=== PATIENT | male | born 1940 | race Two or more races ===

== ENCOUNTER → 2016-07-20 | Day surgery (SDC) | payer MEDICARE, OTHER ==
[2016-07-18 16:01] VITALS: BMI 31.1
[~2016-07-20] MED LIST: LACTATED RINGERS 1,000 ML IV SCH; LIDOCAINE 1% 20 ML VIAL (10MG/ML) FOR IV START INTRADERMA PRN; PROPOFOL 10 MG/ML 20 ML VIAL IV ONE
[2016-07-20 09:24] VITALS: RESP 18; TEMP 97.8
[2016-07-20 10:58] VITALS: BP 127/80; PULSE 65
--- NOTE | 2016-07-20 11:12 | P.PCN ---
Date of Procedure: 07/20/16 Procedure(s) Performed: BRIEF HISTORY: Patient is a 75-year-old pleasant white male, scheduled for an elective colonoscopy as a part of surveillance of prior history of colon polyps. His last coloscopy was 3 years ago and was noted to have multiple colon polyps most of which were tubular adenoma. He is hence scheduled for repeat surveillance colonoscopy today. PROCEDURE PERFORMED: Colonoscopy with snare polypectomy. PREOPERATIVE DIAGNOSIS: History of colon polyps. IV sedation per Anesthesia. PROCEDURE: After informed consent was obtained, the patient, was brought into the endoscopy unit. IV sedation was administered by Anesthesia under continuous monitoring. Digital rectal examination was normal. Initially the Olympus CF- 160 flexible video colonoscope was then inserted in the rectum, gradually advanced into the cecum without any difficulty. Careful examination was performed as the scope was gradually being withdrawn. Ileocecal valve and the appendiceal orifice were visualized and appeared normal. Prep was excellent. In the base of the cecum there was a centimeter broad-based polyp that was removed by snare polypectomy. In the ascending colon there was a 5 mm polyp removed by snare polypectomy. In the hepatic flexure there was a 2-3 cm polyp removed by snare polypectomy. In the transverse colon there was a 1 cm polyp removed by snare polypectomy. In the descending colon there was a 1 cm and 2 cm polyps removed by snare polypectomy. There are scattered sigmoid diverticulosis seen. Mucosa of the descending colon, sigmoid colon, and rectum appeared normal. At the sigmoid diverticula seen. Retroflexion was performed in the rectum and internal hemorrhoids were seen. The patient tolerated the procedure well. IMPRESSION: 2 cm broad-based cecal polyp status post snare polypectomy. 2-3 cm hepatic flexure polyp status post polypectomy 5 mm ascending colon polyp status post polypectomy 1 cm transverse colon polyp serous posterior polypectomy 1 cm and 2 cm descending colon polyp status post polypectomy RECOMMENDATIONS: Findings of this examination were discussed with the patient as well as his family. He was advised to follow with the biopsy results. If the biopsy shows a tubular adenoma he can have a repeat colonoscopy in one to 2 years. He was advised to resume Coumadin in 2 days..
== END | disposition home or self-care (01) ==
LOC: ORWHC2ENDO 08:51
PROVIDERS: ATTEND Internal Medicine Gastroenterology
DX: Z12.11 Encounter for screening for malignant neoplasm of colon (principal); D12.0 Benign neoplasm of cecum; D12.3 Benign neoplasm of transverse colon; D12.4 Benign neoplasm of descending colon; D12.5 Benign neoplasm of sigmoid colon; K57.30 Diverticulosis of large intestine without perforation or abscess without bleeding; Z86.010 Personal history of colon polyps; Z87.891 Personal history of nicotine dependence; I49.9 Cardiac arrhythmia, unspecified; I10 Essential (primary) hypertension; I97.89 Other postprocedural complications and disorders of the circulatory system, not elsewhere classified; I87.2 Venous insufficiency (chronic) (peripheral); Z79.01 Long term (current) use of anticoagulants; Z79.899 Other long term (current) drug therapy; Z87.19 Personal history of other diseases of the digestive system; Z88.2 Allergy status to sulfonamides
CPT/HCPCS: 45385; J2704; 88305

== ENCOUNTER → 2016-11-15 | Outpatient (CLI) | payer MEDICARE, OTHER ==
[2016-11-15 11:33] LABS: ALT 32 U/L (21-72); AST 29 U/L (17-59); Alkaline Phosphatase 96 U/L (38-126); Anion Gap 9 mmol/L; Blood Urea Nitrogen 20 mg/dL (9-20); Calcium 8.7 mg/dL (8.4-10.2); Carbon Dioxide 28 mmol/L (22-30); Chloride 105 mmol/L (98-107); Glucose 89 mg/dL (74-99); Non-African American GFR(MDRD) >60 (>60 ml/min/1.73 sqM); Potassium 4.6 mmol/L (3.5-5.1); Sodium 142 mmol/L (137-145); Total Bilirubin 1.1 mg/dL (0.2-1.3); Total Protein 6.9 g/dL (6.3-8.2)
[2016-11-15 11:36] LABS: Anisocytosis Slight; CH 25.9; HCT 39.7 % (39.0-53.0); HDW 2.66; HGB 12.1 gm/dL (13.0-17.5); Hypochromasia Slight; MCH 25.6 pg (25.0-35.0); MCHC 30.5 g/dL (31.0-37.0); MCV 84.2 fL (80.0-100.0); Mean Platelet Volume 9.3; RBC 4.72 m/uL (4.30-5.90); RDW 17.9 % (11.5-15.5); WBC 5.1 k/uL (3.8-10.6)
== END | disposition home or self-care (01) ==
LOC: LABPAT 10:47
PROVIDERS: ATTEND Anesthesiology
DX: Z01.812 Encounter for preprocedural laboratory examination (principal)
CPT/HCPCS: 80053; 85027

== ENCOUNTER → 2016-11-30 | Outpatient (CLI) | payer MEDICARE, OTHER | END | disposition home or self-care (01) | LOC: LABWHC1 11:35 | PROVIDERS: ATTEND Surgery | DX: Z01.812 Encounter for preprocedural laboratory examination (principal) | CPT/HCPCS: 86850; 86900; 86901 ==

== ENCOUNTER 2016-12-06 05:47 | Day surgery (SDC) | payer MEDICARE, OTHER ==
[2016-11-14 11:07] VITALS: BMI 31.1
[~2016-12-06 05:47] MED LIST changes: +HEPARIN SODIUM,PORCINE 5,000 UNIT/ML 1 ML VIAL SQ ONE; -LACTATED RINGERS 1,000 ML IV SCH; -LIDOCAINE 1% 20 ML VIAL (10MG/ML) FOR IV START INTRADERMA PRN; -PROPOFOL 10 MG/ML 20 ML VIAL IV ONE; +ceFAZolin 2 GM in SODIUM CHLORIDE 0.9% 100 ML IVPB ONE
[2016-12-06] MEDS ORDERED: HYDROmorphone 1 MG/ML 1 ML SYRINGE IVP PRN (06:07)
[2016-12-06] MEDS ORDERED: DEXAMETHASONE SOD PHOSPHATE 10 MG/ML 1 ML VIAL IV ONE (06:07)
[2016-12-06] MEDS ORDERED: LACTATED RINGERS 1,000 ML IV SCH (06:07)
[2016-12-06] MEDS ORDERED: LIDOCAINE 1% 20 ML VIAL (10MG/ML) FOR IV START INTRADERMA PRN (06:07)
[2016-12-06] MEDS ORDERED: ONDANSETRON 4 MG/2 ML VIAL IVP ONE ×2 (06:07→14:06)
[2016-12-06 07:26] LABS: INR 1.3 (<1.2); Prothrombin Time 12.4 sec (9.0-12.0)
[2016-12-06] MEDS ORDERED: fentaNYL (PF) 50 MCG/ML 2 ML AMP ONE (07:35)
[2016-12-06] MEDS ORDERED: LIDOCAINE 1% INJ 10MG/ML (20 ML MDV) ONE (07:35)
[2016-12-06] MEDS ORDERED: ROCURONIUM BROMIDE 10 MG/ML 10 ML VIAL IV ONE (07:35)
[2016-12-06] MEDS ORDERED: MIDAZOLAM 2 MG/2 ML VIAL ONE (07:35)
[2016-12-06] MEDS ORDERED: PROPOFOL 10 MG/ML 20 ML VIAL IV ONE (07:35)
[2016-12-06] MEDS ORDERED: SUCCINYLCHOLINE CHLORIDE 100 MG/5 ML SYR IV ONE (07:35)
[2016-12-06] MEDS ORDERED: GLYCOPYRROLATE 0.2 MG/ML 2 ML VIAL ONE (07:35)
[2016-12-06] MEDS ORDERED: ePHEDrine SULFATE/0.9% NACL/PF 50 MG/5 ML SYRINGE IV ONE (07:35)
[2016-12-06] MEDS ORDERED: NEOSTIGMINE 1 MG/ML 10 ML VIAL ONE (07:35)
[2016-12-06] MEDS ORDERED: LIDOCAINE 2%-EPI 1:100,000 20 ML VIAL SQ ONE (07:57)
[2016-12-06] MEDS ORDERED: LACTATED RINGERS 1,000 ML IV ONE ×2 (08:40→08:57)
[2016-12-06 10:34] VITALS: TEMP 97.6
--- NOTE | 2016-12-06 10:39 | P.OP ---
Date of Procedure: 12/06/16 Preoperative Diagnosis: Epigastric incisional hernia Postoperative Diagnosis: EPigastric incisional hernia Right lower quadrant adhesion Procedure(s) Performed: Transabdominal preperitoneal repair of epigastric incisional hernia with 10 x 15 Bard Pro nurse manager mesh Lysis of adhesion Anesthesia: MARYANN Surgeon: Beverly Moss Estimated Blood Loss (ml): 50 Pathology: none sent Condition: stable Disposition: PACU Operative Findings: 3 fascial defects in the epigastrium measuring between 0.4 and 1.5 cm. All of them were in the epigastrium at the site of the previous surgery Single omental band adhesion to the right-sided abdominal wall Description of Procedure: Obtaining informed consent patient was taken to the operating room placed in supine position given general anesthesia with endotracheal intubation. Sauceda catheter was placed as the patient has not urinated prior to the surgery. After appropriate timeout out the patient was prepped and draped in the usual sterile surgical fashion. Left upper quadrant was identified and incision made at the prominence point after local anesthesia. I abdomen was entered with the help of a Veress needle with out to and it was insufflated to 15 mmHg. Once the needle was removed Optiview technique was used to enter the abdominal cavity and place a 5 mm port. On entry was noted that the patient had a single band adhesion extending from the omentum to the right lower quadrant. The patient's epigastric hernia was above the L4 ligament. The robotic ports were placed under direct vision with the 8 mm port in the left lower quadrant with a 12 mm port in the appropriate separation in the left lower quadrant and then the 8 early Misbah port in the left upper quadrant. The patient was turned with the left arm up reverse Trendelenburg position. Robot was docked. Incision was made in the peritoneum appropriate distance from the hernia itself. And a preperitoneal plane was created and running towards the Flat position. The falciform ligament had to be transected and 1.8 to make a good flap once the flap had been made the hernia contents were removed revealing at least 3 consecutive fascial defects. These defects were then closed with 0V LOC. Retrimmed 10 x 15 Pro nurse manager mesh was then taken unrolled and put in appropriate position. It was tacked into position onto the anterior abdominal wall with loose air stitches using 2-0 Vicryl. The flap was then closed with 20V lock and all holes closed with Vicryl. Attention was then turned towards the adhesion which was taken down with the help of electrocautery. Bleeding a small abdominal wall attachment was closed shut with 2-0 Vicryl and bleeding controlled with the help of electrocautery. At the end all sponge needles and instruments were removed abdomen was thoroughly sucked dry there was no active bleeding at the completion of the procedure. The robot was then undocked and the 12 mm port site was closed with the help of a Audie Ford under direct vision using 0 Vicryl suture. At this time the gas was shut off and abdomen was thoroughly desufflated. All incisions were closed with 4-0 Maxon. Patient' s Sauceda was removed using extubated and taken to recovery room in stable condition. Patient's family was also informed about that finding of the adhesion with a possible hernia associated with it that may require surgery at a later date. Plan - Discharge Summary New Discharge Prescriptions: New HYDROcodone/APAP 5-325MG [Chester 5-325] 1 tab PO Q6HR PRN #25 tab PRN Reason: Pain No Action Nitroglycerin Sl Tabs [Nitrostat] 0.4 mg SUBLINGUAL DIRECTED PRN PRN Reason: Chest Pain amLODIPine [Norvasc] 5 mg PO QAM Warfarin [Coumadin] 5 mg PO MOTUTHSA PARoxetine [Paxil] 20 mg PO QAM Atenolol [Tenormin] 25 mg PO QAM Warfarin [Coumadin] 2.5 mg PO SUWEFR Isosorbide Mononitrate ER [Imdur] 30 mg PO QAM Furosemide [Lasix] 20 mg PO QAM Multivitamins, Thera [Multivitamin (formulary)] 1 tab PO DAILY Calcium Carbonate [Calcium] 600 mg PO DAILY Discharge Medication List Atenolol [Tenormin] 25 mg PO QAM 11/26/13 [History] Nitroglycerin Sl Tabs [Nitrostat] 0.4 mg SUBLINGUAL DIRECTED PRN 11/26/13 [ History] PARoxetine [Paxil] 20 mg PO QAM 11/26/13 [History] Warfarin [Coumadin] 5 mg PO MOTUTHSA 11/26/13 [History] amLODIPine [Norvasc] 5 mg PO QAM 11/26/13 [History] Isosorbide Mononitrate ER [Imdur] 30 mg PO QAM 07/14/14 [History] Warfarin [Coumadin] 2.5 mg PO SUWEFR 07/14/14 [History] Calcium Carbonate [Calcium] 600 mg PO DAILY 11/14/16 [History] Furosemide [Lasix] 20 mg PO QAM 11/14/16 [History] Multivitamins, Thera [Multivitamin (formulary)] 1 tab PO DAILY 11/14/16 [History ] HYDROcodone/APAP 5-325MG [Chester 5-325] 1 tab PO Q6HR PRN #25 tab 12/06/16 [Rx] Follow up Appointment(s)/Referral(s): Beverly Moss MD [STAFF PHYSICIAN] - 1 Week Activity/Diet/Wound Care/Special Instructions: Regular diet Ambulate as tolerated Use incentive spirometer as directed No driving on pain medications or when having pain May shower in 24 hours No heavy lifting more than 20 lbs for 6 weeks Discharge Disposition: HOME SELF-CARE
[2016-12-06 11:11] VITALS: RESP 18
[2016-12-06] MEDS ORDERED: HYDROcodone/APAP 5-325MG 1 EACH TAB PO ONE ×2 (11:59→13:21)
[2016-12-06] MEDS ORDERED: TAMSULOSIN 0.4 MG CAP.ER.24H PO ONE (12:00)
[2016-12-06 12:36] VITALS: PULSE 83
[2016-12-06 14:58] VITALS: BP 152/95
[2016-12-07] MEDS ORDERED: TAMSULOSIN 0.4 MG CAP.ER.24H PO SCH (08:30)
== END 2016-12-06 15:42 | disposition home or self-care (01) ==
LOC: OR 05:47 → EDSTATUS 07:30 → OR 15:42
PROVIDERS: ATTEND Surgery
DX: K43.2 Incisional hernia without obstruction or gangrene (principal); K66.0 Peritoneal adhesions (postprocedural) (postinfection); I48.91 Unspecified atrial fibrillation; Z79.01 Long term (current) use of anticoagulants; E66.9 Obesity, unspecified; Z68.39 Body mass index [BMI] 39.0-39.9, adult; Z87.891 Personal history of nicotine dependence; I25.10 Atherosclerotic heart disease of native coronary artery without angina pectoris; I10 Essential (primary) hypertension; Z79.899 Other long term (current) drug therapy; Z88.1 Allergy status to other antibiotic agents
CPT/HCPCS: 49654; 86900; 86901; 85610; 86850; C1781; J2250; J1644; J1100; J2710; J0690; J2405; J2001; J3010; J0330; J2704

== ENCOUNTER → 2017-08-05 | Outpatient (CLI) | payer MEDICARE, OTHER ==
--- NOTE | 2017-08-05 15:28 | CT ---
EXAMINATION TYPE: CT abdomen w con DATE OF EXAM: 08/05/2017 COMPARISON: Complete abdominal ultrasound November 10, 2013 HISTORY: renal cyst CT DLP: 1205 mGycm, Automated Exposure Control for Dose Reduction was Utilized. CONTRAST: CT scan of the abdomen is performed with oral and with IV Contrast, patient injected with 100 mL of I sovue 300. FINDINGS: LUNG BASES: There is cardiomegaly with moderate to severe biatrial dilatation. There is moderate to s evere right ventricular dilatation. RV/LV ratio is greater than 1. There is reflux of contrast into I VC and hepatic veins with IVC dilatation There is partial visualization of small to moderate-sized ri ght pleural effusion or fluid collection. There is patchy bibasilar linear scarring and/or atelectasi s. Sternal wires are partially imaged. LIVER/GB: Liver is slightly small in size with tiny amount of perihepatic ascites anteriorly and supe riorly. There is patent main portal vein not enlarged at 16 mm image 30 series 7. Liver is overall lo w density. PANCREAS: No significant abnormality is seen. SPLEEN: There is trace perisplenic ascites along posterior lateral margin axial image 15 ADRENALS: No significant abnormality is seen. KIDNEYS: In the right kidney there is partially exophytic 1.8 x 1.1 cm hypodense lesion, Hounsfield u nits average 24 favoring proteinaceous cyst axial series 3 image 33. In the left kidney there is small simple appearing parapelvic cyst axial image 35 series 7 measuring 1.5 cm. From upper pole level there is large exophytic thin-walled cyst with local mass effect measur ing 11 x 10 by almost 11 mm axial image 26 and coronal image 75. From lower pole level laterally ther e is 2.0 x 1.5 cm exophytic slightly low dense lesion with Hounsfield units averaging between 40 and 50 noted. BOWEL: The oral contrast does not reach colonic level. There is no suspicious small or large bowel di latation. LYMPH NODES: No greater than 1cm abdominal lymph nodes are appreciated. There are slightly prominent but subcentimeter lymph nodes throughout the retroperitoneum. OSSEOUS STRUCTURES: There is mild multilevel spurring in the spine. OTHER: No significant additional abnormality is seen. IMPRESSION: 1. Large exophytic 11 cm simple appearing cyst upper pole level left kidney with local mass effect, f elt increased in size from October 2013 ultrasound. Nonspecific hypodense lesions in both kidneys like ly reflect proteinaceous cysts as were seen on prior ultrasound. Cannot exclude solid lesion on the l eft side without noncontrast imaging correlation. 2. There is CT evidence consistent with right heart failure as there is cardiomegaly with right ventr icular dilatation, there is reflux of contrast into IVC with dilatation. There is at least small righ t pleural effusion and trace upper abdominal ascites noted.
== END | disposition home or self-care (01) ==
LOC: RADCTMAIN 13:54
PROVIDERS: ATTEND Family Medicine
DX: N28.1 Cyst of kidney, acquired (principal); N28.89 Other specified disorders of kidney and ureter
CPT/HCPCS: 82565; 84520; 74160; 36415; Q9967

== ENCOUNTER → 2017-08-16 | Outpatient (CLI) | payer MEDICARE, OTHER ==
[2017-08-16 11:13] LABS: Calcium 9.4 mg/dL (8.4-10.2); Potassium 4.6 mmol/L (3.5-5.1)
== END | disposition home or self-care (01) ==
LOC: LABWHC1 10:26
PROVIDERS: ATTEND Internal Medicine Cardiovascular Disease
DX: I50.9 Heart failure, unspecified (principal)
CPT/HCPCS: 36415; 80048

== ENCOUNTER → 2017-10-11 | Outpatient (CLI) | payer MEDICARE, OTHER ==
--- NOTE | 2017-10-11 14:54 | US ---
EXAMINATION TYPE: US kidneys/renal and bladder DATE OF EXAM: 10/11/2017 COMPARISON: CT abdomen August 05, 2017 CLINICAL HISTORY: N28.1 Left renal cyst; bilateral renal cysts EXAM MEASUREMENTS: Right Kidney: 11.1 x 5.4 x 4.7 cm Left Kidney: 11.5 x 5.6 x 5.2 cm Post Void Residual Volume: patient was unable to void Right Kidney: mid lateral cortical cyst noted = 2.2 x 2.1 x 2.0cm; inferior cortical cyst is present = 0.7 x 0.8 x 0.7cm Left Kidney: large simple cyst superior pole = 11.8 x 10.8 x 10.4cm; lower pole cortical cyst = 1.5 x 1.5 x 1.4cm Bladder: not fully distended Bilateral Jets seen: no, only right ureteral jet was seen after 3 minute observation IMPRESSION: There is redemonstration of large otherwise simple appearing cyst measuring almost 12 cm long axis ex ophytically from upper pole level left kidney. Smaller appearing cysts are noted bilaterally. No worr isome solid or cystic renal mass is present on images saved.
== END | disposition home or self-care (01) ==
LOC: RADUSWWP 13:58
PROVIDERS: ATTEND Urology
DX: N28.1 Cyst of kidney, acquired (principal)
CPT/HCPCS: 76770

== ENCOUNTER 2018-10-12 09:48 | Emergency (ER) | payer MEDICARE, OTHER ==
[2018-10-12] MEDS ORDERED: ONDANSETRON 4 MG/2 ML VIAL IVP STA (10:38)
[2018-10-12 11:07] LABS: Basophils % (A) 0 %; Eosinophils # (A) 0.1 k/uL (0-0.7); Eosinophils % (A) 1 %; HCT 45.6 % (39.0-53.0); HGB 14.8 gm/dL (13.0-17.5); Lymphocytes # (A) 0.6 k/uL (1.0-4.8); Lymphocytes % (A) 11 %; MCHC 32.4 g/dL (31.0-37.0); MCV 86.6 fL (80.0-100.0); Mean Platelet Volume 8.9; Monocytes # (A) 0.4 k/uL (0-1.0); Monocytes % (A) 6 %; Neutrophils # (A) 4.4 k/uL (1.3-7.7); Neutrophils % (A) 79 %; Platelet Count 137 k/uL (150-450); RBC 5.27 m/uL (4.30-5.90); RDW 15.5 % (11.5-15.5); WBC 5.6 k/uL (3.8-10.6)
[2018-10-12 11:11] LABS: Albumin 4.4 g/dL (3.5-5.0); Calcium 9.2 mg/dL (8.4-10.2); Potassium 4.7 mmol/L (3.5-5.1); Total Bilirubin 1.9 mg/dL (0.2-1.3); Total Protein 7.4 g/dL (6.3-8.2)
[2018-10-12 11:29] LABS: Appearance,Urine Clear (Clear); Bilirubin,Urine Negative (Negative); Blood,Urine Trace (Negative); Color,Urine Yellow; Glucose,Urine (UA) Negative (Negative); Ketones,Urine Negative (Negative); Leukocyte Esterase,Urine Negative (Negative); Mucus,Urine Rare /hpf; Nitrite,Urine Negative (Negative); PH, Urine 5.5 (5.0-8.0); Protein,Urine Negative (Negative); RBC,Urine 2 /hpf (0-5); Specific Gravity,Urine 1.015 (1.001-1.035); Squamous Epithelial Cell,Urine <1 /hpf (0-4); Urobilinogen,Urine <2.0 mg/dL (<2.0)
--- NOTE | 2018-10-12 11:43 | ED ---
Abdominal Pain HPI - General Chief Complaint: Abdominal Pain Stated Complaint: Abd Pain Time Seen by Provider: 10/12/18 10:16 Source: patient Mode of arrival: ambulatory Limitations: no limitations - History of Present Illness Initial Comments: Patient is a 78-year-old male presenting to the emergency Department with complaints of abdominal pain since this morning. Patient states he has a history of multiple umbilical hernia repairs with the most recent being 2 years ago. Patient states he started noticing pain early this morning and the pain has progressed. Patient states when he lays down he sees a bulge in his stomach. Patient also admits to having nausea and and mild vomiting. Patient states his pain is right above his bellybutton, and at rest it is tolerable at 2 /10 pain. Patient is denying fever, chills, chest pain, cough, urinary complaints. Patient admits to having a bowel movement yesterday morning which was normal. Patient denies any other complaints at this time. Patient's son is here with him right now. Upon arrival, vital signs are stable patient is resting comfortably on the bed. - Related Data Home Medications Medication Instructions Recorded Confirmed Nitroglycerin Sl Tabs [Nitrostat] 0.4 mg SUBLINGUAL Q5M PRN 11/26/13 10/12/18 PARoxetine [Paxil] 20 mg PO QAM 11/26/13 10/12/18 Warfarin [Coumadin] 5 mg PO TUTHSA 11/26/13 10/12/18 Isosorbide Mononitrate ER [Imdur] 30 mg PO QAM 07/14/14 10/12/18 Metoprolol Succinate (ER) [Toprol 25 mg PO DAILY 10/12/18 10/12/18 Xl] Spironolactone [Aldactone] 25 mg PO DAILY 10/12/18 10/12/18 Warfarin [Coumadin] 2.5 mg PO SUMOWEFR 10/12/18 10/12/18 amLODIPine [Norvasc] 5 mg PO DAILY 10/12/18 10/12/18 Previous Rx's Medication Instructions Recorded Ondansetron Odt [Zofran Odt] 4 mg PO Q8HR PRN #10 tab 10/12/18 Allergies Allergy/AdvReac Type Severity Reaction Status Date / Time clindamycin Allergy Rash/Hives/ Verified 10/12/18 10:33 ITCHING MED USED FOR CHEMICAL STRESS Allergy Rash/Hives/ Uncoded 10/12/18 10:04 TEST ITCHING Review of Systems ROS Statement: Those systems with pertinent positive or pertinent negative responses have been documented in the HPI. ROS Other: All systems not noted in ROS Statement are negative. Past Medical History Past Medical History: Atrial Fibrillation, Chest Pain / Angina, Hypertension, Osteoarthritis (OA), Vascular Disorder Additional Past Medical History / Comment(s): VENTRAL HERNIA, HX OF COLON POLYPS, VENOUS INSUFFICIENCY-KATHY. 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, History of Any Multi-Drug Resistant Organisms: None Reported Past Surgical History: Cholecystectomy, Heart Catheterization Additional Past Surgical History / Comment(s): HEMORRHOIDECTOMY, HOLE IN HEART REPAIRED 1987(ATRIAL SEPTO DEFECT CLOSURE), "FLUID DRAINED OFF LEFT LUNG IN PAS T" Past Anesthesia/Blood Transfusion Reactions: No Reported Reaction Past Psychological History: Anxiety Smoking Status: Former smoker Past Alcohol Use History: None Reported Past Drug Use History: None Reported - Past Family History Father Family Medical History: Cancer Additional Family Medical History / Comment(s): LUNG CA Sister(s) Family Medical History: Cancer Additional Family Medical History / Comment(s): SKIN CA General Exam - General Exam Comments Initial Comments: GENERAL: Well-appearing, well-nourished and in no acute distress. HEAD: Atraumatic, normocephalic. EYES: Pupils equal round and reactive to light, extraocular movements intact, sclera anicteric, conjunctiva are normal. ENT: TMs normal, nares patent, oropharynx clear without exudates. Moist mucous membranes. NECK: Normal range of motion, supple without lymphadenopathy or JVD. LUNGS: Breath sounds clear to auscultation bilaterally and equal. No wheezes rales or rhonchi. HEART: Regular rate and rhythm without murmurs, rubs or gallops. ABDOMEN: Tender to palpation above the umbilicus. Small bulge noted superior to the umbilicus with abdominal contraction. Soft, hypoactive bowel sounds. No guarding, no rebound. No CVA tenderness. : Deferred EXTREMITIES: Normal range of motion, no pitting or edema. No clubbing or cyanosis. NEUROLOGICAL: Cranial nerves II through XII grossly intact. Normal speech, normal gait. PSYCH: Normal mood, normal affect. SKIN: Warm, Dry, normal turgor, no rashes or lesions noted. Limitations: no limitations Course Vital Signs 10/12/18 10/12/18 10:01 13:51 Temperature 97.6 F 98.2 F Pulse Rate 69 67 Respiratory 16 18 Rate Blood Pressure 136/84 136/95 O2 Sat by Pulse 96 97 Oximetry Medical Decision Making - Medical Decision Making Patient is a 78-year-old male presenting with abdominal pain since this morning. Patient admits to associated nausea and mild vomiting as well. Patient states he has a history of multiple umbilical hernias, last one repaired 2 years ago. Patient denies fever, chills. On exam patient has tenderness in the umbilical region, slight bulge with abdominal contraction. CBC shows no acute infection process. CMP shows bilirubin 1.9, AST 133, lipase 552. Everything else is within normal limits. UA is within normal limits. CT of the abdomen shows a cyst on the left kidney that has enlarged slightly since last exam. No other acute findings. Findings were discussed with the patient, discussed that abdominal pain is likely viral in nature versus dehydration. Patient has been pain-free since arrival. Patient states the Zofran did help with the nausea. Case was discussed with Dr. Villalobos is agrees patient is stable for discharge. Return parameters were discussed with the patient he verbalized understanding. Was recommended to the patient to follow up with his PCP next week to have his labs redrawn. Pt agreed. - Lab Data Result diagrams: 10/12/18 10:50 10/12/18 10:50 Lab Results 10/12/18 10/12/18 10/12/18 Range/Units 10:50 10:50 11:17 WBC 5.6 (3.8-10.6) k/uL RBC 5.27 (4.30-5.90) m/uL Hgb 14.8 (13.0-17.5) gm/dL Hct 45.6 (39.0-53.0) % MCV 86.6 (80.0-100.0) fL MCH 28.0 (25.0-35.0) pg MCHC 32.4 (31.0-37.0) g/dL RDW 15.5 (11.5-15.5) % Plt Count 137 L (150-450) k/uL Neutrophils % 79 % Lymphocytes % 11 % Monocytes % 6 % Eosinophils % 1 % Basophils % 0 % Neutrophils # 4.4 (1.3-7.7) k/uL Lymphocytes # 0.6 L (1.0-4.8) k/uL Monocytes # 0.4 (0-1.0) k/uL Eosinophils # 0.1 (0-0.7) k/uL Basophils # 0.0 (0-0.2) k/uL Sodium 140 (137-145) mmol/L Potassium 4.7 (3.5-5.1) mmol/L Chloride 104 (98-107) mmol/L Carbon Dioxide 27 (22-30) mmol/L Anion Gap 9 mmol/L BUN 23 H (9-20) mg/dL Creatinine 1.21 (0.66-1.25) mg/dL Est GFR (CKD-EPI)AfAm 65 (>60 ml/min/1.73 sqM) Est GFR (CKD-EPI)NonAf 56 (>60 ml/min/1.73 sqM) Glucose 105 H (74-99) mg/dL Calcium 9.2 (8.4-10.2) mg/dL Total Bilirubin 1.9 H (0.2-1.3) mg/dL AST 133 H (17-59) U/L ALT 59 (21-72) U/L Alkaline Phosphatase 95 (38-126) U/L Total Protein 7.4 (6.3-8.2) g/dL Albumin 4.4 (3.5-5.0) g/dL Lipase 552 H (23-300) U/L Urine Color Yellow Urine Appearance Clear (Clear) Urine pH 5.5 (5.0-8.0) Ur Specific [place] 1.015 (1.001-1.035) Urine Protein Negative (Negative) Urine Glucose (UA) Negative (Negative) Urine Ketones Negative (Negative) Urine Blood Trace H (Negative) Urine Nitrite Negative (Negative) Urine Bilirubin Negative (Negative) Urine Urobilinogen <2.0 (<2.0) mg/dL Ur Leukocyte Esterase Negative (Negative) Urine RBC 2 (0-5) /hpf Urine WBC 1 (0-5) /hpf Ur Squamous Epith Cells <1 (0-4) /hpf Urine Mucus Rare H (None) /hpf Disposition Clinical Impression: Abdominal pain Disposition: HOME SELF-CARE Condition: Stable Instructions (If sedation given, give patient instructions): Abdominal Pain (ED) Additional Instructions: Please return to the Emergency Department if symptoms worsen or any other concerns. Follow-up with PCP next week to have lab work rechecked. Prescriptions: Ondansetron Odt [Zofran Odt] 4 mg PO Q8HR PRN #10 tab PRN Reason: Nausea Is patient prescribed a controlled substance at d/c from ED?: No Referrals: Darian Jefferson DO [Primary Care Provider] - 1-2 days
--- NOTE | 2018-10-12 12:42 | CT ---
EXAMINATION TYPE: CT abdomen pelvis w con DATE OF EXAM: 10/12/2018 REFERENCE: NONE HISTORY: Pain HISTORY: Abdominal pain REFERENCE: Previous CT scan of the abdomen dated 08/05/2017. CT DLP: 1338.9 mGy Automated exposure control for dose reduction was used. TECHNIQUE: Helical acquisition through the abdomen and pelvis was obtained following the oral ingesti on of without Oral Contrast and following intravenous administration of 100 ml mL of Isovue 300. The data was reformatted in axial, coronal and sagittal projections. FINDINGS: The patient's right pleural effusion has resolved. There is some dependent atelectasis at the lung bases. There is atelectasis or early infiltrate within the left lingula. The heart is enlarg ed. There is no pericardial fluid. Within the abdomen, the gallbladder is been removed. The liver and spleen are normal. Both adrenal glands are normal. There is an enlarging, simple appearing cyst involving the upper pole of the left kidney. Previously this measured 1.1 x 1 x 1.1 cm. Today this measures 1.2 x 1.1 x 1.3 cm. There is a smaller, 2.[address] arising from the mid polar region of the left kidney. Additional cystic lesions are noted in the i nferior pole of the left kidney and also elsewhere in the right kidney. These appear unchanged. The pancreas is unremarkable. There is no significant retroperitoneal, iliac or inguinal adenopathy. The bladder is unremarkable. The rectum is full of feces. There is no significant diverticular change and there is no radiographic evidence of diverticulitis. The appendix is not visualized with certainty. Small bowel loops are of normal caliber. No free fluid and no free air is identified. There is degenerative change in the hips and spine. No bony destructive lesion is seen. IMPRESSION: 1. ENLARGING EXOPHYTIC LEFT UPPER POLE RENAL CYST. 2. CARDIOMEGALY. 3. DEGENERATIVE CHANGES IN THE HIPS AND SPINE.
[2018-10-12 13:53] VITALS: BP 136/95; PULSE 67; RESP 18; TEMP 98.2
== END 2018-10-12 13:55 | disposition home or self-care (01) ==
LOC: EC 09:48
DX: R10.9 Unspecified abdominal pain (principal); N28.1 Cyst of kidney, acquired; R19.05 Periumbilic swelling, mass or lump; R11.2 Nausea with vomiting, unspecified; I48.91 Unspecified atrial fibrillation; I10 Essential (primary) hypertension; F41.9 Anxiety disorder, unspecified; Z87.891 Personal history of nicotine dependence; Z88.1 Allergy status to other antibiotic agents; Z88.8 Allergy status to other drugs, medicaments and biological substances; Z79.01 Long term (current) use of anticoagulants; Z79.899 Other long term (current) drug therapy; Z86.010 Personal history of colon polyps; Z87.19 Personal history of other diseases of the digestive system; Z90.49 Acquired absence of other specified parts of digestive tract; Z98.890 Other specified postprocedural states
CPT/HCPCS: 36415; 80053; 83690; 85025; 81001; 74177; 99284; 96374; J2405; Q9967

== ENCOUNTER 2020-01-07 12:02 | Observation (INO) | payer MEDICARE, OTHER ==
[2020-01-07] MEDS ORDERED: PANTOPRAZOLE 40 MG/10 ML VIAL IVP STA (12:34)
[2020-01-07] MEDS ORDERED: MAG HYDROX/AL HYDROX/SIMETH 30 ML, HYOSCYAMINE ELIXIR 10 ML, LIDOCAINE VISCOUS 2% 10 ML PO STA ×3 (12:35)
--- NOTE | 2020-01-07 12:42 | ED ---
General Adult HPI - General Chief complaint: Recheck/Abnormal Lab/Rx Stated complaint: Abnormal EKG, sent by dr Time Seen by Provider: 01/07/20 12:26 Source: patient, RN notes reviewed, old records reviewed Mode of arrival: wheelchair - History of Present Illness Initial comments: 79-year-old male presenting with 4 days of lower chest and upper abdominal pain. Patient was seen in urgent care, noted to be in atrial fibrillation which the patient does have history of and was sent to the emergency department for evaluation. He reports a squeezing sensation that begins in his upper chest and travels into his abdomen. This is accompanied by increased saliva and nausea. He has no known history of coronary artery disease, no history of gastric reflux. He is on Coumadin with a history of atrial fibrillation. Denies melena. Denies bright red rectal bleeding. He had one episode of diarrhea. No fever. No shortness of breath. - Related Data Home Medications Medication Instructions Recorded Confirmed Nitroglycerin Sl Tabs [Nitrostat] 0.4 mg SUBLINGUAL Q5M PRN 11/26/13 01/07/20 PARoxetine [Paxil] 20 mg PO QAM 11/26/13 01/07/20 Metoprolol Succinate (ER) [Toprol 12.5 mg PO DAILY@1300 10/12/18 01/07/20 Xl] Furosemide [Lasix] 20 mg PO DAILY 01/07/20 01/07/20 Warfarin Sodium [Jantoven] 2.5 mg PO SUMOTUTHFR 01/07/20 01/07/20 Warfarin Sodium [Jantoven] 5 mg PO WESA 01/07/20 01/07/20 Allergies Allergy/AdvReac Type Severity Reaction Status Date / Time clindamycin Allergy Rash/Hives/ Verified 01/07/20 13:12 ITCHING MED USED FOR CHEMICAL STRESS Allergy Rash/Hives/ Uncoded 01/07/20 12:15 TEST ITCHING Review of Systems ROS Statement: Those systems with pertinent positive or pertinent negative responses have been documented in the HPI. ROS Other: All systems not noted in ROS Statement are negative. Past Medical History Past Medical History: Atrial Fibrillation, Chest Pain / Angina, Hypertension, Osteoarthritis (OA), Vascular Disorder Additional Past Medical History / Comment(s): VENTRAL HERNIA, HX OF COLON POLYPS, VENOUS INSUFFICIENCY-KATHY. 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, History of Any Multi-Drug Resistant Organisms: None Reported Past Surgical History: Cholecystectomy, Heart Catheterization Additional Past Surgical History / Comment(s): HEMORRHOIDECTOMY, HOLE IN HEART REPAIRED 1987(ATRIAL SEPTO DEFECT CLOSURE), "FLUID DRAINED OFF LEFT LUNG IN PAST", left eye cataract removed and implant Past Anesthesia/Blood Transfusion Reactions: No Reported Reaction Past Psychological History: Anxiety Smoking Status: Never smoker Past Alcohol Use History: None Reported Past Drug Use History: None Reported - Past Family History Father Family Medical History: Cancer Additional Family Medical History / Comment(s): LUNG CA Sister(s) Family Medical History: Cancer Additional Family Medical History / Comment(s): SKIN CA General Exam General appearance: alert, in no apparent distress Head exam: Present: atraumatic, normocephalic Eye exam: Present: normal appearance, PERRL ENT exam: Present: normal exam Neck exam: Present: normal inspection. Absent: tenderness, meningismus Respiratory exam: Present: normal lung sounds bilaterally. Absent: respiratory distress, wheezes Cardiovascular Exam: Present: regular rate, irregular rhythm, systolic murmur GI/Abdominal exam: Present: soft. Absent: distended, tenderness, guarding Extremities exam: Present: normal inspection, normal capillary refill. Absent: pedal edema, calf tenderness Neurological exam: Present: alert, oriented X3, CN II-XII intact. Absent: motor sensory deficit Psychiatric exam: Present: normal affect, normal mood Skin exam: Present: warm, dry, intact. Absent: cyanosis, diaphoretic Course Vital Signs 01/07/20 01/07/20 12:11 13:17 Temperature 98.0 F Pulse Rate 76 71 Respiratory 18 18 Rate Blood Pressure 156/103 152/104 O2 Sat by Pulse 98 96 Oximetry EKG Findings - EKG Comments: EKG Findings:: EKG: Atrial fibrillation with PVC, left axis, right bundle-branch block, rate of 71, QRS duration 138, QTC 475, no ST segment elevation Medical Decision Making - Medical Decision Making 79-year-old male history of atrial fibrillation presenting for evaluation of chest discomfort. EKG is atrial fibrillation without ST segment elevation. Chest x-ray showing cardiomegaly without acute process. Patient has normal CBC, CMP show normal white lites, normal kidney function, initial troponin is negative. BNP is elevated, no clinical signs of acute heart failure. Patient will be kept in observation for serial cardiac enzymes, telemetry, cardiology consultation. - Lab Data Result diagrams: 01/07/20 12:40 01/07/20 12:40 Lab Results 01/07/20 01/07/20 01/07/20 Range/Units 12:40 12:40 12:40 WBC 6.7 (3.8-10.6) k/uL RBC 5.44 (4.30-5.90) m/uL Hgb 14.8 (13.0-17.5) gm/dL Hct 48.5 (39.0-53.0) % MCV 89.2 (80.0-100.0) fL MCH 27.1 (25.0-35.0) pg MCHC 30.4 L (31.0-37.0) g/dL RDW 15.4 (11.5-15.5) % Plt Count 135 L (150-450) k/uL Neutrophils % 83 % Lymphocytes % 9 % Monocytes % 6 % Eosinophils % 1 % Basophils % 0 % Neutrophils # 5.6 (1.3-7.7) k/uL Lymphocytes # 0.6 L (1.0-4.8) k/uL Monocytes # 0.4 (0-1.0) k/uL Eosinophils # 0.1 (0-0.7) k/uL Basophils # 0.0 (0-0.2) k/uL Hypochromasia Slight PT 15.8 H (9.0-12.0) sec INR 1.6 H (<1.2) APTT 29.6 (22.0-30.0) sec Sodium 139 (137-145) mmol/L Potassium 4.4 (3.5-5.1) mmol/L Chloride 106 (98-107) mmol/L Carbon Dioxide 26 (22-30) mmol/L Anion Gap 7 mmol/L BUN 18 (9-20) mg/dL Creatinine 1.01 (0.66-1.25) mg/dL Est GFR (CKD-EPI)AfAm 80 (>60 ml/min/1.73 sqM) Est GFR (CKD-EPI)NonAf 70 (>60 ml/min/1.73 sqM) Glucose 100 H (74-99) mg/dL Calcium 8.9 (8.4-10.2) mg/dL Magnesium 2.1 (1.6-2.3) mg/dL Total Bilirubin 2.6 H (0.2-1.3) mg/dL AST 40 (17-59) U/L ALT 23 (4-49) U/L Alkaline Phosphatase 97 (38-126) U/L Troponin I (0.000-0.034) ng/mL NT-Pro-B Natriuret Pep pg/mL Total Protein 7.5 (6.3-8.2) g/dL Albumin 4.4 (3.5-5.0) g/dL Lipase 166 (23-300) U/L 01/07/20 01/07/20 Range/Units 12:40 12:40 WBC (3.8-10.6) k/uL RBC (4.30-5.90) m/uL Hgb (13.0-17.5) gm/dL Hct (39.0-53.0) % MCV (80.0-100.0) fL MCH (25.0-35.0) pg MCHC (31.0-37.0) g/dL RDW (11.5-15.5) % Plt Count (150-450) k/uL Neutrophils % % Lymphocytes % % Monocytes % % Eosinophils % % Basophils % % Neutrophils # (1.3-7.7) k/uL Lymphocytes # (1.0-4.8) k/uL Monocytes # (0-1.0) k/uL Eosinophils # (0-0.7) k/uL Basophils # (0-0.2) k/uL Hypochromasia PT (9.0-12.0) sec INR (<1.2) APTT (22.0-30.0) sec Sodium (137-145) mmol/L Potassium (3.5-5.1) mmol/L Chloride (98-107) mmol/L Carbon Dioxide (22-30) mmol/L Anion Gap mmol/L BUN (9-20) mg/dL Creatinine (0.66-1.25) mg/dL Est GFR (CKD-EPI)AfAm (>60 ml/min/1.73 sqM) Est GFR (CKD-EPI)NonAf (>60 ml/min/1.73 sqM) Glucose (74-99) mg/dL Calcium (8.4-10.2) mg/dL Magnesium (1.6-2.3) mg/dL Total Bilirubin (0.2-1.3) mg/dL AST (17-59) U/L ALT (4-49) U/L Alkaline Phosphatase (38-126) U/L Troponin I <0.012 (0.000-0.034) ng/mL NT-Pro-B Natriuret Pep 3930 pg/mL Total Protein (6.3-8.2) g/dL Albumin (3.5-5.0) g/dL Lipase (23-300) U/L Disposition Clinical Impression: Chest pain Disposition: ADMITTED IP TO THIS [facility] Condition: Stable Is patient prescribed a controlled substance at d/c from ED?: No Referrals: Darian Jefferson DO [Primary Care Provider] - 1-2 days Decision to Admit Reason: Admit from EC Decision Date: 01/07/20 Decision Time: 13:49
--- NOTE | 2020-01-07 12:56 | XR ---
EXAMINATION TYPE: XR chest 2V DATE OF EXAM: 01/07/2020 COMPARISON: 12/01/2013 INDICATION: Chest pain TECHNIQUE: Frontal and lateral views of the chest are obtained. FINDINGS: The heart size is moderately prominent. The pulmonary vasculature is normal. The lungs are clear. IMPRESSION: 1. No acute pulmonary process. 2. Moderate cardiomegaly
[2020-01-07 13:02] LABS: Basophils % (A) 0 %; Eosinophils # (A) 0.1 k/uL (0-0.7); Eosinophils % (A) 1 %; HCT 48.5 % (39.0-53.0); HGB 14.8 gm/dL (13.0-17.5); Hypochromasia Slight; Lymphocytes # (A) 0.6 k/uL (1.0-4.8); Lymphocytes % (A) 9 %; MCH 27.1 pg (25.0-35.0); MCHC 30.4 g/dL (31.0-37.0); MCV 89.2 fL (80.0-100.0); Mean Platelet Volume 9.6; Monocytes # (A) 0.4 k/uL (0-1.0); Monocytes % (A) 6 %; Neutrophils # (A) 5.6 k/uL (1.3-7.7); Neutrophils % (A) 83 %; Platelet Count 135 k/uL (150-450); RBC 5.44 m/uL (4.30-5.90); RDW 15.4 % (11.5-15.5); WBC 6.7 k/uL (3.8-10.6)
[2020-01-07 13:05] LABS: INR 1.6 (<1.2); Partial Thromboplastin Time 29.6 sec (22.0-30.0); Prothrombin Time 15.8 sec (9.0-12.0)
[2020-01-07 13:08] LABS: Albumin 4.4 g/dL (3.5-5.0); Calcium 8.9 mg/dL (8.4-10.2); Magnesium 2.1 mg/dL (1.6-2.3); Potassium 4.4 mmol/L (3.5-5.1); Total Bilirubin 2.6 mg/dL (0.2-1.3); Total Protein 7.5 g/dL (6.3-8.2)
[2020-01-07] MEDS ORDERED: METOPROLOL SUCCINATE (ER) 25 MG TAB.ER.24H PO STA (13:21)
[2020-01-07] MEDS ORDERED: ASPIRIN 325 MG TAB PO STA (13:45)
[2020-01-07] MEDS ORDERED: NALOXONE 0.4 MG/ML 1 ML VIAL IV PRN (13:47)
[2020-01-07] MEDS ORDERED: ACETAMINOPHEN TAB 325 MG TAB PO PRN (13:47)
--- NOTE | 2020-01-07 16:50 | P.HPIM ---
History of Present Illness H&P Date: 01/07/20 Chief Complaint: Gripping sensation in the chest History of presenting complaint: This is a very pleasant 79-year-old patient of Dr. Jefferson. Chronic stable medical conditions include atrial fibrillation, hypertension, osteoarthritis, venous insufficiency, OCD. For 3-4 days patient said been noting a sensation of cramping sensation in the mid to lower chest central going to the abdomen. And sometimes a whole bunch of saliva coming out. Symptoms have been progressive. Not related to eating. Heart with activity. He had noticed it is worse if he is lying down. To the point he had to sit up and sleep yesterday. No fever no chills. No cough. Symptoms are not worse with activity. Occasional heartburn. Patient does follow with Dr. Gt Pollard from cardiology. Review of systems: GEN.: None EYES: None HEENT: None NECK: None RESPIRATORY: None CARDIOVASCULAR: As above GASTROINTESTINAL: As above GENITOURINARY: None MUSCULOSKELETAL: Joint pains LYMPHATICS: None HEMATOLOGICAL: None PSYCHIATRY: None NEUROLOGICAL: None Past medical history to include: Atrial fibrillation, GI bleed, hypertension, osteoarthritis, hemorrhoids, chronic lower extremity venous insufficiency with discoloration, surgery for ASD closure ventral hernia repair with mesh OCD Social history: Lives with his son Frank. Patient smoked for 6 years stopped in 1961. Record a pack a day. Occasional pipe smoking. No alcohol. Physical examination: VITAL SIGNS: 97.7, 78, 16, 162/105, 97% room air GENERAL: BMI 31.4, sitting up, slightly anxious. EYES: Pupils equal. Conjunctiva normal. HEENT: External appearance of nose and ears normal, oral cavity grossly normal. NECK: JVD not raised; masses not palpable. HEART: Heart sounds irregular; no edema. LUNGS: Respiratory rate normal; clear to auscultation. ABDOMEN: Soft, nontender, liver spleen not palpable, no masses palpable. PSYCH: Alert and oriented x3; mood and affect normal. MUSCULAR skeletal: Evidence of OA, NEUROLOGICAL: Cranial nerves grossly intact; no facial asymmetry, power and sensation grossly intact. LYMPHATICS: No lymph nodes palpable in the axilla and neck INVESTIGATIONS, reviewed in the clinical context: White count 6.7 hemoglobin 14.8 platelets 135 INR 1.6 potassium 4.4 creatinine 1.01 Troponin I less than 0.0122 proBNP 3930 EKG tracing personally reviewed by me-atrial fibrillation with PVCs, right bundle branch block pattern Chest x-ray film personally reviewed by me-cardiomegaly Assessment: -This is a patient for 40s having symptoms of spasms in the middle and lower third of the chest going down to the upper abdomen. Followed by large amount of saliva and fluid coming out. This appears to be a esophageal spasm with waterbrash, likely underlying hiatal hernia and silent reflux. -Rule out a cardiac cause -Persistent atrial fibrillation -Essential hypertension -Primary osteoarthritis -Chronic venous insufficiency -OCD Plan: Home medications resumed. Patient started on PPI and Tums. Patient to follow- up with GI as an outpatient. May need an EGD. The meantime patient is put on telemetry to rule out a cardiac cause. 2-D echocardiogram being ordered. Care was discussed with the patient. Questions answered. Past Medical History Past Medical History: Atrial Fibrillation, Chest Pain / Angina, GI Bleed, Hypertension, Osteoarthritis (OA), Vascular Disorder Additional Past Medical History / Comment(s): Arthritis in multiple joints, chronic cervical pain, lower GI bleed, hemorrhoids, benign colon polyps, venouse insufficiency/discoloration bilateral ankles/feet, fluid around L lung after heart surgery with chest tube and now that lung has some scarring. History of Any Multi-Drug Resistant Organisms: None Reported Past Surgical History: Cholecystectomy, Heart Catheterization Additional Past Surgical History / Comment(s): 1987 ASD closure, cardiac cath x2, colonoscopies/benign polypectomies, laparotomy with ventral hernia repair/mesh, bilateral eye cataract removals/lens implants then clouded over and has had L eye lasered. Past Anesthesia/Blood Transfusion Reactions: No Reported Reaction Additional Past Anesthesia/Blood Transfusion Reaction / Comment(s): Pt states he was slow to wake after last colonoscopy. Smoking Status: Former smoker - Past Family History Father Family Medical History: Cancer Additional Family Medical History / Comment(s): LUNG CA. FATHER WAS A SMOKER. Sister(s) Family Medical History: Cancer Additional Family Medical History / Comment(s): SKIN CA Mother Family Medical History: Dementia Medications and Allergies Home Medications Medication Instructions Recorded Confirmed Type Nitroglycerin Sl Tabs [Nitrostat] 0.4 mg SUBLINGUAL Q5M PRN 11/26/13 01/07/20 History PARoxetine [Paxil] 20 mg PO QAM 11/26/13 01/07/20 History Metoprolol Succinate (ER) [Toprol 12.5 mg PO DAILY@1300 10/12/18 01/07/20 History Xl] Furosemide [Lasix] 20 mg PO DAILY 01/07/20 01/07/20 History Warfarin Sodium [Jantoven] 2.5 mg PO SUMOTUTHFR 01/07/20 01/07/20 History Warfarin Sodium [Jantoven] 5 mg PO WESA 01/07/20 01/07/20 History Allergies Allergy/AdvReac Type Severity Reaction Status Date / Time clindamycin Allergy Rash/Hives/ Verified 01/07/20 13:12 ITCHING MED USED FOR CHEMICAL STRESS Allergy Rash/Hives/ Uncoded 01/07/20 12:15 TEST ITCHING Physical Exam Vitals: Vital Signs Temp Pulse Pulse Resp BP BP Pulse Ox 01/07/20 15:00 78 16 01/07/20 14:25 97.7 F 78 16 162/105 97 01/07/20 13:52 97.7 F 71 18 137/97 95 01/07/20 13:17 71 18 152/104 96 01/07/20 12:11 98.0 F 76 18 156/103 98 Intake and Output 01/07/20 01/07/20 01/07/20 06:59 14:59 22:59 Other: Voiding Method Toilet Weight 102.058 kg 102.058 kg Results CBC & Chem 7: 01/07/20 12:40 01/07/20 12:40 Labs: Abnormal Lab Results - Last 24 Hours (Table) 01/07/20 01/07/20 01/07/20 Range/Units 12:40 12:40 12:40 MCHC 30.4 L (31.0-37.0) g/dL Plt Count 135 L (150-450) k/uL Lymphocytes # 0.6 L (1.0-4.8) k/uL PT 15.8 H (9.0-12.0) sec INR 1.6 H (<1.2) Glucose 100 H (74-99) mg/dL Total Bilirubin 2.6 H (0.2-1.3) mg/dL Thrombosis Risk Factor Assmnt - Choose All That Apply Any of the Below Risk Factors Present?: Yes Each Factor Represents 1 point: Obesity (BMI >25) Other Risk Factors: Yes Each Risk Factor Represents 3 Points: Age 75 years or older Other congenital or acquired thrombophilia - If yes, enter type in comment: No Thrombosis Risk Factor Assessment Total Risk Factor Score: 4 Thrombosis Risk Factor Assessment Level: Moderate Risk
[2020-01-07] MEDS: CALCIUM CARBONATE LIQUID 500 MG/5 ML CUP PO SCH (17:43)
[2020-01-07] MEDS: PANTOPRAZOLE 40 MG TABLET PO SCH (17:43)
[2020-01-07] MEDS ORDERED: WARFARIN 5 MG TAB PO ONE (18:00)
[2020-01-08] MEDS: PANTOPRAZOLE 40 MG TABLET PO SCH (06:43)
[2020-01-08] MEDS: CALCIUM CARBONATE LIQUID 500 MG/5 ML CUP PO SCH ×2 (06:43→13:13)
[2020-01-08 07:11] LABS: Prothrombin Time 19.7 sec (9.0-12.0)
[2020-01-08] MEDS ORDERED: PARoxetine 20 MG TAB PO SCH (09:00)
[2020-01-08] MEDS ORDERED: PANTOPRAZOLE 40 MG/10 ML VIAL IV SCH (09:00)
[2020-01-08 09:37] VITALS: BP 148/102; PULSE 66; RESP 18; TEMP 97.8
--- NOTE | 2020-01-08 09:57 | P.CRDCN ---
History of Present Illness Consult date: 01/08/20 Consult reason: chest pain Chief complaint: Chest pain, nausea History of present illness: This is a pleasant 79-year-old gentleman who used to follow with Dr. VC Miller in the office, he follows with Dr. Reyna. He has a history of persistent atrial fibrillation, prior ASD closure several years ago, hyper tension. Presents to the hospital with symptoms that he describes as a midsternal chest pressure and heaviness which at times radiates up into his neck area. At the same time he is having the symptoms he also develops nausea and an uncomfortable feeling in his upper abdominal region. He does not have any vomiting. Patient did have one loose stool but overall his bowel movements have been normal. He denies any fever or chills at home. He also states that recently his blood pressure has been running on the high side. Upon review of the office notes, it appears that the patient had a Lexiscan stress test performed in October of this year which was negative for any reversible ischemia. EKG on presentation here showed atrial fibrillation with occasional PVC, rate controlled. Temperature 97.6, blood pressure 142/70 with a heart rate in the 60s, 96% on room air. White blood cell count 6.7, hemoglobin 14.8, platelet count 135. Pro time 19.2 with an INR of 2.0. Sodium 139, potassium 4.4, BUN 18, creatinine 0.0. Magnesium 2.1 troponin 0.0123 BNP level 3930 which was similar to the patient's prior BNP. Past Medical History Past Medical History: Atrial Fibrillation, Chest Pain / Angina, GI Bleed, Hypertension, Osteoarthritis (OA), Vascular Disorder Additional Past Medical History / Comment(s): Arthritis in multiple joints, chronic cervical pain, lower GI bleed, hemorrhoids, benign colon polyps, venouse insufficiency/discoloration bilateral ankles/feet, fluid around L lung after heart surgery with chest tube and now that lung has some scarring. History of Any Multi-Drug Resistant Organisms: None Reported Past Surgical History: Cholecystectomy, Heart Catheterization Additional Past Surgical History / Comment(s): 1987 ASD closure, cardiac cath x2, colonoscopies/benign polypectomies, laparotomy with ventral hernia repair/mesh, bilateral eye cataract removals/lens implants then clouded over and has had L eye lasered. Past Anesthesia/Blood Transfusion Reactions: No Reported Reaction Additional Past Anesthesia/Blood Transfusion Reaction / Comment(s): Pt states he was slow to wake after last colonoscopy. Smoking Status: Former smoker - Past Family History Father Family Medical History: Cancer Additional Family Medical History / Comment(s): LUNG CA. FATHER WAS A SMOKER. Sister(s) Family Medical History: Cancer Additional Family Medical History / Comment(s): SKIN CA Mother Family Medical History: Dementia Medications and Allergies Home Medications Medication Instructions Recorded Confirmed Type Nitroglycerin Sl Tabs [Nitrostat] 0.4 mg SUBLINGUAL Q5M PRN 11/26/13 01/07/20 History PARoxetine [Paxil] 20 mg PO QAM 11/26/13 01/07/20 History Metoprolol Succinate (ER) [Toprol 12.5 mg PO DAILY@1300 10/12/18 01/07/20 History Xl] Furosemide [Lasix] 20 mg PO DAILY 01/07/20 01/07/20 History Warfarin Sodium [Jantoven] 2.5 mg PO SUMOTUTHFR 01/07/20 01/07/20 History Warfarin Sodium [Jantoven] 5 mg PO WESA 01/07/20 01/07/20 History Allergies Allergy/AdvReac Type Severity Reaction Status Date / Time clindamycin Allergy Rash/Hives/ Verified 01/07/20 13:12 ITCHING MED USED FOR CHEMICAL STRESS Allergy Rash/Hives/ Uncoded 01/07/20 12:15 TEST ITCHING Physical Exam Vitals: Vital Signs Temp Pulse Pulse Resp BP BP BP 01/08/20 09:00 97.8 F 66 18 148/102 151/94 01/08/20 02:05 97.6 F 65 142/75 01/07/20 19:50 98.0 F 66 133/85 01/07/20 15:00 78 16 01/07/20 14:25 97.7 F 78 16 162/105 01/07/20 13:52 97.7 F 71 18 137/97 01/07/20 13:17 71 18 152/104 01/07/20 12:11 98.0 F 76 18 156/103 Pulse Ox 01/08/20 09:00 96 01/08/20 02:05 96 01/07/20 19:50 97 01/07/20 15:00 01/07/20 14:25 97 01/07/20 13:52 95 01/07/20 13:17 96 01/07/20 12:11 98 Intake and Output 01/07/20 01/08/20 01/08/20 22:59 06:59 14:59 Intake Total 300 120 Output Total 500 Balance 300 -500 120 Intake: Oral 300 120 Output: Urine 500 Other: Voiding Method Toilet Toilet Toilet # Voids 1 Weight 102.058 kg PHYSICAL EXAMINATION: GENERAL: 79-year-old gentleman in no acute distress at the time of my examination HEENT: Head is atraumatic, normocephalic. Pupils equal, round. Sclera anicteric. Conjunctiva are clear. Mucous membranes of the mouth are moist. Neck is supple. There is no elevated jugular venous pressure. No carotid bruit is heard. HEART EXAMINATION: Heart S1 and S2 irregularly irregular a systolic murmur is heard CHEST EXAMINATION: Lungs are clear to auscultation and precussion. No chest wall tenderness is noted on palpation or with deep breathing. ABDOMEN: Soft, obese, nontender. Bowel sounds are heard. No organomegaly noted. EXTREMITIES: 2+ peripheral pulses with trace evidence of peripheral edema and no calf tenderness noted. NEUROLOGIC patient is awake, alert and oriented 3 . . Results 01/07/20 12:40 01/07/20 12:40 Cardiac Enzymes 01/07/20 01/07/20 01/07/20 Range/Units 12:40 12:40 15:26 AST 40 (17-59) U/L Troponin I <0.012 <0.012 (0.000-0.034) ng/mL 01/07/20 Range/Units 19:17 AST (17-59) U/L Troponin I <0.012 (0.000-0.034) ng/mL Coagulation 01/07/20 01/08/20 Range/Units 12:40 06:42 PT 15.8 H 19.7 H (9.0-12.0) sec APTT 29.6 (22.0-30.0) sec CBC 01/07/20 Range/Units 12:40 WBC 6.7 (3.8-10.6) k/uL RBC 5.44 (4.30-5.90) m/uL Hgb 14.8 (13.0-17.5) gm/dL Hct 48.5 (39.0-53.0) % Plt Count 135 L (150-450) k/uL Comprehensive Metabolic Panel 01/07/20 Range/Units 12:40 Sodium 139 (137-145) mmol/L Potassium 4.4 (3.5-5.1) mmol/L Chloride 106 (98-107) mmol/L Carbon Dioxide 26 (22-30) mmol/L BUN 18 (9-20) mg/dL Creatinine 1.01 (0.66-1.25) mg/dL Glucose 100 H (74-99) mg/dL Calcium 8.9 (8.4-10.2) mg/dL AST 40 (17-59) U/L ALT 23 (4-49) U/L Alkaline Phosphatase 97 (38-126) U/L Total Protein 7.5 (6.3-8.2) g/dL Albumin 4.4 (3.5-5.0) g/dL Current Medications Generic Name Dose Route Start Last Admin Trade Name Freq PRN Reason Stop Dose Admin Acetaminophen 650 mg 01/07/20 13:47 Acetaminophen Tab 325 Mg Tab PO Q6HR PRN Mild Pain or Fever > 100.5 Calcium Carbonate/Glycine 500 mg 01/07/20 17:30 01/08/20 06:43 Calcium Carbonate Liquid 500 Mg/5 Ml Cup PO 500 mg TID-W/MEALS YURIY Administration Metoprolol Succinate 12.5 mg 01/08/20 13:00 01/08/20 08:53 Metoprolol Succinate (Er) 25 Mg Tab.Er.24h PO 12.5 mg DAILY@1300 [facility] Administration Miscellaneous Information 1 each 01/07/20 16:21 Warfarin Per Pharmacy MISCELLANE DIRECTED PRN Per Protocol Protocol Naloxone HCl 0.2 mg 01/07/20 13:47 Naloxone 0.4 Mg/Ml 1 Ml Vial IV Q2M PRN Opioid Reversal Pantoprazole Sodium 40 mg 01/07/20 17:30 01/08/20 06:43 Pantoprazole 40 Mg Tablet PO 40 mg AC-BID YURIY Administration Paroxetine HCl 20 mg 01/08/20 09:00 01/08/20 08:26 Paroxetine 20 Mg Tab PO 20 mg QAM YURIY Administration Warfarin Sodium 2.5 mg 01/08/20 18:00 Warfarin 2.5 Mg Tab PO 01/08/20 18:01 ONCE ONE Intake and Output 01/07/20 01/08/20 01/08/20 22:59 06:59 14:59 Intake Total 300 120 Output Total 500 Balance 300 -500 120 Intake: Oral 300 120 Output: Urine 500 Other: Voiding Method Toilet Toilet Toilet # Voids 1 Weight 102.058 kg 01/07/20 12:40 01/07/20 12:40 EKG Interpretations (text) EKG shows atrial fibrillation with occasional PVC Assessment and Plan Plan: Assessment and plan #1 chest discomfort with associated nausea and upper abdominal discomfort. Trop onins negative 3. EKG shows atrial fibrillation with controlled ventricular response and occasional PVC. Patient had a Lexiscan stress test performed in October which was negative for any reversible ischemia. #2 persistent atrial fibrillation on Coumadin for anticoagulation, INR 2.0 #3 history of ASD closure several years ago #4 hypertension Plan We will obtain an echocardiogram with Doppler study. We will not repeat a stress test as the patient just recently had one performed in October. Pain is somewhat atypical for acute coronary syndrome. We will review the echo, patient can follow-up with Dr. Pollard in the office. DNP note has been reviewed, I agree with a documented findings and plan of care. Patient was seen and examined.
--- NOTE | 2020-01-08 11:15 | ECHOF ---
Referral Reason:chest pain MEASUREMENTS -------- HEIGHT: 162.6 cm WEIGHT: 102.1 kg BP: RVIDd: 5.1 cm (< 3.3) IVSd: 1.4 cm (0.6 - 1.1) LVIDd: 4.0 cm (3.9 - 5.3) LVPWd: 1.4 cm (0.6 - 1.1) IVSs: 1.9 cm LVIDs: 3.5 cm LVPWs: 1.8 cm LA Diam: 7.4 cm (2.7 - 3.8) LAESV Index (A-L): 128.43 ml/m Ao Diam: 3.0 cm (2.0 - 3.7) AV Cusp: 1.9 cm (1.5 - 2.6) LA Diam: 7.6 cm (2.7 - 3.8) MV EXCURSION: 23.492 mm (> 18.000) MV EF SLOPE: 156 mm/s (70 - 150) EPSS: 0.2 cm RAP: 20.00 mmHg RVSP: 40.72 mmHg TAPSE: 17.18 mm FINDINGS -------- Atrial fibrillation. This was a technically adequate study. The left ventricular size is normal. There is moderate concentric left ventricular hypertrophy. O verall left ventricular systolic function is low-normal with, an EF between 50 - 55 %. Left ventric ular fillimg pressure cannot be estimated due to Atrial fibrillation. The right ventricle is severely enlarged. LA is severely dilated >40 ml/m2 The right atrium is markedly enlarged. Pt had ASD closure possible shunt. The aortic valve is trileaflet, and appears structurally normal. No aortic stenosis or regurgitation. The mitral valve leaflets are mildly thickened. Moderate mitral regurgitation is present. Moderate tricuspid regurgitation present. There is mild pulmonary hypertension. Trace/mild (physiologic) pulmonic regurgitation. The aortic root size is normal. There is no pericardial effusion. CONCLUSIONS -------- 1. There is moderate concentric left ventricular hypertrophy. 2. Overall left ventricular systolic function is low-normal with, an EF between 50 - 55 %. 3. Left ventricular fillimg pressure cannot be estimated due to Atrial fibrillation. 4. The right ventricle is severely enlarged. 5. LA is severely dilated >40 ml/m2 6. The right atrium is markedly enlarged. 7. Pt had ASD closure possible shunt. 8. The aortic valve is trileaflet, and appears structurally normal. No aortic stenosis or regurgitati on. 9. Moderate mitral regurgitation is present. 10. Moderate tricuspid regurgitation present. 11. There is mild pulmonary hypertension. 12. Trace/mild (physiologic) pulmonic regurgitation. 13. The aortic root size is normal. 14. There is no pericardial effusion. [employer]: Carla Mack RDCS
[2020-01-08] MEDS ORDERED: METOPROLOL SUCCINATE (ER) 25 MG TAB.ER.24H PO SCH (13:00)
[2020-01-08] MEDS ORDERED: WARFARIN 2.5 MG TAB PO ONE (18:00)
--- NOTE | 2020-01-08 23:55 | P.DS ---
Providers Date of admission: 01/07/20 13:47 Expected date of discharge: 01/08/20 Attending physician: Kristian Brink Consults: 01/07/20 13:47 Consult Physician Routine Consulting Provider: Jamel Hicks Consult Reason/Comments: CP Do you want consulting provider notified?: Yes Primary care physician: Darian [facility] Course: Chief Complaint: Gripping sensation in the chest History of presenting complaint: This is a very pleasant 79-year-old patient of Dr. Jefferson. Chronic stable medical conditions include atrial fibrillation, hypertension, osteoarthritis, venous insufficiency, OCD. For 3-4 days patient said been noting a sensation of cramping sensation in the mid to lower chest central going to the abdomen. And sometimes a whole bunch of saliva coming out. Symptoms have been progressive. Not related to eating. Heart with activity. He had noticed it is worse if he is lying down. To the point he had to sit up and sleep yesterday. No fever no chills. No cough. Symptoms are not worse with activity. Occasional heartburn. Patient does follow with Dr. Gt Pollard from cardiology. Patient symptoms felt to be from severe reflux. Seen by cardiology. Patient had a negative nuclear stress test in October of this year. Patient started on PPI. Symptoms much improved. Today-sitting up and eating. Symptoms much improved. Cleared for discharge. Blood pressure medicine adjusted. Consultation: Dr. Arias from cardiology. Physical examination: VITAL SIGNS: 97.8, 1866, 18, 151/94, 96% room air GENERAL: Sitting up, comfortable EYES: Pupils equal. Conjunctiva normal. NECK: JVD not raised; masses not palpable. HEART: Heart sounds irregular; no edema. LUNGS: Respiratory rate normal; clear to auscultation. ABDOMEN: Soft, nontender, liver spleen not palpable, no masses palpable. PSYCH: Alert and oriented x3; mood and affect normal. MUSCULAR skeletal: Evidence of OA, INVESTIGATIONS, reviewed in the clinical context: INR 2 Previous testing White count 6.7 hemoglobin 14.8 platelets 135 INR 1.6 potassium 4.4 creatinine 1.01 Troponin I less than 0.0122 proBNP 3930 EKG tracing personally reviewed by me-atrial fibrillation with PVCs, right bundle branch block pattern Chest x-ray film personally reviewed by me-cardiomegaly Assessment: -Possible esophageal spasm, POA -Uncontrolled GERD, POA -Persistent atrial fibrillation -Essential hypertension -Primary osteoarthritis -Chronic venous insufficiency -OCD Disposition: Home Patient Condition at Discharge: Stable Plan - Discharge Summary Discharge Rx Participant: No New Discharge Prescriptions: New Omeprazole [PriLOSEC] 20 mg PO AC-BID #60 cap Lisinopril-Hctz 20-12.5 mg [Zestoretic 20-12.5] 1 tab PO BID #60 tab Continue Nitroglycerin Sl Tabs [Nitrostat] 0.4 mg SUBLINGUAL Q5M PRN PRN Reason: Chest Pain PARoxetine [Paxil] 20 mg PO QAM Metoprolol Succinate (ER) [Toprol XL] 12.5 mg PO DAILY@1300 Warfarin Sodium [Jantoven] 5 mg PO WESA Warfarin Sodium [Jantoven] 2.5 mg PO SUMOTUTHFR Discontinued Furosemide [Lasix] 20 mg PO DAILY Discharge Medication List Nitroglycerin Sl Tabs [Nitrostat] 0.4 mg SUBLINGUAL Q5M PRN 11/26/13 [History] PARoxetine [Paxil] 20 mg PO QAM 11/26/13 [History] Metoprolol Succinate (ER) [Toprol XL] 12.5 mg PO DAILY@1300 10/12/18 [History] Warfarin Sodium [Jantoven] 2.5 mg PO SUMOTUTHFR 01/07/20 [History] Warfarin Sodium [Jantoven] 5 mg PO WESA 01/07/20 [History] Lisinopril-Hctz 20-12.5 mg [Zestoretic 20-12.5] 1 tab PO BID #60 tab 01/08/20 [Rx] Omeprazole [PriLOSEC] 20 mg PO AC-BID #60 cap 01/08/20 [Rx] Follow up Appointment(s)/Referral(s): Gt Pollard MD [STAFF PHYSICIAN] - 01/21/20 8:45 am Darian Jefferson DO [Primary Care Provider] - 1-2 days Discharge Disposition: HOME SELF-CARE
== END 2020-01-08 15:28 | disposition home or self-care (01) ==
LOC: EC 12:02 → 3NCARDOBS 13:47
PROVIDERS: ADMIT Hospitalist; ATTEND Hospitalist
DX: K21.9 Gastro-esophageal reflux disease without esophagitis (principal); I48.19 Other persistent atrial fibrillation; I11.9 Hypertensive heart disease without heart failure; M89.49 Other hypertrophic osteoarthropathy, multiple sites; I87.2 Venous insufficiency (chronic) (peripheral); F42.9 Obsessive-compulsive disorder, unspecified; F41.9 Anxiety disorder, unspecified; I49.3 Ventricular premature depolarization; I45.10 Unspecified right bundle-branch block; G89.29 Other chronic pain; M54.2 Cervicalgia; J98.4 Other disorders of lung; E66.9 Obesity, unspecified; Z79.01 Long term (current) use of anticoagulants; Z79.899 Other long term (current) drug therapy; Z88.1 Allergy status to other antibiotic agents; Z88.8 Allergy status to other drugs, medicaments and biological substances; Z86.010 Personal history of colon polyps; Z90.49 Acquired absence of other specified parts of digestive tract; Z98.890 Other specified postprocedural states; Z87.19 Personal history of other diseases of the digestive system; Z87.74 Personal history of (corrected) congenital malformations of heart and circulatory system; Z87.09 Personal history of other diseases of the respiratory system; Z98.42 Cataract extraction status, left eye; Z96.1 Presence of intraocular lens; Z87.891 Personal history of nicotine dependence; Z98.41 Cataract extraction status, right eye; Z91.89 Other specified personal risk factors, not elsewhere classified; Z68.31 Body mass index [BMI] 31.0-31.9, adult; Z80.1 Family history of malignant neoplasm of trachea, bronchus and lung; Z80.8 Family history of malignant neoplasm of other organs or systems; Z81.2 Family history of tobacco abuse and dependence; Z81.8 Family history of other mental and behavioral disorders
CPT/HCPCS: 96374; 99285; 36415; 93005; 93306; 83880; 80053; 83690; 83735; 84484; 85025; 85610 ×2; 85730; 71046; G0378 ×2; C9113

== ENCOUNTER 2021-01-16 00:06 | Emergency (ER) | payer MEDICARE ==
[2021-01-16 00:17] VITALS: BP 150/97
--- NOTE | 2021-01-16 00:41 | ED ---
Recheck HPI - General Chief Complaint: Recheck/Abnormal Lab/Rx Stated Complaint: Uncontrolled Bleeding Time Seen by Provider: 01/16/21 00:14 Source: patient, EMS, RN notes reviewed, old records reviewed Mode of arrival: EMS Limitations: no limitations - History of Present Illness Initial Comments: This is a 80-year-old male to the emergency department today. Patient presents today for evaluation bleeding. Patient is on anticoagulation. The top aspect of his right foot. Unsure of injury. Patient's taking stockings today had significant bleeding from that area. Not feeling lightheaded dizzy or weak and otherwise has no complaints. Denies trauma MD Complaint: wound re-check, other (Patient here for recheck of bleeding from right foot) -: hour(s) Returns Today for: other (Persistent bleeding) Symptoms Since Prior Visit: no new symptoms Associated Symptoms: none Treatments Prior to Arrival: dressings (Significant pressure dressing applied by EMS) - Related Data Home Medications Medication Instructions Recorded Confirmed Nitroglycerin Sl Tabs [Nitrostat] 0.4 mg SUBLINGUAL Q5M PRN 11/26/13 01/07/20 PARoxetine [Paxil] 20 mg PO QAM 11/26/13 01/07/20 Metoprolol Succinate (ER) [Toprol 12.5 mg PO DAILY@1300 10/12/18 01/07/20 XL] Warfarin Sodium [Jantoven] 2.5 mg PO SUMOTUTHFR 01/07/20 01/07/20 Warfarin Sodium [Jantoven] 5 mg PO WESA 01/07/20 01/07/20 Previous Rx's Medication Instructions Recorded Lisinopril-Hctz 20-12.5 mg 1 tab PO BID #60 tab 01/08/20 [Zestoretic 20-12.5] Omeprazole [PriLOSEC] 20 mg PO AC-BID #60 cap 01/08/20 Allergies Allergy/AdvReac Type Severity Reaction Status Date / Time clindamycin Allergy Rash/Hives/ Verified 01/16/21 00:17 ITCHING MED USED FOR CHEMICAL STRESS Allergy Rash/Hives/ Uncoded 01/16/21 00:17 TEST ITCHING Review of Systems ROS Statement: Those systems with pertinent positive or pertinent negative responses have been documented in the HPI. ROS Other: All systems not noted in ROS Statement are negative. Past Medical History Past Medical History: Atrial Fibrillation, Chest Pain / Angina, GI Bleed, Hypertension, Osteoarthritis (OA), Vascular Disorder Additional Past Medical History / Comment(s): Arthritis in multiple joints, chronic cervical pain, lower GI bleed, hemorrhoids, benign colon polyps, venouse insufficiency/discoloration bilateral ankles/feet, fluid around L lung after heart surgery with chest tube and now that lung has some scarring. History of Any Multi-Drug Resistant Organisms: None Reported Past Surgical History: Cholecystectomy, Heart Catheterization Additional Past Surgical History / Comment(s): 1988 ASD closure, cardiac cath x2, colonoscopies/benign polypectomies, laparotomy with ventral hernia repair/mesh, bilateral eye cataract removals/lens implants then clouded over and has had L eye lasered. Past Anesthesia/Blood Transfusion Reactions: No Reported Reaction Additional Past Anesthesia/Blood Transfusion Reaction / Comment(s): Pt states he was slow to wake after last colonoscopy. Past Psychological History: Anxiety Smoking Status: Former smoker Past Alcohol Use History: None Reported Past Drug Use History: None Reported - Past Family History Father Family Medical History: Cancer Additional Family Medical History / Comment(s): LUNG CA. FATHER WAS A SMOKER. Sister(s) Family Medical History: Cancer Additional Family Medical History / Comment(s): SKIN CA Mother Family Medical History: Dementia General Exam - General Exam Comments Initial Comments: Patient does have puncture wound on top of right foot that is actively exsanguinating Limitations: no limitations General appearance: alert, in no apparent distress Head exam: Present: atraumatic, normocephalic, normal inspection Eye exam: Present: normal appearance, PERRL, EOMI. Absent: scleral icterus, conjunctival injection, periorbital swelling ENT exam: Present: normal exam, mucous membranes moist Neck exam: Present: normal inspection. Absent: tenderness, meningismus, lymphadenopathy Respiratory exam: Present: normal lung sounds bilaterally. Absent: respiratory distress, wheezes, rales, rhonchi, stridor Cardiovascular Exam: Present: regular rate, normal rhythm, normal heart sounds. Absent: systolic murmur, diastolic murmur, rubs, gallop, clicks GI/Abdominal exam: Present: soft, normal bowel sounds. Absent: distended, tenderness, guarding, rebound, rigid Extremities exam: Present: normal inspection, full ROM, normal capillary refill. Absent: tenderness, pedal edema, joint swelling, calf tenderness Back exam: Present: normal inspection Neurological exam: Present: alert, oriented X3, CN II-XII intact Psychiatric exam: Present: normal affect, normal mood Skin exam: Present: warm, dry, intact, normal color. Absent: rash Course Vital Signs 01/16/21 00:08 Temperature 98.4 F Pulse Rate 117 H Respiratory 18 Rate Blood Pressure 150/97 O2 Sat by Pulse 97 Oximetry - Reevaluation(s) Reevaluation #1: 01/16/21 01:03 Medical records reviewed Reevaluation #2: 01/16/21 01:03 Patient has continued hemostasis Procedures - Laceration Laceration #1 Consent Obtained: verbal consent Indication: laceration Site: foot Size (cm): 1 Description: linear Depth: simple, single layer Anesthetic Used: lidocaine 1%, with epi Anesthesia Technique: local infiltration Type of Sutures: nylon Size of Sutures: 4-0 Technique: other ([id number] suture) Patient Tolerated Procedure: well Medical Decision Making - Medical Decision Making 80 male presents with significant bleeding on top of foot. Patient has puncture wound to top of foot. Figure 8 suture is used to repair bleeding, bleeding is stopped. Patient can be discharged home Disposition Clinical Impression: Puncture wound of foot Disposition: HOME SELF-CARE Condition: Good Instructions (If sedation given, give patient instructions): Care For Your Stitches (ED) Is patient prescribed a controlled substance at d/c from ED?: No Referrals: Darian Jefferson DO [Primary Care Provider] - 1-2 days
[2021-01-16] MEDS ORDERED: LIDOCAINE 1% INJ 10MG/ML (20 ML MDV) SQ STA (00:47)
[2021-01-16 01:10] VITALS: PULSE 87; RESP 20; TEMP 97.8
== END 2021-01-16 01:15 | disposition home or self-care (01) ==
LOC: SUPCPDRO 00:06 → EC 00:06
DX: S91.331A Puncture wound without foreign body, right foot, initial encounter (principal); I10 Essential (primary) hypertension; I48.91 Unspecified atrial fibrillation; Z88.1 Allergy status to other antibiotic agents; Z87.891 Personal history of nicotine dependence
CPT/HCPCS: 99283; 12001; J2001

== ENCOUNTER 2021-09-26 10:17 | Emergency (ER) | payer MEDICARE, OTHER ==
[2021-09-26 10:22] VITALS: BP 110/66; PULSE 83; RESP 18; TEMP 98
--- NOTE | 2021-09-26 10:50 | ED ---
Extremity Problem HPI - General Chief complaint: Extremity Problem,Nontraumatic Stated complaint: leg swelling Time Seen by Provider: 09/26/21 10:24 Source: patient, RN notes reviewed Mode of arrival: ambulatory Limitations: no limitations - History of Present Illness Initial comments: 81-year-old male presents emergency Department chief complaint of left leg pain, swelling. Patient states his happened 9 days ago in which she slipped on his tractor causing injury to his left leg from the PTO shaft on a stretcher. Patient states that his tetanus is up-to-date. Patient states her initial bruising, swelling which she's been waxing and waning states is increasing redness denies any. Chills no difficulty and bleeding. Patient states that he is on Xarelto for atrial fibrillation. - Related Data Home Medications Medication Instructions Recorded Confirmed Nitroglycerin Sl Tabs [Nitrostat] 0.4 mg SUBLINGUAL Q5M PRN 11/26/13 01/07/20 PARoxetine [Paxil] 20 mg PO QAM 11/26/13 01/07/20 Metoprolol Succinate (ER) [Toprol 12.5 mg PO DAILY@1300 10/12/18 01/07/20 XL] Warfarin Sodium [Jantoven] 2.5 mg PO SUMOTUTHFR 01/07/20 01/07/20 Warfarin Sodium [Jantoven] 5 mg PO WESA 01/07/20 01/07/20 Previous Rx's Medication Instructions Recorded Lisinopril-Hctz 20-12.5 mg 1 tab PO BID #60 tab 01/08/20 [Zestoretic 20-12.5] Omeprazole [PriLOSEC] 20 mg PO AC-BID #60 cap 01/08/20 Cephalexin [Keflex] 500 mg PO Q6HR #40 cap 09/26/21 Sulfamethox-Tmp 800-160Mg [Bactrim 1 each PO Q12HR #20 tab 09/26/21 Ds] Allergies Allergy/AdvReac Type Severity Reaction Status Date / Time clindamycin Allergy Rash/Hives/ Verified 01/16/21 00:17 ITCHING dipyridamole Allergy Rash/Hives Verified 09/26/21 10:23 [From Persantine] MED USED FOR CHEMICAL STRESS Allergy Rash/Hives/ Uncoded 01/16/21 00:17 TEST ITCHING Review of Systems ROS Statement: Those systems with pertinent positive or pertinent negative responses have been documented in the HPI. ROS Other: All systems not noted in ROS Statement are negative. Past Medical History Past Medical History: Atrial Fibrillation, Chest Pain / Angina, GI Bleed, Hypert ension, Osteoarthritis (OA), Vascular Disorder Additional Past Medical History / Comment(s): Arthritis in multiple joints, chronic cervical pain, lower GI bleed, hemorrhoids, benign colon polyps, venouse insufficiency/discoloration bilateral ankles/feet, fluid around L lung after heart surgery with chest tube and now that lung has some scarring. History of Any Multi-Drug Resistant Organisms: None Reported Past Surgical History: Cholecystectomy, Heart Catheterization Additional Past Surgical History / Comment(s): 1987 ASD closure, cardiac cath x2, colonoscopies/benign polypectomies, laparotomy with ventral hernia repair/mesh, bilateral eye cataract removals/lens implants then clouded over and has had L eye lasered. Past Anesthesia/Blood Transfusion Reactions: No Reported Reaction Additional Past Anesthesia/Blood Transfusion Reaction / Comment(s): Pt states he was slow to wake after last colonoscopy. Past Psychological History: Anxiety Smoking Status: Former smoker Past Alcohol Use History: None Reported Past Drug Use History: None Reported - Past Family History Father Family Medical History: Cancer Additional Family Medical History / Comment(s): LUNG CA. FATHER WAS A SMOKER. Sister(s) Family Medical History: Cancer Additional Family Medical History / Comment(s): SKIN CA Mother Family Medical History: Dementia General Exam Limitations: no limitations General appearance: alert, in no apparent distress Head exam: Present: atraumatic, normocephalic, normal inspection Eye exam: Present: normal appearance, PERRL, EOMI. Absent: scleral icterus, conjunctival injection, periorbital swelling ENT exam: Present: normal exam, normal oropharynx, mucous membranes moist Neck exam: Present: normal inspection, full ROM. Absent: tenderness, meningismus, lymphadenopathy Respiratory exam: Present: normal lung sounds bilaterally. Absent: respiratory distress, wheezes, rales, rhonchi, stridor Cardiovascular Exam: Present: regular rate, normal rhythm, normal heart sounds. Absent: systolic murmur, diastolic murmur, rubs, gallop, clicks Extremities exam: Present: other (Left leg posterior calf there is small wound noted there is surrounding ecchymotic area and erythema there is increase in warmth to palpation, pulse equal bilaterally) Neurological exam: Present: alert Course Vital Signs 09/26/21 10:18 Temperature 98.0 F Pulse Rate 83 Respiratory 18 Rate Blood Pressure 110/66 O2 Sat by Pulse 99 Oximetry Medical Decision Making - Medical Decision Making X-rays negative for acute abnormality including foreign body. Patient was started on oral antibiotics for cellulitis. Patient will be started on Bactrim and Keflex given he has a clindamycin ALLERGY. Disposition Clinical Impression: Left leg cellulitis Disposition: HOME SELF-CARE Condition: Stable Instructions (If sedation given, give patient instructions): Cellulitis (ED) Additional Instructions: Please return to the Emergency Department if symptoms worsen or any other concerns. Prescriptions: Sulfamethox-Tmp 800-160Mg [Bactrim Ds] 1 each PO Q12HR #20 tab Cephalexin [Keflex] 500 mg PO Q6HR #40 cap Is patient prescribed a controlled substance at d/c from ED?: No Referrals: Darian Jefferson DO [Primary Care Provider] - 1-2 days Time of Disposition: 11:34
--- NOTE | 2021-09-26 11:29 | XR ---
EXAMINATION TYPE: XR tibia fibula 2 views LT DATE OF EXAM: 09/26/2021 Comparison: None Clinical History: 81-year-old male pain, swelling Findings: Some generalized soft tissue swelling especially distally. No acute fracture, subluxation, or disloca tion seen. Impression: Soft tissue swelling especially distally. No acute osseous abnormality is seen.
== END 2021-09-26 12:30 | disposition home or self-care (01) ==
LOC: EC 10:17
DX: L03.116 Cellulitis of left lower limb (principal); I10 Essential (primary) hypertension; Z87.891 Personal history of nicotine dependence; Z88.1 Allergy status to other antibiotic agents; Z88.8 Allergy status to other drugs, medicaments and biological substances; Z91.09 Other allergy status, other than to drugs and biological substances
CPT/HCPCS: 99283

== ENCOUNTER 2021-11-23 21:34 | Emergency (ER) | payer MEDICARE, OTHER ==
[2021-11-23 21:43] VITALS: BP 118/64; PULSE 77; RESP 15; TEMP 98.3
[2021-11-23] MEDS ORDERED: SILVER NITRATE APPLICATOR 1 EACH STICK..EA. TOPICAL STA (21:57)
[2021-11-23] MEDS ORDERED: LIDOCAINE 1%-EPI 1:100,000 20 ML VIAL SQ STA (22:00)
--- NOTE | 2021-11-23 23:23 | ED ---
Lower Extremity Injury HPI - General Chief Complaint: Extremity Injury, Lower Stated Complaint: Right extremity problem Time Seen by Provider: 11/23/21 21:47 Source: EMS Mode of arrival: EMS - History of Present Illness Initial Comments: Patient is an 81-year-old male presenting with chief complaint of bleeding varicose vein to the right lower leg. Patient initially sustained an injury a few weeks ago when he scratched his leg on his corduroy slippers. Patient was showering today when the scab to his injury came off and was bleeding profusely. Patient was brought to the ER by EMS, wound was treated with pressure dressing. Patient denies any numbness, tingling, weakness, lightheadedness, dizziness, chest pain, shortness of breath, extremity pain, redness, swelling, discharge, warmth. - Related Data Home Medications Medication Instructions Recorded Confirmed Nitroglycerin Sl Tabs [Nitrostat] 0.4 mg SUBLINGUAL Q5M PRN 11/26/13 01/07/20 PARoxetine [Paxil] 20 mg PO QAM 11/26/13 01/07/20 Metoprolol Succinate (ER) [Toprol 12.5 mg PO DAILY@1300 10/12/18 01/07/20 XL] Warfarin Sodium [Jantoven] 2.5 mg PO SUMOTUTHFR 01/07/20 01/07/20 Warfarin Sodium [Jantoven] 5 mg PO WESA 01/07/20 01/07/20 Previous Rx's Medication Instructions Recorded Lisinopril-Hctz 20-12.5 mg 1 tab PO BID #60 tab 01/08/20 [Zestoretic 20-12.5] Omeprazole [PriLOSEC] 20 mg PO AC-BID #60 cap 01/08/20 Cephalexin [Keflex] 500 mg PO Q6HR #40 cap 09/26/21 Sulfamethox-Tmp 800-160Mg [Bactrim 1 each PO Q12HR #20 tab 09/26/21 Ds] Allergies Allergy/AdvReac Type Severity Reaction Status Date / Time clindamycin Allergy Rash/Hives/ Verified 01/16/21 00:17 ITCHING dipyridamole Allergy Rash/Hives Verified 09/26/21 10:23 [From Persantine] MED USED FOR CHEMICAL STRESS Allergy Rash/Hives/ Uncoded 01/16/21 00:17 TEST ITCHING Review of Systems ROS Statement: Those systems with pertinent positive or pertinent negative responses have been documented in the HPI. ROS Other: All systems not noted in ROS Statement are negative. Past Medical History Past Medical History: Atrial Fibrillation, Chest Pain / Angina, GI Bleed, Hypertension, Osteoarthritis (OA), Vascular Disorder Additional Past Medical History / Comment(s): Arthritis in multiple joints, chronic cervical pain, lower GI bleed, hemorrhoids, benign colon polyps, venouse insufficiency/discoloration bilateral ankles/feet, fluid around L lung after heart surgery with chest tube and now that lung has some scarring. History of Any Multi-Drug Resistant Organisms: None Reported Past Surgical History: Cholecystectomy, Heart Catheterization Additional Past Surgical History / Comment(s): 1987 ASD closure, cardiac cath x2, colonoscopies/benign polypectomies, laparotomy with ventral hernia repair/mesh, bilateral eye cataract removals/lens implants then clouded over and has had L eye lasered. Past Anesthesia/Blood Transfusion Reactions: No Reported Reaction Additional Past Anesthesia/Blood Transfusion Reaction / Comment(s): Pt states he was slow to wake after last colonoscopy. Past Psychological History: Anxiety Smoking Status: Former smoker Past Alcohol Use History: None Reported Past Drug Use History: None Reported - Past Family History Father Family Medical History: Cancer Additional Family Medical History / Comment(s): LUNG CA. FATHER WAS A SMOKER. Sister(s) Family Medical History: Cancer Additional Family Medical History / Comment(s): SKIN CA Mother Family Medical History: Dementia General Exam Limitations: no limitations General appearance: alert, in no apparent distress Head exam: Present: atraumatic, normocephalic, normal inspection Eye exam: Present: normal appearance, EOMI. Absent: scleral icterus, periorbital swelling Neck exam: Present: normal inspection Right Lower Leg exam: Present: full ROM, abrasion (Abrasion over varicose vein on right lower leg, this is continuously bleeding.). Absent: tenderness Neurovascular tendon exam: Absent: motor deficit, sensory deficit Neurological exam: Present: alert, oriented X3, CN II-XII intact Psychiatric exam: Present: normal affect, normal mood Skin exam: Present: warm, dry, normal color, abrasion (Right lower leg over varicose vein, this is continuously bleeding). Absent: rash Course Vital Signs 11/23/21 21:39 Temperature 98.3 F Pulse Rate 77 Respiratory 15 Rate Blood Pressure 118/64 O2 Sat by Pulse 99 Oximetry Medical Decision Making - Medical Decision Making Patient is an 81-year-old male presenting with chief complaint of bleeding varicose vein to the right lower leg. Patient had a scab over this area which fell off in the shower today. Patient called EMS and pressure dressing was applied to the wound. On examination there is a small wound over varicose vein on the right lower leg, this is continuing to bleed even after pressure dressing was applied.. Was injected with lidocaine 2% with epi and cauterized using silver nitrate sticks. Patient was observed and ambulated to ensure the wound was properly treated. Bleeding did not resume here in the ER. Follow-up with PCP. Report back to ER with any new or worsening symptoms. Discussed return parameters and answered all questions. Patient conveyed verbal understanding and agreed to the plan. I discussed this case with my attending Dr. Beltran. Disposition Clinical Impression: Bleeding from varicose vein Disposition: HOME SELF-CARE Condition: Good Instructions (If sedation given, give patient instructions): Venous Insufficiency (DC) Additional Instructions: Follow-up with PCP. Report back to ER with any new or worsening symptoms. Is patient prescribed a controlled substance at d/c from ED?: No Referrals: Darian Jefferson DO [Primary Care Provider] - 1-2 days Time of Disposition: 23:22
== END 2021-11-23 23:38 | disposition home or self-care (01) ==
LOC: EC 21:34
DX: I83.891 Varicose veins of right lower extremity with other complications (principal); I48.91 Unspecified atrial fibrillation; I10 Essential (primary) hypertension; Z87.891 Personal history of nicotine dependence; Z79.01 Long term (current) use of anticoagulants; Z79.899 Other long term (current) drug therapy; Z88.1 Allergy status to other antibiotic agents; Z88.5 Allergy status to narcotic agent
CPT/HCPCS: 99283; 99284

== ENCOUNTER 2022-01-01 15:16 | Inpatient (IN) | payer MEDICARE, OTHER ==
[2022-01-01] MEDS ORDERED: FUROSEMIDE 10 MG/ML 4 ML VIAL IV STA (15:41)
--- NOTE | 2022-01-01 15:51 | ED ---
General Adult HPI - General Chief complaint: Shortness of Breath Stated complaint: JASON Time Seen by Provider: 01/01/22 15:30 Source: patient, RN notes reviewed, old records reviewed Mode of arrival: EMS Limitations: no limitations - History of Present Illness Initial comments: This is an 81-year-old male who presents emergency Department complaining of difficulty breathing over the last 3 days. Patient states it seems to be getting worse slowly. Patient states she's also noticing more edema in the legs a little bit of fluid leaking out of the right lower leg. Patient denies any fever chills or cough. Patient denies any chest pain or palpitations. Patient denies lightheadedness or dizziness. Patient states he has had no abdominal pain denies nausea vomiting diarrhea. - Related Data Home Medications Medication Instructions Recorded Confirmed PARoxetine [Paxil] 20 mg PO DAILY 11/26/13 01/01/22 Furosemide [Lasix] 20 mg PO DAILY 01/01/22 01/01/22 Rivaroxaban [Xarelto] 20 mg PO DAILY@1700 01/01/22 01/01/22 Allergies Allergy/AdvReac Type Severity Reaction Status Date / Time clindamycin Allergy Rash/Hives/ Verified 01/01/22 16:33 ITCHING dipyridamole Allergy Rash/Hives Verified 01/01/22 16:33 [From Persantine] MED USED FOR CHEMICAL STRESS Allergy Rash/Hives/ Uncoded 01/01/22 16:33 TEST ITCHING Review of Systems ROS Statement: Those systems with pertinent positive or pertinent negative responses have been documented in the HPI. ROS Other: All systems not noted in ROS Statement are negative. Past Medical History Past Medical History: Atrial Fibrillation, Chest Pain / Angina, GI Bleed, Hypertension, Osteoarthritis (OA), Vascular Disorder Additional Past Medical History / Comment(s): Arthritis in multiple joints, chronic cervical pain, lower GI bleed, hemorrhoids, benign colon polyps, venouse insufficiency/discoloration bilateral ankles/feet, fluid around L lung after heart surgery with chest tube and now that lung has some scarring. History of Any Multi-Drug Resistant Organisms: None Reported Past Surgical History: Cholecystectomy, Heart Catheterization Additional Past Surgical History / Comment(s): 1987 ASD closure, cardiac cath x2, colonoscopies/benign polypectomies, laparotomy with ventral hernia repair/mesh, bilateral eye cataract removals/lens implants then clouded over and has had L eye lasered. Past Anesthesia/Blood Transfusion Reactions: No Reported Reaction Additional Past Anesthesia/Blood Transfusion Reaction / Comment(s): Pt states he was slow to wake after last colonoscopy. Past Psychological History: Anxiety Smoking Status: Former smoker Past Alcohol Use History: None Reported Past Drug Use History: None Reported - Past Family History Father Family Medical History: Cancer Additional Family Medical History / Comment(s): LUNG CA. FATHER WAS A SMOKER. Sister(s) Family Medical History: Cancer Additional Family Medical History / Comment(s): SKIN CA Mother Family Medical History: Dementia General Exam - General Exam Comments Initial Comments: GENERAL: Patient is well-developed and well-nourished. Patient is nontoxic and well- hydrated and is in mild distress. ENT: Neck is soft and supple. No significant lymphadenopathy is noted. Oropharynx is clear. Moist mucous membranes. Neck has full range of motion without eliciting any pain. EYES: The sclera were anicteric and conjunctiva were pink and moist. Extraocular movements were intact and pupils were equal round and reactive to light. Eye lids were unremarkable. PULMONARY: Unlabored respirations. Good breath sounds bilaterally. No audible rales rhonchi or wheezing was noted. CARDIOVASCULAR: There is a regular rate and rhythm without any murmurs gallops or rubs. ABDOMEN: Soft and nontender with normal bowel sounds. No palpable organomegaly was noted. There is no palpable pulsatile mass. SKIN: Skin is clear with no lesions or rashes and otherwise unremarkable. NEUROLOGIC: Patient is alert and oriented x3. Cranial nerves II through XII are grossly intact. Motor and sensory are also intact. Normal speech, volume and content. Symmetrical smile. MUSCULOSKELETAL: Normal extremities with adequate strength and full range of motion. 2+ edema bilaterally LYMPHATICS: No significant lymphadenopathy is noted PSYCHIATRIC: Normal psychiatric evaluation. Limitations: no limitations Course Vital Signs 01/01/22 15:18 Temperature 98.4 F Pulse Rate 91 Respiratory 18 Rate Blood Pressure 113/83 O2 Sat by Pulse 98 Oximetry Medical Decision Making - Medical Decision Making EKG shows atrial fibrillation at 82 bpm QRS is 131 Q-T intervals 439 QTC is 477. Patient has a right bundle branch block. V6 has quite a bit of noise in it. Chest x-ray shows pulmonary edema Patient's hemoglobin was low so I ordered a type and screen and continue doing CBCs. I spoke with [facility] they agreed to admit the patient admitted the patient - Lab Data Result diagrams: 01/01/22 16:03 01/01/22 16:03 Lab Results 01/01/22 01/01/22 01/01/22 Range/Units 16:03 16:03 16:03 WBC 4.5 (3.8-10.6) k/uL RBC 3.22 L (4.30-5.90) m/uL Hgb 7.6 L (13.0-17.5) gm/dL Hct 25.8 L (39.0-53.0) % MCV 80.2 (80.0-100.0) fL MCH 23.6 L (25.0-35.0) pg MCHC 29.4 L (31.0-37.0) g/dL RDW 15.8 H (11.5-15.5) % Plt Count 179 (150-450) k/uL MPV 10.3 Neutrophils % (Manual) 87 % Lymphocytes % (Manual) 8 % Monocytes % (Manual) 5 % Neutrophils # (Manual) 3.92 (1.3-7.7) k/uL Lymphocytes # (Manual) 0.36 L (1.0-4.8) k/uL Monocytes # (Manual) 0.23 (0-1.0) k/uL Nucleated RBCs 0 (0-0) /100 WBC Manual Slide Review Performed Hypochromasia Marked Poikilocytosis Moderate PT 14.2 H (9.0-12.0) sec INR 1.4 H (<1.2) APTT 33.2 H (22.0-30.0) sec Sodium 139 (137-145) mmol/L Potassium 4.8 (3.5-5.1) mmol/L Chloride 104 (98-107) mmol/L Carbon Dioxide 22 (22-30) mmol/L Anion Gap 13 mmol/L BUN 32 H (9-20) mg/dL Creatinine 1.32 H (0.66-1.25) mg/dL Est GFR (CKD-EPI)AfAm 58 (>60 ml/min/1.73 sqM) Est GFR (CKD-EPI)NonAf 50 (>60 ml/min/1.73 sqM) Glucose 99 (74-99) mg/dL Plasma Lactic Acid Polo (0.7-2.0) mmol/L Calcium 8.6 (8.4-10.2) mg/dL Magnesium 2.3 (1.6-2.3) mg/dL Total Bilirubin 1.2 (0.2-1.3) mg/dL AST 24 (17-59) U/L ALT 14 (4-49) U/L Alkaline Phosphatase 92 (38-126) U/L Troponin I (0.000-0.034) ng/mL NT-Pro-B Natriuret Pep pg/mL Total Protein 6.5 (6.3-8.2) g/dL Albumin 4.0 (3.5-5.0) g/dL Coronavirus (PCR) (Not Detectd) 01/01/22 01/01/22 01/01/22 Range/Units 16:03 16:03 16:03 WBC (3.8-10.6) k/uL RBC (4.30-5.90) m/uL Hgb (13.0-17.5) gm/dL Hct (39.0-53.0) % MCV (80.0-100.0) fL MCH (25.0-35.0) pg MCHC (31.0-37.0) g/dL RDW (11.5-15.5) % Plt Count (150-450) k/uL MPV Neutrophils % (Manual) % Lymphocytes % (Manual) % Monocytes % (Manual) % Neutrophils # (Manual) (1.3-7.7) k/uL Lymphocytes # (Manual) (1.0-4.8) k/uL Monocytes # (Manual) (0-1.0) k/uL Nucleated RBCs (0-0) /100 WBC Manual Slide Review Hypochromasia Poikilocytosis PT (9.0-12.0) sec INR (<1.2) APTT (22.0-30.0) sec Sodium (137-145) mmol/L Potassium (3.5-5.1) mmol/L Chloride (98-107) mmol/L Carbon Dioxide (22-30) mmol/L Anion Gap mmol/L BUN (9-20) mg/dL Creatinine (0.66-1.25) mg/dL Est GFR (CKD-EPI)AfAm (>60 ml/min/1.73 sqM) Est GFR (CKD-EPI)NonAf (>60 ml/min/1.73 sqM) Glucose (74-99) mg/dL Plasma Lactic Acid Polo 1.0 (0.7-2.0) mmol/L Calcium (8.4-10.2) mg/dL Magnesium (1.6-2.3) mg/dL Total Bilirubin (0.2-1.3) mg/dL AST (17-59) U/L ALT (4-49) U/L Alkaline Phosphatase (38-126) U/L Troponin I <0.012 (0.000-0.034) ng/mL NT-Pro-B Natriuret Pep 3140 pg/mL Total Protein (6.3-8.2) g/dL Albumin (3.5-5.0) g/dL Coronavirus (PCR) (Not Detectd) 01/01/22 Range/Units 16:03 WBC (3.8-10.6) k/uL RBC (4.30-5.90) m/uL Hgb (13.0-17.5) gm/dL Hct (39.0-53.0) % MCV (80.0-100.0) fL MCH (25.0-35.0) pg MCHC (31.0-37.0) g/dL RDW (11.5-15.5) % Plt Count (150-450) k/uL MPV Neutrophils % (Manual) % Lymphocytes % (Manual) % Monocytes % (Manual) % Neutrophils # (Manual) (1.3-7.7) k/uL Lymphocytes # (Manual) (1.0-4.8) k/uL Monocytes # (Manual) (0-1.0) k/uL Nucleated RBCs (0-0) /100 WBC Manual Slide Review Hypochromasia Poikilocytosis PT (9.0-12.0) sec INR (<1.2) APTT (22.0-30.0) sec Sodium (137-145) mmol/L Potassium (3.5-5.1) mmol/L Chloride (98-107) mmol/L Carbon Dioxide (22-30) mmol/L Anion Gap mmol/L BUN (9-20) mg/dL Creatinine (0.66-1.25) mg/dL Est GFR (CKD-EPI)AfAm (>60 ml/min/1.73 sqM) Est GFR (CKD-EPI)NonAf (>60 ml/min/1.73 sqM) Glucose (74-99) mg/dL Plasma Lactic Acid Polo (0.7-2.0) mmol/L Calcium (8.4-10.2) mg/dL Magnesium (1.6-2.3) mg/dL Total Bilirubin (0.2-1.3) mg/dL AST (17-59) U/L ALT (4-49) U/L Alkaline Phosphatase (38-126) U/L Troponin I (0.000-0.034) ng/mL NT-Pro-B Natriuret Pep pg/mL Total Protein (6.3-8.2) g/dL Albumin (3.5-5.0) g/dL Coronavirus (PCR) Not Detected (Not Detectd) Disposition Clinical Impression: Acute pulmonary edema, Anemia Disposition: ADMITTED IP TO THIS HOSP Referrals: Darian Jefferson DO [Primary Care Provider] - 1-2 days Time of Disposition: 17:23
[2022-01-01 16:18] LABS: HCT 25.8 % (39.0-53.0); HGB 7.6 gm/dL (13.0-17.5); Hypochromasia Marked; MCH 23.6 pg (25.0-35.0); MCHC 29.4 g/dL (31.0-37.0); MCV 80.2 fL (80.0-100.0); Mean Platelet Volume 10.3; Platelet Count 179 k/uL (150-450); Poikilocytosis Moderate; RBC 3.22 m/uL (4.30-5.90); RDW 15.8 % (11.5-15.5); WBC 4.5 k/uL (3.8-10.6)
[2022-01-01 16:25] LABS: Calcium 8.6 mg/dL (8.4-10.2); Magnesium 2.3 mg/dL (1.6-2.3); Potassium 4.8 mmol/L (3.5-5.1); Total Bilirubin 1.2 mg/dL (0.2-1.3); Total Protein 6.5 g/dL (6.3-8.2)
[2022-01-01 16:30] LABS: INR 1.4 (<1.2); Partial Thromboplastin Time 33.2 sec (22.0-30.0); Prothrombin Time 14.2 sec (9.0-12.0)
[2022-01-01 16:39] LABS: Lymphocytes # (M) 0.36 k/uL (1.0-4.8); Monocytes # (M) 0.23 k/uL (0-1.0); Neutrophils # (M) 3.92 k/uL (1.3-7.7); Neutrophils % (M) 87 %; Nucleated Red Blood Cells 0 /100 WBC (0-0); Total Cells Counted 100
--- NOTE | 2022-01-01 16:39 | XR ---
EXAMINATION TYPE: XR chest 2V DATE OF EXAM: 01/01/2022 COMPARISON: 01/07/2020 INDICATION: Difficulty breathing, short of breath TECHNIQUE: Frontal and lateral views of the chest are obtained. FINDINGS: The heart size is large. The pulmonary vasculature is normal. Some mild infiltrate may be at the right base. Correlate for atelectasis. Pneumonia can be considered .. Sternotomy wires are in the midline. IMPRESSION: 1. Moderate cardiomegaly. 2. Atelectasis or pneumonia right lung base.
[2022-01-01 18:27] LABS: HCT 27.1 % (39.0-53.0); HGB 7.8 gm/dL (13.0-17.5); Hypochromasia Marked; MCH 23.7 pg (25.0-35.0); MCHC 28.9 g/dL (31.0-37.0); MCV 81.9 fL (80.0-100.0); Mean Platelet Volume 11.4; Platelet Count 201 k/uL (150-450); Poikilocytosis Moderate; RBC 3.31 m/uL (4.30-5.90); RDW 15.8 % (11.5-15.5); WBC 4.1 k/uL (3.8-10.6)
[2022-01-01] MEDS: FUROSEMIDE 10 MG/ML 2 ML VIAL IV SCH (19:01)
[2022-01-01] MEDS: NITROGLYCERIN OINT 1 INCH/GM PACKET TOPICAL SCH (19:01)
[2022-01-01 23:38] LABS: HCT 25.5 % (39.0-53.0); Hypochromasia Marked; MCHC 31.5 g/dL (31.0-37.0); MCV 82.7 fL (80.0-100.0); Mean Platelet Volume 11.7; Platelet Count 163 k/uL (150-450); Poikilocytosis Moderate; RBC 3.08 m/uL (4.30-5.90); RDW 15.7 % (11.5-15.5); WBC 4.6 k/uL (3.8-10.6)
[2022-01-02] MEDS: NITROGLYCERIN OINT 1 INCH/GM PACKET TOPICAL SCH ×2 (00:59→10:04)
[2022-01-02] MEDS: FUROSEMIDE 10 MG/ML 2 ML VIAL IV SCH ×3 (02:49→17:57)
[2022-01-02 09:18] LABS: Calcium 8.3 mg/dL (8.4-10.2); Potassium 3.8 mmol/L (3.5-5.1)
[2022-01-02] MEDS: RIVAROXABAN 20 MG TAB PO SCH (09:54)
[2022-01-02] MEDS: LOSARTAN 25 MG TAB PO SCH (09:54)
--- NOTE | 2022-01-02 11:59 | P.CRDCN ---
History of Present Illness History of present illness: HISTORY OF PRESENTING ILLNESS This is a pleasant 81-year-old male past medical history significant for atrial septal defect status post closure, congestive heart failure with preserved ejection fraction, persistent atrial fibrillation, valvular heart disease with severe mitral regurgitation, sick sinus syndrome, hypertension. He follows in the office with Dr. Pollard. We have been asked to see in consultation for congestive heart failure. Patient presents emergency department with worsening shortness of breath, right lower extremity edema, symptoms of orthopnea and PND. He states that he initially went to a walk-in clinic and was also worried about her right shoulder rash and due to his symptoms it was recommended patient presents emergency department. He was started on IV Lasix. He denies any chest pain, palpitations, lightheadedness, dizziness, syncope or near syncope. No known history of coronary artery disease, stroke, or seizure. Patient recently taken off Losartan secondary to hypotension. DIAGNOSTICS * EKG reveals atrial fibrillation, heart rate 82, right bundle-branch block * Telemetry tracings indicate atrial fibrillation with controlled ventricular rates * Chest xray moderate cardiomegaly * Laboratory reviewed, troponin negative, proBNP 3140, sodium 140, potassium 3.8, BUN 30, serum creatinine 1.3, magnesium 2.3, WBC 4.6, hemoglobin 8.0, platelets 163 * Cardiolite stress test in the office 08/2021 revealed no evidence of reversible ischemia * Echocardiogram 08/2021 revealed EF 50%, mild left ventricular hypertrophy, severe biatrial enlargement, PFO/ASD device, severe mitral regurgitation, 2 antral tricuspid regurgitation, RVSP of 51 mmHg * Current home cardiac medications include Lasix 20 mg daily, Xarelto 20 mg daily REVIEW OF SYSTEMS At the time of my exam: CONSTITUTIONAL: Denies fever or chills. CARDIOVASCULAR: Denies chest pain, +shortness of breath,+ orthopnea, +PND Denies palpitations. RESPIRATORY: Denies cough. GASTROINTESTINAL: Denies abdominal pain, diarrhea, constipation, nausea or vomiting. MUSCULOSKELETAL: Denies myalgias. NEUROLOGIC: Denies numbness, tingling, headacbe or weakness. ENDOCRINE: Denies fatigue, weight change, polydipsia or polyurina. GENITOURINARY: Denies burning, hematuria or urgency with micturation. HEMATOLOGIC: +history of anemia, denies bleeding. PHYSICAL EXAMINATION Blood pressure 101/76, heart rate 86, afebrile, saturations 98% room air CONSTITUTIONAL: No apparent distress. HEENT: Head is normocephalic. Pupils are equal, round. Sclerae anicteric. Mucous membranes of the mouth are moist. No JVD. No carotid bruit. CHEST EXAMINATION: Lungs mild crackles in the bases to auscultation. No chest wa ll tenderness is noted on palpation or with deep breathing. HEART EXAMINATION: Irregular rate and rhythm. S1, S2 heard. Systolic murmur at apex. No gallops or rub. ABDOMEN: Soft, nontender. Positive bowel sounds. EXTREMITIES: 2+ peripheral pulses, 2+ bilateral with R > L lower extremity edema and no calf tenderness. NEUROLOGIC EXAMINATION: Patient is awake, alert and oriented x3. ASSESSMENT Acute on chronic heart failure with preserved ejection fraction Severe mitral regurgitation Pulmonary hypertension History of atrial septal defect status post closure Persistent atrial fibrillation on Xarelto History of sick sinus syndrome History of hypertension PLAN No need for repeat Echo with recent outpatient in 08/2021 Continue IV Lasix Monitor I/Os daily weights, renal function an electrolytes Start low dose Losartan Continue anticoagulation with Xarelto Consider MARYANN to evaluate mitral regurgitation, inpatient vs outpatient Further recommendations based on clinical course Nurse practitioner note has been reviewed by physician. Signing provider agrees with the documented findings, assessment, and plan of care. Past Medical History Past Medical History: Atrial Fibrillation, Chest Pain / Angina, GI Bleed, Hypertension, Osteoarthritis (OA), Vascular Disorder Additional Past Medical History / Comment(s): Arthritis in multiple joints, chronic cervical pain, lower GI bleed, hemorrhoids, benign colon polyps, venouse insufficiency/discoloration bilateral ankles/feet, fluid around L lung after heart surgery with chest tube and now that lung has some scarring. History of Any Multi-Drug Resistant Organisms: None Reported Past Surgical History: Cholecystectomy, Heart Catheterization Additional Past Surgical History / Comment(s): 1988 ASD closure, cardiac cath x2, colonoscopies/benign polypectomies, laparotomy with ventral hernia repair/me sh, bilateral eye cataract removals/lens implants then clouded over and has had L eye lasered. Past Anesthesia/Blood Transfusion Reactions: No Reported Reaction Additional Past Anesthesia/Blood Transfusion Reaction / Comment(s): Pt states he was slow to wake after last colonoscopy. Past Psychological History: Anxiety Smoking Status: Former smoker Past Alcohol Use History: None Reported Past Drug Use History: None Reported - Past Family History Father Family Medical History: Cancer Additional Family Medical History / Comment(s): LUNG CA. FATHER WAS A SMOKER. Sister(s) Family Medical History: Cancer Additional Family Medical History / Comment(s): SKIN CA Mother Family Medical History: Dementia Medications and Allergies Home Medications Medication Instructions Recorded Confirmed Type PARoxetine [Paxil] 20 mg PO DAILY 11/26/13 01/01/22 History Furosemide [Lasix] 20 mg PO DAILY 01/01/22 01/01/22 History Rivaroxaban [Xarelto] 20 mg PO DAILY@1700 01/01/22 01/01/22 History Allergies Allergy/AdvReac Type Severity Reaction Status Date / Time clindamycin Allergy Rash/Hives/ Verified 01/01/22 16:33 ITCHING dipyridamole Allergy Rash/Hives Verified 01/01/22 16:33 [From Persantine] MED USED FOR CHEMICAL STRESS Allergy Rash/Hives/ Uncoded 01/01/22 16:33 TEST ITCHING Physical Exam Vitals: Vital Signs Temp Pulse Resp BP Pulse Ox 01/02/22 06:19 94/57 01/02/22 02:52 76 15 95/70 98 01/01/22 20:30 89 16 112/81 96 01/01/22 19:01 69 16 112/71 96 01/01/22 17:30 84 18 139/74 97 01/01/22 15:18 98.4 F 91 18 113/83 98 Intake and Output 01/01/22 01/02/22 01/02/22 22:59 06:59 14:59 Output Total 2400 1900 Balance -2400 -1900 Output: Urine 2400 800 Urine/Stool Mix 1100 Other: Weight 81.647 kg Results 01/01/22 23:16 01/02/22 08:38 Cardiac Enzymes 01/01/22 01/01/22 Range/Units 16:03 16:03 AST 24 (17-59) U/L Troponin I <0.012 (0.000-0.034) ng/mL Coagulation 01/01/22 Range/Units 16:03 PT 14.2 H (9.0-12.0) sec APTT 33.2 H (22.0-30.0) sec CBC 01/01/22 01/01/22 01/01/22 Range/Units 16:03 17:58 23:16 WBC 4.5 4.1 4.6 (3.8-10.6) k/uL RBC 3.22 L 3.31 L 3.08 L (4.30-5.90) m/uL Hgb 7.6 L 7.8 L 8.0 L (13.0-17.5) gm/dL Hct 25.8 L 27.1 L 25.5 L (39.0-53.0) % Plt Count 179 201 163 (150-450) k/uL Comprehensive Metabolic Panel 01/01/22 Range/Units 16:03 Sodium 139 (137-145) mmol/L Potassium 4.8 (3.5-5.1) mmol/L Chloride 104 (98-107) mmol/L Carbon Dioxide 22 (22-30) mmol/L BUN 32 H (9-20) mg/dL Creatinine 1.32 H (0.66-1.25) mg/dL Glucose 99 (74-99) mg/dL Calcium 8.6 (8.4-10.2) mg/dL AST 24 (17-59) U/L ALT 14 (4-49) U/L Alkaline Phosphatase 92 (38-126) U/L Total Protein 6.5 (6.3-8.2) g/dL Albumin 4.0 (3.5-5.0) g/dL Current Medications Generic Name Dose Route Start Last Admin Trade Name Freq PRN Reason Stop Dose Admin Furosemide 20 mg 01/01/22 18:00 01/02/22 02:49 Furosemide 10 Mg/Ml 2 Ml Vial IV 20 mg Q8H [facility] Administration Nitroglycerin 1 inch 01/01/22 18:00 01/02/22 00:59 Nitroglycerin Oint 1 Inch/Gm Packet TOPICAL 1 inch QID YURIY Administration Intake and Output 01/01/22 01/02/22 01/02/22 22:59 06:59 14:59 Output Total 2400 1900 Balance -2400 -1900 Output: Urine 2400 800 Urine/Stool Mix 1100 Other: Weight 81.647 kg 01/01/22 23:16 01/01/22 16:03
[2022-01-02 15:04] LABS: % Iron Saturation 2.81 (15.00-50.00); Iron 12 ug/dL (65-175); LDL Cholesterol,Calculated 40.8 mg/dL (0.0-131.0); Total Iron Binding Capacity 441 ug/dL (228-460); VLDL Calculation 10.94 mg/dL (5.00-40.00)
--- NOTE | 2022-01-02 22:29 | P.HPIM ---
History of Present Illness H&P Date: 01/02/22 Chief Complaint: Shortness of breath Patient is a 81-year-old male with a known history of atrial fibrillation on anticoagulation, hypertension, chronic bilateral venous insufficiency of the lower extremities, history of ASD closure in 1987 and other medical medical problems including prior history of smoking presents to ER with complaints of worsening shortness of breath for the past 3 days and also right foot weeping serous fluid. Patient otherwise denied any complaints of chest pain. No nausea vomiting or abdominal pain or diarrhea. Denied any recent illnesses. No cough or sputum production. No fever no chills. Chest x-ray showed moderate cardiomegaly. Atelectasis or pneumonia right lung base. EKG showed atrial fibrillation with heart rate 82 Laboratory data showed WBC 4.4 hemoglobin 7.6 and platelets 179 INR 1.4 Sodium 139 potassium 4.8 chloride 104 bicarb is 22 BUN 32 and creatinine 1.3 proBNP 3140 and troponin x1 negative and liver enzymes are not elevated Coronavirus PCR not detected. Review of Systems Constitutional: Patient denies any fever or chills . no Generalized weakness. Abdomen: Patient denied any nausea or vomiting or abd. pain Cardiovascular: Patient denies any chest pain patient does have shortness of breath and worsening leg swelling. No palpitations. Respiratory: patient denied any cough . no sputum production. No shortness of breath Neurologic: Patient denied any numbness or tingling headache. Musculoskeletal: Patient denies any complaints of joint swelling or deformity. Skin: Negative Psychiatric: Negative Endocrine: No heat or cold intolerance. No recent weight gain. Genitourinary: No dysuria or hematuria. All other 14 point ROS negative except the above Past Medical History Past Medical History: Atrial Fibrillation, Chest Pain / Angina, GI Bleed, Hypertension, Osteoarthritis (OA), Vascular Disorder Additional Past Medical History / Comment(s): Arthritis in multiple joints, chronic cervical pain, lower GI bleed, hemorrhoids, benign colon polyps, venouse insufficiency/discoloration bilateral ankles/feet, fluid around L lung after heart surgery with chest tube and now that lung has some scarring. History of Any Multi-Drug Resistant Organisms: None Reported Past Surgical History: Cholecystectomy, Heart Catheterization Additional Past Surgical History / Comment(s): 1988 ASD closure, cardiac cath x2, colonoscopies/benign polypectomies, laparotomy with ventral hernia repair/mesh, bilateral eye cataract removals/lens implants then clouded over and has had L eye lasered. Past Anesthesia/Blood Transfusion Reactions: No Reported Reaction Additional Past Anesthesia/Blood Transfusion Reaction / Comment(s): Pt states he was slow to wake after last colonoscopy. Past Psychological History: Anxiety Smoking Status: Former smoker Past Alcohol Use History: None Reported Past Drug Use History: None Reported - Past Family History Father Family Medical History: Cancer Additional Family Medical History / Comment(s): LUNG CA. FATHER WAS A SMOKER. Sister(s) Family Medical History: Cancer Additional Family Medical History / Comment(s): SKIN CA Mother Family Medical History: Dementia Medications and Allergies Home Medications Medication Instructions Recorded Confirmed Type PARoxetine [Paxil] 20 mg PO DAILY 11/26/13 01/01/22 History Furosemide [Lasix] 20 mg PO DAILY 01/01/22 01/01/22 History Rivaroxaban [Xarelto] 20 mg PO DAILY@1700 01/01/22 01/01/22 History Allergies Allergy/AdvReac Type Severity Reaction Status Date / Time clindamycin Allergy Rash/Hives/ Verified 01/01/22 16:33 ITCHING dipyridamole Allergy Rash/Hives Verified 01/01/22 16:33 [From Persantine] MED USED FOR CHEMICAL STRESS Allergy Rash/Hives/ Uncoded 01/01/22 16:33 TEST ITCHING Physical Exam Vitals: Vital Signs Temp Pulse Pulse Resp BP BP Pulse Ox 01/02/22 09:34 86 16 101/76 01/02/22 06:19 94/57 01/02/22 02:52 76 15 95/70 98 01/01/22 20:30 89 16 112/81 96 01/01/22 19:01 69 16 112/71 96 01/01/22 17:30 84 18 139/74 97 01/01/22 15:18 98.4 F 91 18 113/83 98 Intake and Output 01/01/22 01/02/22 01/02/22 22:59 06:59 14:59 Output Total 2400 1900 Balance -2400 -1900 Output: Urine 2400 800 Urine/Stool Mix 1100 Other: Weight 81.647 kg PHYSICAL EXAMINATION: Patient is lying in the bed comfortably, no acute distress, awake alert and oriented.. HEENT: Normocephalic. Neck is supple. Pupils reactive. Nostrils clear. Oral cavity is moist. Neck reveals no JVD, carotid bruits, or thyromegaly. CHEST EXAMINATION: Trachea is central. Symmetrical expansion. Bibasilar diminished sounds. No wheezing or rhonchi.. CARDIAC: Normal S1, S2 with no gallops. No murmurs ABDOMEN: Soft. Bowel sounds present. Nontender. No organomegaly. No abdominal bruits. Extremities: Patient does have bilateral lower extremity edema right greater than left. Weeping serous fluid noted on the right lower extremity.. No clubbing or cyanosis Neurologically awake, alert, oriented x3 with well-coordinated movements. No focal deficits noted Skin: No rash or skin lesions. Psychiatric: Coperative. Nonsuicidal, Musculoskeletal: No joint swelling or deformity. Normal range of motion. Results CBC & Chem 7: 01/01/22 23:16 01/02/22 08:38 Labs: Abnormal Lab Results - Last 24 Hours (Table) 01/01/22 01/01/22 01/01/22 Range/Units 16:03 16:03 16:03 RBC 3.22 L (4.30-5.90) m/uL Hgb 7.6 L (13.0-17.5) gm/dL Hct 25.8 L (39.0-53.0) % MCH 23.6 L (25.0-35.0) pg MCHC 29.4 L (31.0-37.0) g/dL RDW 15.8 H (11.5-15.5) % Lymphocytes # (Manual) 0.36 L (1.0-4.8) k/uL PT 14.2 H (9.0-12.0) sec INR 1.4 H (<1.2) APTT 33.2 H (22.0-30.0) sec BUN 32 H (9-20) mg/dL Creatinine 1.32 H (0.66-1.25) mg/dL Glucose (74-99) mg/dL Calcium (8.4-10.2) mg/dL 01/01/22 01/01/22 01/02/22 Range/Units 17:58 23:16 08:38 RBC 3.31 L 3.08 L (4.30-5.90) m/uL Hgb 7.8 L 8.0 L (13.0-17.5) gm/dL Hct 27.1 L 25.5 L (39.0-53.0) % MCH 23.7 L (25.0-35.0) pg MCHC 28.9 L (31.0-37.0) g/dL RDW 15.8 H 15.7 H (11.5-15.5) % Lymphocytes # (Manual) (1.0-4.8) k/uL PT (9.0-12.0) sec INR (<1.2) APTT (22.0-30.0) sec BUN 30 H (9-20) mg/dL Creatinine 1.31 H (0.66-1.25) mg/dL Glucose 102 H (74-99) mg/dL Calcium 8.3 L (8.4-10.2) mg/dL Thrombosis Risk Factor Assmnt - DVT/VTE Prophylaxis DVT/VTE Prophylaxis: Pharmacologic Prophylaxis ordered Assessment and Plan Assessment: Acute on chronic CHF with preserved ejection fraction Severe mitral regurgitation Normocytic anemia with hemoglobin 7.6. Rule out iron deficiency Chronic atrial fibrillation on anticoagulation with Xarelto History of ASD closure in 1987 History of sick sinus syndrome Hypertension Osteoarthritis Chronic venous insufficiency Anxiety Prior history of smoking DVT prophylaxis patient is already on full anticoagulation Plan: Patient will be current IV Lasix 20 mg every 8 hourly and continue monitoring. Will be started back on Xarelto and follow-up renal function. Iron profile, B12 and folate levels ordered. Cardiology consult and follow-up closely. Time with Patient: Greater than 30
[2022-01-03] MEDS: FUROSEMIDE 10 MG/ML 2 ML VIAL IV SCH ×2 (01:29→10:16)
[2022-01-03] MEDS: PANTOPRAZOLE 40 MG TABLET PO SCH (06:11)
[2022-01-03 09:45] LABS: Calcium 8.5 mg/dL (8.4-10.2); Potassium 3.8 mmol/L (3.5-5.1)
[2022-01-03] MEDS: SODIUM FERRIC GLUCONAT-SUCROSE 125 MG in SODIUM CHLORIDE 0.9% 100 ML IVPB SCH (10:15)
[2022-01-03] MEDS: PARoxetine 20 MG TAB PO SCH (10:16)
[2022-01-03] MEDS: LOSARTAN 25 MG TAB PO SCH (10:16)
[2022-01-03 10:40] VITALS: BMI 27.2
--- NOTE | 2022-01-03 11:33 | P.PN ---
Progress Note - Text Progress Note Date: 01/03/22 Hospital course: Patient is a 81-year-old male with a known history of atrial fibrillation on ant icoagulation, hypertension, chronic bilateral venous insufficiency of the lower extremities, history of ASD closure in 1987 and other medical medical problems including prior history of smoking presents to ER with complaints of worsening shortness of breath for the past 3 days and also right foot weeping serous fluid. Patient otherwise denied any complaints of chest pain. No nausea vomiting or abdominal pain or diarrhea. Denied any recent illnesses. No cough or sputum production. No fever no chills. Chest x-ray showed moderate cardiomegaly. Atelectasis or pneumonia right lung base. EKG showed atrial fibrillation with heart rate 82 Laboratory data showed WBC 4.4 hemoglobin 7.6 and platelets 179 INR 1.4 Sodium 139 potassium 4.8 chloride 104 bicarb is 22 BUN 32 and creatinine 1.3 proBNP 3140 and troponin x1 negative and liver enzymes are not elevated Coronavirus PCR not detected. Admitted with CHF exacerbation. Started on IV Lasix. January 03: I assumed the care of patient today. Breathing better. Oral intake fair. Some edema lower extremity. On IV Lasix.In negative fluid balance over thousand cc. Active Medications Furosemide (Furosemide 10 Mg/Ml 2 Ml Vial) 20 mg IV Q8H [facility] Last Admin: 01/03/22 10:16 Dose: 20 mg Ferric Sodium Gluconate 125 mg (/ Sodium Chloride) 110 mls @ 100 mls/hr IVPB DAILY [facility] Stop: 01/05/22 10:05 Last Admin: 01/03/22 10:15 Dose: 100 mls/hr Losartan Potassium (Losartan 25 Mg Tab) 12.5 mg PO DAILY [facility] Last Admin: 01/03/22 10:16 Dose: 12.5 mg Pantoprazole Sodium (Pantoprazole 40 Mg Tablet) 40 mg PO AC-BRKFST [facility] Last Admin: 01/03/22 06:11 Dose: 40 mg Paroxetine HCl (Paroxetine 20 Mg Tab) 20 mg PO DAILY [facility] Last Admin: 01/03/22 10:16 Dose: 20 mg Rivaroxaban (Rivaroxaban 20 Mg Tab) 20 mg PO DAILY@1700 YURIY; Protocol Last Admin: 01/02/22 09:54 Dose: 20 mg Past Medical History Past Medical History: Atrial Fibrillation, Chest Pain / Angina, GI Bleed, Hypertension, Osteoarthritis (OA), Vascular Disorder Additional Past Medical History / Comment(s): Arthritis in multiple joints, chronic cervical pain, lower GI bleed, hemorrhoids, benign colon polyps, venouse insufficiency/discoloration bilateral ankles/feet, fluid around L lung after heart surgery with chest tube and now that lung has some scarring. History of Any Multi-Drug Resistant Organisms: None Reported Past Surgical History: Cholecystectomy, Heart Catheterization Additional Past Surgical History / Comment(s): 1987 ASD closure, cardiac cath x2, colonoscopies/benign polypectomies, laparotomy with ventral hernia repair/mesh, bilateral eye cataract removals/lens implants then clouded over and has had L eye lasered. Past Anesthesia/Blood Transfusion Reactions: No Reported Reaction Additional Past Anesthesia/Blood Transfusion Reaction / Comment(s): Pt states he was slow to wake after last colonoscopy. Past Psychological History: Anxiety Smoking Status: Former smoker Past Alcohol Use History: None Reported Past Drug Use History: None Reported - Past Family History Father Family Medical History: Cancer Additional Family Medical History / Comment(s): LUNG CA. FATHER WAS A SMOKER. Sister(s) Family Medical History: Cancer Additional Family Medical History / Comment(s): SKIN CA Mother Family Medical History: Dementia On examination: VITAL SIGNS: [97.6, 99, 17, 96/55, 99% room air] GENERAL APPEARANCE: BMI 76.5, declining but awake not in distress HEENT: Normal external appearance of nose and ear. Oral cavity normal EYES: Pupils equal. Conjunctiva normal. NECK: JVD not raised. Mass not palpable. RESPIRATORY: Respiratory effort normal. Lungs decreased breath sounds. CARDIOVASCULAR: First and second sounds normal. Edema present. ABDOMEN: Soft. Liver and spleen not palpable. No tenderness. No mass palpable. PSYCHIATRY: Alert and oriented x3. Mood and affect normal. MUSCULAR skeletal: Evidence of OA INVESTIGATIONS, reviewed in the clinical context: Potassium 3.8 BUN 34 creatinine 1.48 white count 4.6 hemoglobin 8 platelets 163 LDL 40.8 COVID 19 not detected vitamin B12 864 Iron 12 TIBC 441% % saturation 2.81 Chest x-ray film personally reviewed by me-pulmonary edema, cardiomegaly, fluid in the fissure Previous studies: 2-D echocardiogram [August 2021] EF 50%, severe biatrial enlargement, severe mitral regurgitation, PFO/ASD device. Creatinine 1.01 on 01/07/2020 Assessment and plan: -Acute on chronic CHF with preserved ejection fraction of 50%, slow to respond IV Lasix -Severe mitral regurgitation Follow with cardiology -Normocytic anemia with hemoglobin 7.6. From iron deficiency, secondary to CK D IV Ferrlecit -Persistent atrial fibrillation on anticoagulation with Xarelto Telemetry -History of ASD closure in 1987 -History of sick sinus syndrome -Essential Hypertension Cozaar -Chronic kidney disease, stage III likely nephrosclerosis Follow renal function -Primary Osteoarthritis Tylenol as needed -Chronic lower extremity venous insufficiency Erasto wrap -Anxiety Paxil Discussed with patient. Erasto wrap. Continue IV Lasix. Follow renal function. IV Ferrlecit. Follow with cardiology
--- NOTE | 2022-01-03 12:25 | P.PN ---
Progress Note - Text Patient is resting comfortably in bed. He did walk up and down the hallway and he is felt a lot better no dizziness no undue shortness of breath No chest discomfort On examination murmur of mitral regurgitation Breath sounds are decreased bilaterally but there are no rhonchi no crackles No JVD No lower extremity edema Labs revealed mildly worsening creatinine Hemoglobin 8.0 Impression Anemia hemoglobin 8.0 which is certainly exacerbating his heart failure symptoms Mildly worsening creatinine on Lasix IV Normal troponin LDL 40 Severe mitral regurgitation History of preserved systolic function with ASD closure, open heart surgery many years back Suggest Workup and management of anemia as an exacerbating factor for his heart failure Stop IV Lasix Start by mouth Lasix starting tomorrow, 40 mg by mouth daily Follow. Creatinine and potassium Continue 12.5 mg of losartan
[2022-01-03] MEDS: RIVAROXABAN 20 MG TAB PO SCH (17:35)
[2022-01-04] MEDS: PANTOPRAZOLE 40 MG TABLET PO SCH (06:32)
[2022-01-04] MEDS ORDERED: FUROSEMIDE 40 MG TAB PO SCH (09:00)
[2022-01-04 09:16] LABS: Calcium 8.3 mg/dL (8.4-10.2); Potassium 3.7 mmol/L (3.5-5.1)
[2022-01-04] MEDS: PARoxetine 20 MG TAB PO SCH (09:26)
[2022-01-04] MEDS: SODIUM FERRIC GLUCONAT-SUCROSE 125 MG in SODIUM CHLORIDE 0.9% 100 ML IVPB SCH (09:26)
[2022-01-04] MEDS: LOSARTAN 25 MG TAB PO SCH (09:26)
[2022-01-04 10:46] VITALS: BP 119/70; PULSE 88; RESP 18; TEMP 98
--- NOTE | 2022-01-04 17:32 | P.DS ---
Providers Date of admission: 01/03/22 10:37 Expected date of discharge: 01/04/22 Attending physician: Kristian Brink Consults: 01/01/22 17:25 Consult Physician Routine Consulting Provider: [facility] Consult Reason/Comments: Acute pulmonary edema Do you want consulting provider notified?: Yes Primary care physician: [facility] Course: Hospital course: Patient is a 81-year-old male with a known history of atrial fibrillation on anticoagulation, hypertension, chronic bilateral venous insufficiency of the lower extremities, history of ASD closure in 1987 and other medical medical problems including prior history of smoking presents to ER with complaints of worsening shortness of breath for the past 3 days and also right foot weeping serous fluid. Patient otherwise denied any complaints of chest pain. No nausea vomiting or abdominal pain or diarrhea. Denied any recent illnesses. No cough or sputum production. No fever no chills. Chest x-ray showed moderate cardiomegaly. Atelectasis or pneumonia right lung base. EKG showed atrial fibrillation with heart rate 82 Laboratory data showed WBC 4.4 hemoglobin 7.6 and platelets 179 INR 1.4 Sodium 139 potassium 4.8 chloride 104 bicarb is 22 BUN 32 and creatinine 1.3 proBNP 3140 and troponin x1 negative and liver enzymes are not elevated Coronavirus PCR not detected. Admitted with CHF exacerbation. Started on IV Lasix. January 03: I assumed the care of patient today. Breathing better. Oral intake fair. Some edema lower extremity. On IV Lasix.In negative fluid balance over thousand cc. January 04: Feeling well. Breathing stable. Did walk in the hallway. Erasto wrap. Change to by mouth Lasix. Cleared by cardiology. follow with Dr. Everardo Pollard. Care discussed. Past Medical History Past Medical History: Atrial Fibrillation, Chest Pain / Angina, GI Bleed, Hypertension, Osteoarthritis (OA), Vascular Disorder Additional Past Medical History / Comment(s): Arthritis in multiple joints, chronic cervical pain, lower GI bleed, hemorrhoids, benign colon polyps, venouse insufficiency/discoloration bilateral ankles/feet, fluid around L lung after heart surgery with chest tube and now that lung has some scarring. History of Any Multi-Drug Resistant Organisms: None Reported Past Surgical History: Cholecystectomy, Heart Catheterization Additional Past Surgical History / Comment(s): 1987 ASD closure, cardiac cath x2, colonoscopies/benign polypectomies, laparotomy with ventral hernia repair/mesh, bilateral eye cataract removals/lens implants then clouded over and has had L eye lasered. Past Anesthesia/Blood Transfusion Reactions: No Reported Reaction Additional Past Anesthesia/Blood Transfusion Reaction / Comment(s): Pt states he was slow to wake after last colonoscopy. Past Psychological History: Anxiety Smoking Status: Former smoker Past Alcohol Use History: None Reported Past Drug Use History: None Reported - Past Family History Father Family Medical History: Cancer Additional Family Medical History / Comment(s): LUNG CA. FATHER WAS A SMOKER. Sister(s) Family Medical History: Cancer Additional Family Medical History / Comment(s): SKIN CA Mother Family Medical History: Dementia On examination: VITAL SIGNS: 98, 88, 18, 119/70, 93% room air GENERAL APPEARANCE: Sitting up in bed, comfortable HEENT: Normal external appearance of nose and ear. Oral cavity normal EYES: Pupils equal. Conjunctiva normal. NECK: JVD not raised. Mass not palpable. RESPIRATORY: Respiratory effort normal. Lungs decreased breath sounds. CARDIOVASCULAR: First and second sounds normal. Edema present. ABDOMEN: Soft. Liver and spleen not palpable. No tenderness. No mass palpable. PSYCHIATRY: Alert and oriented x3. Mood and affect normal. MUSCULAR skeletal: Evidence of OA INVESTIGATIONS, reviewed in the clinical context: January 04: Potassium 3.7 BUN 29 creatinine 1.3 to Potassium 3.8 BUN 34 creatinine 1.48 white count 4.6 hemoglobin 8 platelets 163 LDL 40.8 COVID 19 not detected vitamin B12 864 Iron 12 TIBC 441% % saturation 2.81 Chest x-ray film personally reviewed by me-pulmonary edema, cardiomegaly, fluid in the fissure Previous studies: 2-D echocardiogram [August 2021] EF 50%, severe biatrial enlargement, severe mitral regurgitation, PFO/ASD device. Creatinine 1.01 on 01/07/2020 Assessment and plan: -Acute on chronic CHF with preserved ejection fraction of 50%, better Lasix 40 mg daily -Severe mitral regurgitation Follow with cardiology -Normocytic anemia with hemoglobin 7.6. From iron deficiency, secondary to CK D IV Ferrlecit -Persistent atrial fibrillation on anticoagulation with Xarelto Telemetry -History of ASD closure in 1987 -History of sick sinus syndrome -Essential Hypertension Cozaar -Chronic kidney disease, stage III likely nephrosclerosis Follow renal function -Primary Osteoarthritis Tylenol as needed -Chronic lower extremity venous insufficiency Erasto wrap -Anxiety Paxil Disposition: Home Plan - Discharge Summary Discharge Rx Participant: No New Discharge Prescriptions: New Losartan [Cozaar] 12.5 mg PO DAILY #30 tab Furosemide [Lasix] 40 mg PO DAILY #30 tab Continue PARoxetine [Paxil] 20 mg PO DAILY Rivaroxaban [Xarelto] 20 mg PO DAILY@1700 Discontinued Furosemide [Lasix] 20 mg PO DAILY Discharge Medication List PARoxetine [Paxil] 20 mg PO DAILY 11/26/13 [History] Rivaroxaban [Xarelto] 20 mg PO DAILY@1700 01/01/22 [History] Furosemide [Lasix] 40 mg PO DAILY #30 tab 01/04/22 [Rx] Losartan [Cozaar] 12.5 mg PO DAILY #30 tab 01/04/22 [Rx] Follow up Appointment(s)/Referral(s): Gt Pollard MD [STAFF PHYSICIAN] - 01/22/22 9:00 am Darian Jefferson DO [Primary Care Provider] - 01/10/22 10:00 am Patient Instructions/Handouts: Pulmonary Edema (DC) Discharge Disposition: HOME SELF-CARE
== END 2022-01-04 14:54 | disposition home or self-care (01) | DRG 291 ==
LOC: EC 15:16 → 3SCARD 17:25 → OBSVTOIN 01-03 10:37
PROVIDERS: ADMIT Hospitalist; ATTEND Hospitalist
DX: I13.0 Hypertensive heart and chronic kidney disease with heart failure and stage 1 through stage 4 chronic kidney disease, or unspecified chronic kidney disease (principal); I50.33 Acute on chronic diastolic (congestive) heart failure; I48.19 Other persistent atrial fibrillation; J98.11 Atelectasis; Z20.822 Contact with and (suspected) exposure to COVID-19; D50.9 Iron deficiency anemia, unspecified; I08.1 Rheumatic disorders of both mitral and tricuspid valves; I27.20 Pulmonary hypertension, unspecified; I45.10 Unspecified right bundle-branch block; I87.2 Venous insufficiency (chronic) (peripheral); M19.90 Unspecified osteoarthritis, unspecified site; F41.9 Anxiety disorder, unspecified; I49.5 Sick sinus syndrome; N18.30 Chronic kidney disease, stage 3 unspecified; Z87.891 Personal history of nicotine dependence; Z79.01 Long term (current) use of anticoagulants; Z79.899 Other long term (current) drug therapy; Z87.19 Personal history of other diseases of the digestive system; Z96.1 Presence of intraocular lens; Z98.42 Cataract extraction status, left eye; Z88.1 Allergy status to other antibiotic agents; Z88.8 Allergy status to other drugs, medicaments and biological substances; Z87.74 Personal history of (corrected) congenital malformations of heart and circulatory system; Z90.49 Acquired absence of other specified parts of digestive tract
CPT/HCPCS: 36415; 71046; 80048; 80053; 80061; 82607; 82747; 83540; 83550; 83605; 83735; 83880; 84484; 85025; 85027; 85610; 85730; 86850; 86900; 86901; 87635; 93005; 96374; 96375; 96376; 99285

== ENCOUNTER 2022-01-25 17:07 | Emergency (ER) | payer MEDICARE, OTHER ==
[2022-01-25 17:13] VITALS: RESP 18
[2022-01-25] MEDS ORDERED: TOPICAL SKIN ADHESIVE 1 EACH AMP TOPICAL ONE (17:24)
--- NOTE | 2022-01-25 17:53 | ED ---
Lower Extremity Injury HPI - General Chief Complaint: Extremity Injury, Lower Stated Complaint: rt foot hemorrhage Time Seen by Provider: 01/25/22 17:33 Source: patient, EMS, RN notes reviewed Mode of arrival: EMS Limitations: physical limitation - History of Present Illness Initial Comments: Patient is an 81-year-old male presenting to the emergency room via EMS with complaints of profusely bleeding varicose veins to his right foot. He reports that he has been battling difficulties with varicose veins and was attempting to change Band-Aids to bilateral sides of his right foot when that the varicose veins began bleeding. He states that he applied pressure and a observant pads to help stop the bleeding but the bleeding continued to persist. EMS continued to slightly wrap the area with a towel and copious amounts of blood were noted on the additional dressing along with a fully saturated original dressing. He states that he was referred to vascular previously and has an appointment with them next week for further evaluation and treatment. 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 He is currently on Xarelto with a recent dose decrease from 20 to 15 mg for atrial fibrillation. He denies any other complaints besides the bleeding including any chest pain, short ness of breath, abdominal pain, nausea, vomiting, headache, dizziness, fevers or chills. In addition to his varicose veins and atrial fibrillation history he has a past medical history significant for CAD, hypertension, GI bleed, osteoarthritis and chronic neck pain. - Related Data Home Medications Medication Instructions Recorded Confirmed PARoxetine [Paxil] 20 mg PO DAILY 11/26/13 01/01/22 Rivaroxaban [Xarelto] 20 mg PO DAILY@1700 01/01/22 01/01/22 Previous Rx's Medication Instructions Recorded Furosemide [Lasix] 40 mg PO DAILY #30 tab 01/04/22 Losartan [Cozaar] 12.5 mg PO DAILY #30 tab 01/04/22 Allergies Allergy/AdvReac Type Severity Reaction Status Date / Time clindamycin Allergy Rash/Hives/ Verified 01/25/22 17:13 ITCHING dipyridamole Allergy Rash/Hives Verified 01/25/22 17:13 [From Persantine] MED USED FOR CHEMICAL STRESS Allergy Rash/Hives/ Uncoded 01/25/22 17:13 TEST ITCHING Review of Systems ROS Statement: Those systems with pertinent positive or pertinent negative responses have been documented in the HPI. ROS Other: All systems not noted in ROS Statement are negative. Past Medical History Past Medical History: Atrial Fibrillation, Coronary Artery Disease (CAD), Chest Pain / Angina, GI Bleed, Hypertension, Osteoarthritis (OA), Vascular Disorder Additional Past Medical History / Comment(s): Arthritis in multiple joints, chronic cervical pain, lower GI bleed, hemorrhoids, benign colon polyps, venouse insufficiency/discoloration bilateral ankles/feet, fluid around L lung after heart surgery with chest tube and now that lung has some scarring. History of Any Multi-Drug Resistant Organisms: None Reported Past Surgical History: Cholecystectomy, Heart Catheterization Additional Past Surgical History / Comment(s): 1987 ASD closure, cardiac cath x2, colonoscopies/benign polypectomies, laparotomy with ventral hernia repair/m esh, bilateral eye cataract removals/lens implants then clouded over and has had L eye lasered. Past Anesthesia/Blood Transfusion Reactions: No Reported Reaction Additional Past Anesthesia/Blood Transfusion Reaction / Comment(s): Pt states he was slow to wake after last colonoscopy. Past Psychological History: Anxiety Smoking Status: Former smoker Past Alcohol Use History: None Reported Past Drug Use History: None Reported - Past Family History Father Family Medical History: Cancer Additional Family Medical History / Comment(s): LUNG CA. FATHER WAS A SMOKER. Sister(s) Family Medical History: Cancer Additional Family Medical History / Comment(s): SKIN CA Mother Family Medical History: Dementia General Exam General appearance: alert, in no apparent distress Head exam: Present: atraumatic, normocephalic, normal inspection Eye exam: Present: normal appearance, PERRL, EOMI. Absent: scleral icterus, conjunctival injection, periorbital swelling ENT exam: Present: normal exam, mucous membranes moist Neck exam: Present: normal inspection, full ROM Respiratory exam: Absent: respiratory distress, accessory muscle use Cardiovascular Exam: Present: regular rate GI/Abdominal exam: Absent: distended Right Lower Leg exam: Present: full ROM, swelling. Absent: tenderness Ankle exam: Present: full ROM, swelling Foot/Toe exam: Present: full ROM, swelling. Absent: tenderness Back exam: Present: normal inspection Neurological exam: Present: alert, oriented X3, CN II-XII intact Psychiatric exam: Present: normal affect, normal mood Skin exam: Present: other (3 puncture like wound to foot 2 on the lateral aspect and one on the medial aspect secondary to bleeding varicose veins. Upon dressing removal one varicosity puncture wound to the lateral aspect of the right foot still bleeding bleeding stopped with manual pressure and excellent been applied) Course Vital Signs 01/25/22 01/25/22 01/25/22 17:08 18:35 19:25 Temperature 97.9 F 97.6 F Pulse Rate 89 74 98 Respiratory 18 18 18 Rate Blood Pressure 117/99 121/66 118/80 O2 Sat by Pulse 99 98 99 Oximetry Medical Decision Making - Medical Decision Making 81-year-old male presents to the emergency room with bleeding varicose vein to the right foot with known varicose veins and established appointment with vascular next week. No indication for diagnostic imaging. Will obtain CBC given significant bleeding from multiple varicosities prior to arrival to the emergency room. With the assistance of Dr. Santoyo direct pressure held at an angle and Exofen applied to lateral puncture like wound to control bleeding. Patient tolerated procedure well. Initial CBC revealed hemoglobin of 6. 6 repeat hemoglobin more stable at 7.1 findings reviewed with patient and family at bedside. Patient is asymptomatic of low hemoglobin and would like to be discharged home with follow-up with his primary care provider. Will discharge patient home in stable condition with strict return parameters regarding bleeding and symptomatic anemia. Advised to follow-up with primary care provider and vascular physician whom he has already established with for an appointment next week. Dressing applied to right foot with continued hemostasis and no further episodes of bleeding. Case discussed with Dr. Santoyo. - Lab Data Result diagrams: 01/25/22 18:42 01/25/22 18:42 Lab Results 01/25/22 01/25/22 01/25/22 Range/Units 17:32 18:42 18:42 WBC 4.6 5.1 (3.8-10.6) k/uL RBC 2.87 L 3.10 L (4.30-5.90) m/uL Hgb 6.6 L* 7.1 L (13.0-17.5) gm/dL Hct 22.5 L 24.1 L (39.0-53.0) % MCV 78.3 L 77.6 L (80.0-100.0) fL MCH 22.9 L 22.9 L (25.0-35.0) pg MCHC 29.3 L 29.5 L (31.0-37.0) g/dL RDW 17.8 H 17.8 H (11.5-15.5) % Plt Count 188 169 (150-450) k/uL MPV 8.7 10.0 Neutrophils % CHEMIST ENZYMES 75 Neutrophils % (Manual) 77 % Lymphocytes % CHEMIST ENZYMES 12 Lymphocytes % (Manual) 16 % Monocytes % CHEMIST ENZYMES 8 Monocytes % (Manual) 7 % Eosinophils % CHEMIST ENZYMES 2 Basophils % CHEMIST ENZYMES 1 Neutrophils # CHEMIST ENZYMES 3.8 Neutrophils # (Manual) 3.54 (1.3-7.7) k/uL Lymphocytes # CHEMIST ENZYMES 0.6 L Lymphocytes # (Manual) 0.74 L (1.0-4.8) k/uL Monocytes # CHEMIST ENZYMES 0.4 Monocytes # (Manual) 0.32 (0-1.0) k/uL Eosinophils # CHEMIST ENZYMES 0.1 Basophils # CHEMIST ENZYMES 0.0 Nucleated RBCs 0 (0-0) /100 WBC Manual Slide Review Performed Hypochromasia Marked Marked Poikilocytosis Moderate Moderate Anisocytosis Slight Slight Microcytosis Slight Slight Sodium 139 (137-145) mmol/L Potassium 5.2 H (3.5-5.1) mmol/L Chloride 106 (98-107) mmol/L Carbon Dioxide 25 (22-30) mmol/L Anion Gap 8 mmol/L BUN 35 H (9-20) mg/dL Creatinine 1.43 H (0.66-1.25) mg/dL Est GFR (CKD-EPI)AfAm 52 (>60 ml/min/1.73 sqM) Est GFR (CKD-EPI)NonAf 45 (>60 ml/min/1.73 sqM) Glucose 115 H (74-99) mg/dL Calcium 8.1 L (8.4-10.2) mg/dL Total Bilirubin 1.0 (0.2-1.3) mg/dL AST 18 (17-59) U/L ALT 12 (4-49) U/L Alkaline Phosphatase 88 (38-126) U/L Total Protein 5.7 L (6.3-8.2) g/dL Albumin 3.3 L (3.5-5.0) g/dL Disposition Clinical Impression: Anemia, Bleeding from varicose veins of right lower extremity Disposition: HOME SELF-CARE Condition: Stable Instructions (If sedation given, give patient instructions): Anemia (ED) Additional Instructions: Please continue to keep varicose vein areas covered to prevent excoriation and bumping causing bleeding. Avoid scrubbing areas with skin glue applied. Recommend follow-up CBC with your primary care provider or vascular specialist next week. Please follow-up with your primary care provider along with vascular provider already scheduled with. Please return to the Emergency Department if symptoms worsen or any other concerns. Is patient prescribed a controlled substance at d/c from ED?: No Referrals: Darian Jefferson DO [Primary Care Provider] - 1-2 days Time of Disposition: 19:00
[2022-01-25 18:13] LABS: Anisocytosis Slight; HCT 22.5 % (39.0-53.0); Hypochromasia Marked; MCH 22.9 pg (25.0-35.0); MCHC 29.3 g/dL (31.0-37.0); MCV 78.3 fL (80.0-100.0); Mean Platelet Volume 8.7; Microcytosis Slight; Platelet Count 188 k/uL (150-450); Poikilocytosis Moderate; RBC 2.87 m/uL (4.30-5.90); RDW 17.8 % (11.5-15.5); WBC 4.6 k/uL (3.8-10.6)
[2022-01-25 18:20] LABS: HGB 6.6 gm/dL (13.0-17.5)
[2022-01-25 18:28] LABS: Lymphocytes # (M) 0.74 k/uL (1.0-4.8); Monocytes # (M) 0.32 k/uL (0-1.0); Neutrophils # (M) 3.54 k/uL (1.3-7.7); Neutrophils % (M) 77 %; Nucleated Red Blood Cells 0 /100 WBC (0-0); Total Cells Counted 100
[2022-01-25 18:48] LABS: Anisocytosis Slight; Basophils % (A) 1 %; Eosinophils # (A) 0.1 k/uL (0-0.7); Eosinophils % (A) 2 %; HCT 24.1 % (39.0-53.0); HGB 7.1 gm/dL (13.0-17.5); Hypochromasia Marked; Lymphocytes # (A) 0.6 k/uL (1.0-4.8); Lymphocytes % (A) 12 %; MCH 22.9 pg (25.0-35.0); MCHC 29.5 g/dL (31.0-37.0); MCV 77.6 fL (80.0-100.0); Microcytosis Slight; Monocytes # (A) 0.4 k/uL (0-1.0); Monocytes % (A) 8 %; Neutrophils # (A) 3.8 k/uL (1.3-7.7); Neutrophils % (A) 75 %; Platelet Count 169 k/uL (150-450); Poikilocytosis Moderate; RDW 17.8 % (11.5-15.5); WBC 5.1 k/uL (3.8-10.6)
[2022-01-25 19:03] LABS: Albumin 3.3 g/dL (3.5-5.0); Calcium 8.1 mg/dL (8.4-10.2); Potassium 5.2 mmol/L (3.5-5.1); Total Protein 5.7 g/dL (6.3-8.2)
[2022-01-25 19:27] VITALS: BP 118/80; PULSE 98; TEMP 97.6
== END 2022-01-25 19:25 | disposition home or self-care (01) ==
LOC: EC 17:07
DX: D64.9 Anemia, unspecified (principal); I83.018 Varicose veins of right lower extremity with ulcer other part of lower leg; I10 Essential (primary) hypertension; I48.91 Unspecified atrial fibrillation; I25.10 Atherosclerotic heart disease of native coronary artery without angina pectoris; M19.90 Unspecified osteoarthritis, unspecified site; F41.9 Anxiety disorder, unspecified; Z87.891 Personal history of nicotine dependence; Z79.899 Other long term (current) drug therapy; Z88.1 Allergy status to other antibiotic agents; Z88.5 Allergy status to narcotic agent; Z88.8 Allergy status to other drugs, medicaments and biological substances
CPT/HCPCS: 36415; 80053; 85025

== ENCOUNTER 2022-02-07 21:18 | Inpatient (IN) | payer MEDICARE, OTHER ==
--- NOTE | 2022-02-07 21:29 | ED ---
Weakness HPI - General Stated complaint: marcos ABERNATHY Time Seen by Provider: 02/07/22 21:28 Source: RN notes reviewed, old records reviewed Mode of arrival: EMS Limitations: no limitations - History of Present Illness Initial comments: This is an 81-year-old male DF for severe weakness. Patient states he short of breath unable to do activities of daily living significant swelling of his hands arms legs and feet. Patient also states he has significant swelling of his scrotum as well. No pain just edema with persistent weakness and shortness of breath MD Complaint: generalized weakness -: days(s) Location: generalized Severity: moderate Severity scale (1-10): 5 Consistency: constant Improves with: none Worsens with: none Context: history of similar Associated Symptoms: confusion, shortness of breath - Related Data Home Medications Medication Instructions Recorded Confirmed PARoxetine [Paxil] 20 mg PO DAILY 11/26/13 01/01/22 Rivaroxaban [Xarelto] 20 mg PO DAILY@1700 01/01/22 01/01/22 Previous Rx's Medication Instructions Recorded Furosemide [Lasix] 40 mg PO DAILY #30 tab 01/04/22 Losartan [Cozaar] 12.5 mg PO DAILY #30 tab 01/04/22 Allergies Allergy/AdvReac Type Severity Reaction Status Date / Time clindamycin Allergy Rash/Hives/ Verified 02/07/22 21:30 ITCHING dipyridamole Allergy Rash/Hives Verified 02/07/22 21:30 [From Persantine] MED USED FOR CHEMICAL STRESS Allergy Rash/Hives/ Uncoded 02/07/22 21:30 TEST ITCHING Review of Systems ROS Statement: Those systems with pertinent positive or pertinent negative responses have been documented in the HPI. ROS Other: All systems not noted in ROS Statement are negative. Past Medical History Past Medical History: Atrial Fibrillation, Coronary Artery Disease (CAD), Chest Pain / Angina, GI Bleed, Hypertension, Osteoarthritis (OA), Vascular Disorder Additional Past Medical History / Comment(s): Arthritis in multiple joints, chronic cervical pain, lower GI bleed, hemorrhoids, benign colon polyps, venouse insufficiency/discoloration bilateral ankles/feet, fluid around L lung after heart surgery with chest tube and now that lung has some scarring. History of Any Multi-Drug Resistant Organisms: None Reported Past Surgical History: Cholecystectomy, Heart Catheterization Additional Past Surgical History / Comment(s): 1987 ASD closure, cardiac cath x2, colonoscopies/benign polypectomies, laparotomy with ventral hernia repair/mesh, bilateral eye cataract removals/lens implants then clouded over and has had L eye lasered. Past Anesthesia/Blood Transfusion Reactions: No Reported Reaction Additional Past Anesthesia/Blood Transfusion Reaction / Comment(s): Pt states he was slow to wake after last colonoscopy. Past Psychological History: Anxiety Smoking Status: Former smoker Past Alcohol Use History: None Reported Past Drug Use History: None Reported - Past Family History Father Family Medical History: Cancer Additional Family Medical History / Comment(s): LUNG CA. FATHER WAS A SMOKER. Sister(s) Family Medical History: Cancer Additional Family Medical History / Comment(s): SKIN CA Mother Family Medical History: Dementia General Exam - General Exam Comments Initial Comments: Generalized edema hands feet legs General appearance: alert, lethargic Head exam: Present: atraumatic, normocephalic, normal inspection Eye exam: Present: normal appearance, PERRL, EOMI. Absent: scleral icterus, conjunctival injection, periorbital swelling ENT exam: Present: normal exam, mucous membranes moist Neck exam: Present: normal inspection. Absent: tenderness, meningismus, lymphadenopathy Respiratory exam: Present: normal lung sounds bilaterally. Absent: respiratory distress, wheezes, rales, rhonchi, stridor Cardiovascular Exam: Present: regular rate, normal rhythm, normal heart sounds. Absent: systolic murmur, diastolic murmur, rubs, gallop, clicks GI/Abdominal exam: Present: soft, normal bowel sounds. Absent: distended, tenderness, guarding, rebound, rigid Extremities exam: Present: normal inspection, full ROM, normal capillary refill. Absent: tenderness, pedal edema, joint swelling, calf tenderness Back exam: Present: normal inspection Neurological exam: Present: alert, oriented X3, CN II-XII intact Psychiatric exam: Present: normal affect, normal mood Skin exam: Present: warm, dry, intact, normal color. Absent: rash Course Vital Signs 02/07/22 21:20 Temperature 97.0 F L Pulse Rate 82 Respiratory 20 Rate Blood Pressure 111/66 O2 Sat by Pulse 95 Oximetry - Reevaluation(s) Reevaluation #1: 02/07/22 23:33 Attic record is reviewed Reevaluation #2: 02/07/22 23:33 Patient informed results and questions answered Reevaluation #3: 02/07/22 23:33 no change in symptoms here in the ER - Consultations Consultation #1: Spoke with Dr. Brink agrees to admit this patient EKG Findings - EKG Comments: EKG Findings:: EKG is A. fib 90 11/23/1942 QRS 450 Medical Decision Making - Medical Decision Making 81 male with weakness significant anemia symptomatic anasarca CHF swollen extremities. Patient be admitted for symptomatic management replacement of anemia - Lab Data Result diagrams: 02/07/22 22:50 02/07/22 21:37 Lab Results 02/07/22 02/07/22 02/07/22 Range/Units 21:37 21:37 22:50 WBC 5.5 (3.8-10.6) k/uL RBC 3.01 L (4.30-5.90) m/uL Hgb 6.4 L* (13.0-17.5) gm/dL Hct 22.1 L (39.0-53.0) % MCV 73.5 L (80.0-100.0) fL MCH 21.4 L (25.0-35.0) pg MCHC 29.1 L (31.0-37.0) g/dL RDW 18.3 H (11.5-15.5) % Plt Count 237 (150-450) k/uL MPV 9.2 Neutrophils % 74 % Lymphocytes % 14 % Monocytes % 8 % Eosinophils % 1 % Basophils % 1 % Neutrophils # 4.1 (1.3-7.7) k/uL Lymphocytes # 0.8 L (1.0-4.8) k/uL Monocytes # 0.4 (0-1.0) k/uL Eosinophils # 0.0 (0-0.7) k/uL Basophils # 0.1 (0-0.2) k/uL Hypochromasia Marked Poikilocytosis Moderate Anisocytosis Slight Microcytosis Moderate Sodium 137 (137-145) mmol/L Potassium 4.3 (3.5-5.1) mmol/L Chloride 106 (98-107) mmol/L Carbon Dioxide 26 (22-30) mmol/L Anion Gap 5 mmol/L BUN 44 H (9-20) mg/dL Creatinine 1.59 H (0.66-1.25) mg/dL Est GFR (CKD-EPI)AfAm 46 (>60 ml/min/1.73 sqM) Est GFR (CKD-EPI)NonAf 40 (>60 ml/min/1.73 sqM) Glucose 94 (74-99) mg/dL Calcium 7.9 L (8.4-10.2) mg/dL Phosphorus 4.0 (2.5-4.5) mg/dL Magnesium 2.4 H (1.6-2.3) mg/dL Total Bilirubin 1.3 (0.2-1.3) mg/dL AST 22 (17-59) U/L ALT 14 (4-49) U/L Alkaline Phosphatase 104 (38-126) U/L Troponin I <0.012 (0.000-0.034) ng/mL Total Protein 6.3 (6.3-8.2) g/dL Albumin 3.5 (3.5-5.0) g/dL TSH 3.740 (0.465-4.680) mIU/L - EKG Data -: EKG Interpreted by Me (EKG is A. fib 99 QRS 141 QTc 450) - Radiology Data Radiology results: report reviewed (Chest x-ray is positive both or edema), image reviewed Disposition Clinical Impression: Acute pulmonary edema, Anemia, Anasarca, Weakness, CHF (congestive heart failure) Disposition: ADMITTED IP TO THIS [facility] Condition: Fair Is patient prescribed a controlled substance at d/c from ED?: No Referrals: Darian Jefferson DO [Primary Care Provider] - 1-2 days Time of Disposition: 23:35
--- NOTE | 2022-02-07 21:58 | XR ---
EXAMINATION TYPE: XR chest 1V portable DATE OF EXAM: 02/07/2022 9:54 PM COMPARISON: Chest radiographs from 01/01/2022 TECHNIQUE: XR chest 1V portable Portable AP radiograph of the chest. CLINICAL INDICATION:Male, 81 years old with history of sob; FINDINGS: Lungs/Pleura: No evidence of focal consolidation or pneumothorax. Blunting of the costophrenic angles is present. Pulmonary vascularity: Mild pulmonary vascular congestion. Heart/mediastinum: Cardiomediastinal silhouette is enlarged and stable. Musculoskeletal: No acute osseous pathology. IMPRESSION: Cardiomegaly, pulmonary vascular congestion and bilateral pleural effusions. Correlate with BNP for c ongestive heart failure.
[2022-02-07 22:02] LABS: Albumin 3.5 g/dL (3.5-5.0); Calcium 7.9 mg/dL (8.4-10.2); Magnesium 2.4 mg/dL (1.6-2.3); Potassium 4.3 mmol/L (3.5-5.1); Total Bilirubin 1.3 mg/dL (0.2-1.3); Total Protein 6.3 g/dL (6.3-8.2)
[2022-02-07 23:22] LABS: Anisocytosis Slight; Basophils # (A) 0.1 k/uL (0-0.2); Basophils % (A) 1 %; Eosinophils % (A) 1 %; HCT 22.1 % (39.0-53.0); Hypochromasia Marked; Lymphocytes # (A) 0.8 k/uL (1.0-4.8); Lymphocytes % (A) 14 %; MCH 21.4 pg (25.0-35.0); MCHC 29.1 g/dL (31.0-37.0); MCV 73.5 fL (80.0-100.0); Mean Platelet Volume 9.2; Microcytosis Moderate; Monocytes # (A) 0.4 k/uL (0-1.0); Monocytes % (A) 8 %; Neutrophils # (A) 4.1 k/uL (1.3-7.7); Neutrophils % (A) 74 %; Platelet Count 237 k/uL (150-450); Poikilocytosis Moderate; RBC 3.01 m/uL (4.30-5.90); RDW 18.3 % (11.5-15.5); WBC 5.5 k/uL (3.8-10.6)
[2022-02-07 23:26] LABS: HGB 6.4 gm/dL (13.0-17.5)
[2022-02-07] MEDS ORDERED: MORPHINE SULFATE 4 MG/ML SYRINGE IV PRN (23:30)
[2022-02-07] MEDS ORDERED: NALOXONE 0.4 MG/ML 1 ML VIAL IV PRN (23:30)
[2022-02-07] MEDS ORDERED: ONDANSETRON 4 MG/2 ML VIAL IVP PRN (23:30)
[2022-02-07] MEDS ORDERED: FUROSEMIDE 10 MG/ML 10 ML VIAL IV STA (23:30)
[2022-02-07] MEDS ORDERED: SPIRONOLACTONE-HCTZ 25-25MG 1 EACH TAB PO STA (23:30)
[2022-02-07 23:41] LABS: INR 2.1 (<1.2); Partial Thromboplastin Time 40.4 sec (22.0-30.0)
[2022-02-08] MEDS: SODIUM CHLORIDE 0.9% 1,000 ML IV SCH ×2 (01:53→02:29)
[2022-02-08 04:49] LABS: Anisocytosis Slight; HCT 24.1 % (39.0-53.0); Hypochromasia Marked; MCV 75.7 fL (80.0-100.0); Microcytosis Moderate; Platelet Count 202 k/uL (150-450); Poikilocytosis Moderate; RBC 3.19 m/uL (4.30-5.90); RDW 18.1 % (11.5-15.5); WBC 4.4 k/uL (3.8-10.6)
[2022-02-08 05:03] LABS: Albumin 3.4 g/dL (3.5-5.0); Potassium 4.3 mmol/L (3.5-5.1); Total Bilirubin 1.5 mg/dL (0.2-1.3); Total Protein 6.1 g/dL (6.3-8.2)
[2022-02-08 05:47] LABS: Eosinophils # (M) 0.09 k/uL (0-0.7); Monocytes # (M) 0.22 k/uL (0-1.0); Neutrophils # (M) 3.39 k/uL (1.3-7.7); Neutrophils % (M) 77 %; Nucleated Red Blood Cells 0 /100 WBC (0-0); Total Cells Counted 100
[2022-02-08 05:48] LABS: Poikilocytosis (M) Present; Polychromasia Present
--- NOTE | 2022-02-08 07:16 | XR ---
EXAMINATION TYPE: XR chest 1V DATE OF EXAM: 02/08/2022 COMPARISON: 02/07/2022 HISTORY: 81-year-old male CHF TECHNIQUE: Single frontal view of the chest is obtained. FINDINGS: Median sternotomy wires are present. Leftward patient rotation ultrasound normal cardiac and mediasti nal contours. Cardiac/pericardiac silhouette remains moderately enlarged. Patchy right basilar opacit y shows slight improvement. Blunted costophrenic angles suggesting trace effusions on both sides. Mil d patchy retrocardiac density is similar. IMPRESSION: 1. Similar moderate enlargement of the cardiac/pericardiac silhouette. 2. Patchy lower lung densities show slight improvement on the right. Trace pleural effusions persist.
[2022-02-08] MEDS ORDERED: MAGNESIUM SULFATE-D5W PMX 1 GM in DEXTROSE/WATER 1 100ML.BAG IVPB SCH (12:00)
--- NOTE | 2022-02-08 14:09 | P.HPIM ---
History of Present Illness Patient is a pleasant 81-year-old female came in with compensative for bilateral lower extremity swelling orthopnea paroxysmal nocturnal dyspnea and shortness of breath. Patient's symptoms has been progressively getting worse patient does have history of chronic diastolic dysfunction chronic venous insufficiency in bilateral lower extremities. Patient also has history of atrial fibrillation for which patient is on xarelto 50 mg daily which is being switched to eliquis because of poor function. She also has chronic anemia found to have hemoglobin of around 6.7 received 1 unit of PRBC transfusion previous serum iron month of December is extremely low at 12 no ferritin available at this time. Patient follows up with hematology and patient has a scheduled colonoscopy because of unexplained iron deficiency anemia. REVIEW OF SYSTEMS: CONSTITUTIONAL: No fever, no malaise, no fatigue. HEENT: No recent visual problems or hearing problems. Denied any sore throat. CARDIOVASCULAR: No chest pain,no palpitations, no syncope. PULMONARY: no hemoptysis. GASTROINTESTINAL: No diarrhea, no nausea, no vomiting, no abdominal pain. NEUROLOGICAL: No headaches, no weakness, no numbness. HEMATOLOGICAL: Denies any bleeding or petechiae. GENITOURINARY: Denies any burning micturition, frequency, or urgency. MUSCULOSKELETAL/RHEUMATOLOGICAL: Denies any joint pain, swelling, or any muscle pain. ENDOCRINE: Denies any polyuria or polydipsia. The rest of the 14-point review of systems is negative. PHYSICAL EXAMINATION: GENERAL: The patient is alert and oriented x3, not in any acute distress. Well developed, well nourished. HEENT: Pupils are round and equally reacting to light. EOMI. No scleral icterus. No conjunctival pallor. Normocephalic, atraumatic. No pharyngeal erythema. No thyromegaly. CARDIOVASCULAR: S1 and S2 present. No murmurs, rubs, or gallops. PULMONARY: Chest is clear to auscultation, no wheezing or crackles. ABDOMEN: Soft, nontender, nondistended, normoactive bowel sounds. No palpable organomegaly. MUSCULOSKELETAL: No joint swelling or deformity. EXTREMITIES: No cyanosis, clubbing, extensive bilateral lower extremity edema, chronic venous stasis some cyanosis of the right forefoot chronic venous stasis dermatosis skin breakdown is bandaged bilateral legs NEUROLOGICAL: Gross neurological examination did not reveal any focal deficits. SKIN: No rashes. Assessment and plan -Congestive heart failure chronic diastolic dysfunction with acute exacerbation patient recent echocardiogram showed EF of 55-60% patient will be started on IV Lasix. -Mild acute and failure on chronic kidney disease stage III because of acute renal failure since patient doesn't have any systolic dysfunction on hold off on lisinopril was continued on Lasix patient the is bit hypotensive as well -Chronic kidney disease stage III secondary to hypertensive nephrosclerosis baseline creatinine around 1.3 present creatinine 1.6. -Bilateral lower extremely venous stasis with skin breakdown and her dermatosis due to chronic venous stasis, wound care will be consulted -Paroxysmal atrial fibrillation patient is rate controlled continue with the anticoagulation DVT prophylaxis: Anti-coagulation as mentioned above Past Medical History Past Medical History: Atrial Fibrillation, Coronary Artery Disease (CAD), Chest Pain / Angina, GI Bleed, Hypertension, Osteoarthritis (OA), Vascular Disorder Additional Past Medical History / Comment(s): Arthritis in multiple joints, chronic cervical pain, lower GI bleed, hemorrhoids, benign colon polyps, venouse insufficiency/discoloration bilateral ankles/feet, fluid around L lung after heart surgery with chest tube and now that lung has some scarring. History of Any Multi-Drug Resistant Organisms: None Reported Past Surgical History: Cholecystectomy, Heart Catheterization Additional Past Surgical History / Comment(s): 1987 ASD closure, cardiac cath x2, colonoscopies/benign polypectomies, laparotomy with ventral hernia repair/mesh, bilateral eye cataract removals/lens implants then clouded over and has had L eye lasered. Past Anesthesia/Blood Transfusion Reactions: No Reported Reaction Additional Past Anesthesia/Blood Transfusion Reaction / Comment(s): Pt states he was slow to wake after last colonoscopy. Past Psychological History: Anxiety Additional Psychological History / Comment(s): OCD. Pt resides with his son, Farnk. Pt uses no assistive device. He drives some, son does most of the driving. Smoking Status: Never smoker Past Alcohol Use History: None Reported Additional Past Alcohol Use History / Comment(s): SMOKER AGE 15(6) quit 1961 was 1/4 ppd and occasional pipe during that time. Past Drug Use History: None Reported - Past Family History Father Family Medical History: Cancer Additional Family Medical History / Comment(s): LUNG CA. FATHER WAS A SMOKER. Sister(s) Family Medical History: Cancer Additional Family Medical History / Comment(s): SKIN CA Mother Family Medical History: Dementia Medications and Allergies Home Medications Medication Instructions Recorded Confirmed Type PARoxetine [Paxil] 20 mg PO DAILY 11/26/13 02/08/22 History Furosemide [Lasix] 40 mg PO DAILY #30 tab 01/04/22 02/08/22 Rx Rivaroxaban [Xarelto] 15 mg PO W/SUPPER 02/08/22 02/08/22 History lisinopriL 2.5 mg PO DAILY PRN 02/08/22 02/08/22 History Allergies Allergy/AdvReac Type Severity Reaction Status Date / Time clindamycin Allergy Rash/Hives/ Verified 02/08/22 09:32 ITCHING dipyridamole Allergy Rash/Hives Verified 02/08/22 09:32 [From Persantine] MED USED FOR CHEMICAL STRESS Allergy Rash/Hives/ Uncoded 02/08/22 09:32 TEST ITCHING Physical Exam Vitals: Vital Signs Temp Pulse Pulse Resp BP Pulse Ox 02/08/22 05:14 98.5 F 88 18 116/70 92 L 02/08/22 04:54 8.4 F L 80 18 116/80 93 L 02/08/22 04:45 98.4 F 84 18 114/75 94 L 02/08/22 04:03 98.0 F 78 18 116/77 93 L 02/08/22 02:45 80 18 02/08/22 02:27 98.2 F 83 18 115/71 91 L 02/08/22 01:59 98.1 F 89 18 116/73 100 02/08/22 01:39 98.2 F 89 18 118/75 96 02/08/22 01:30 98.2 F 89 16 100/70 02/08/22 00:15 88 16 109/74 97 02/08/22 00:00 77 16 100/52 94 L 02/07/22 21:20 97.0 F L 82 20 111/66 95 Intake and Output 02/07/22 02/08/22 02/08/22 22:59 06:59 14:59 Intake Total 310 428 Output Total 150 Balance 310 278 Intake: Oral 118 Blood Product 310 310 Rc As-1 Unit 0 310 [id number] Rc As-1 Unit 310 [id number] Output: Urine 150 Other: Voiding Method Urinal # Voids 2 Weight 86.183 kg 86.183 kg Results CBC & Chem 7: 02/08/22 04:30 02/08/22 04:30 Labs: Abnormal Lab Results - Last 24 Hours (Table) 02/07/22 02/07/22 02/07/22 Range/Units 21:37 22:50 22:50 RBC 3.01 L (4.30-5.90) m/uL Hgb 6.4 L* (13.0-17.5) gm/dL Hct 22.1 L (39.0-53.0) % MCV 73.5 L (80.0-100.0) fL MCH 21.4 L (25.0-35.0) pg MCHC 29.1 L (31.0-37.0) g/dL RDW 18.3 H (11.5-15.5) % Lymphocytes # 0.8 L (1.0-4.8) k/uL Lymphocytes # (Manual) (1.0-4.8) k/uL PT 21.0 H (9.0-12.0) sec INR 2.1 H (<1.2) APTT 40.4 H (22.0-30.0) sec BUN 44 H (9-20) mg/dL Creatinine 1.59 H (0.66-1.25) mg/dL Glucose (74-99) mg/dL Calcium 7.9 L (8.4-10.2) mg/dL Magnesium 2.4 H (1.6-2.3) mg/dL Total Bilirubin (0.2-1.3) mg/dL Total Protein (6.3-8.2) g/dL Albumin (3.5-5.0) g/dL Crossmatch 02/07/22 02/08/22 02/08/22 Range/Units 23:58 04:30 04:30 RBC 3.19 L (4.30-5.90) m/uL Hgb 7.0 L (13.0-17.5) gm/dL Hct 24.1 L (39.0-53.0) % MCV 75.7 L (80.0-100.0) fL MCH 22.0 L (25.0-35.0) pg MCHC 29.0 L (31.0-37.0) g/dL RDW 18.1 H (11.5-15.5) % Lymphocytes # (1.0-4.8) k/uL Lymphocytes # (Manual) 0.70 L (1.0-4.8) k/uL PT (9.0-12.0) sec INR (<1.2) APTT (22.0-30.0) sec BUN 44 H (9-20) mg/dL Creatinine 1.58 H (0.66-1.25) mg/dL Glucose 100 H (74-99) mg/dL Calcium 8.0 L (8.4-10.2) mg/dL Magnesium (1.6-2.3) mg/dL Total Bilirubin 1.5 H (0.2-1.3) mg/dL Total Protein 6.1 L (6.3-8.2) g/dL Albumin 3.4 L (3.5-5.0) g/dL Crossmatch See Detail Thrombosis Risk Factor Assmnt - Choose All That Apply Each Factor Represents 1 point: Swollen legs (current) Other Risk Factors: Yes Each Risk Factor Represents 3 Points: Age 75 years or older Other congenital or acquired thrombophilia - If yes, enter type in comment: No Thrombosis Risk Factor Assessment Total Risk Factor Score: 4 Thrombosis Risk Factor Assessment Level: Moderate Risk
[2022-02-08] MEDS: FUROSEMIDE 10 MG/ML 4 ML VIAL IV SCH ×2 (15:30→21:12)
[2022-02-08] MEDS: APIXABAN 2.5 MG TABLET PO SCH (21:12)
[2022-02-09 08:48] LABS: Anisocytosis Slight; HCT 26.4 % (39.0-53.0); HGB 7.8 gm/dL (13.0-17.5); Hypochromasia Marked; MCH 22.5 pg (25.0-35.0); MCHC 29.5 g/dL (31.0-37.0); MCV 76.4 fL (80.0-100.0); Mean Platelet Volume 11.3; Microcytosis Slight; Platelet Count 219 k/uL (150-450); Poikilocytosis Moderate; RBC 3.45 m/uL (4.30-5.90); RDW 18.4 % (11.5-15.5); WBC 5.6 k/uL (3.8-10.6)
[2022-02-09 08:54] LABS: Calcium 7.9 mg/dL (8.4-10.2); Magnesium 2.4 mg/dL (1.6-2.3); Potassium 3.7 mmol/L (3.5-5.1)
[2022-02-09] MEDS: APIXABAN 2.5 MG TABLET PO SCH ×2 (09:06→20:19)
[2022-02-09] MEDS: FUROSEMIDE 10 MG/ML 4 ML VIAL IV SCH (09:06)
[2022-02-09] MEDS: PARoxetine 20 MG TAB PO SCH (09:06)
--- NOTE | 2022-02-09 10:08 | P.CONS ---
History of Present Illness - Reason for Consult Consult date: 02/09/22 wound care - History of Present Illness This is an 81-year-old gentleman being seen on [address] for history of wounds to the right foot. Patient has no open ulcerations at this time. He does have history of venous insufficiency to bilateral lower extremities with inflammation and previous ulceration. Patient was set up to see Dr. Treviño for a venous workup however due to increased edema and drainage from his right foot the patient came to the emergency room. Patient past medical history significant for atrial fibrillation, coronary artery disease, GI bleed, hypertension, venous insufficiency. Patient denies diabetes. He is a lifelong nonsmoker. Review Of Systems: Constitutional: No fever, no chills, no night sweats. No weight change. No weakness, fatigue or lethargy. No daytime sleepiness. Integumentary:reports wounds, no lesions. No rash or pruritus. No unusual bruising. No change in hair or nails. Physical exam: General Appearance: Alert, cooperative, no distress, appears stated age. Skin: See HPI all other Skin color, texture, tugor normal, no rashes or lesions. Neurologic: Alert oriented x3 Assessment: 1. Chronic venous hypertension with inflammation previous ulceration Plan: 1. Wrap with Erasto wrap bilaterally daily. Patient should follow up with Dr. Treviño upon discharge to complete the venous workup that he previously started prior hospitalization. Thank you for the consultation any questions to contact the wound care center DNP note has been reviewed and discussed with Dr. Savage and the impression and plan of care has been directed as dictated. Past Medical History Past Medical History: Atrial Fibrillation, Coronary Artery Disease (CAD), Chest Pain / Angina, GI Bleed, Hypertension, Osteoarthritis (OA), Vascular Disorder Additional Past Medical History / Comment(s): Arthritis in multiple joints, chronic cervical pain, lower GI bleed, hemorrhoids, benign colon polyps, venouse insufficiency/discoloration bilateral ankles/feet, fluid around L lung after heart surgery with chest tube and now that lung has some scarring. History of Any Multi-Drug Resistant Organisms: None Reported Past Surgical History: Cholecystectomy, Heart Catheterization Additional Past Surgical History / Comment(s): 1988 ASD closure, cardiac cath x2, colonoscopies/benign polypectomies, laparotomy with ventral hernia repair/mesh, bilateral eye cataract removals/lens implants then clouded over and has had L eye lasered. Past Anesthesia/Blood Transfusion Reactions: No Reported Reaction Additional Past Anesthesia/Blood Transfusion Reaction / Comm: Pt states he was slow to wake after last colonoscopy. Past Psychological History: Anxiety Additional Psychological History / Comment(s): OCD. Pt resides with his son, Frank. Pt uses no assistive device. He drives some, son does most of the driving. Smoking Status: Never smoker Past Alcohol Use History: None Reported Additional Past Alcohol Use History / Comment(s): SMOKER AGE 15(1955) quit 1961 was 1/4 ppd and occasional pipe during that time. Past Drug Use History: None Reported - Past Family History Father Family Medical History: Cancer Additional Family Medical History / Comment(s): LUNG CA. FATHER WAS A SMOKER. Sister(s) Family Medical History: Cancer Additional Family Medical History / Comment(s): SKIN CA Mother Family Medical History: Dementia Medications and Allergies Home Medications Medication Instructions Recorded Confirmed Type PARoxetine [Paxil] 20 mg PO DAILY 11/26/13 02/08/22 History Furosemide [Lasix] 40 mg PO DAILY #30 tab 01/04/22 02/08/22 Rx Rivaroxaban [Xarelto] 15 mg PO W/SUPPER 02/08/22 02/08/22 History lisinopriL 2.5 mg PO DAILY PRN 02/08/22 02/08/22 History Allergies Allergy/AdvReac Type Severity Reaction Status Date / Time clindamycin Allergy Rash/Hives/ Verified 02/08/22 09:32 ITCHING dipyridamole Allergy Rash/Hives Verified 02/08/22 09:32 [From Persantine] MED USED FOR CHEMICAL STRESS Allergy Rash/Hives/ Uncoded 02/08/22 09:32 TEST ITCHING Physical Exam Vitals: Vital Signs Temp Pulse Pulse Resp BP Pulse Ox 02/09/22 03:21 98.1 F 87 19 106/63 94 L 02/08/22 23:09 97.9 F 61 16 102/62 93 L 02/08/22 19:32 97.6 F 82 17 113/73 97 02/08/22 17:00 17 02/08/22 16:05 97.5 F L 72 18 119/77 96 02/08/22 14:00 54 L 72 16 Intake and Output 02/08/22 02/09/22 02/09/22 22:59 06:59 14:59 Intake Total 180 Output Total 1489 1939 Balance -1309 Intake: Oral 180 Output: Urine 1489 1939 Other: Voiding Method Urinal Urinal # Voids 1 Weight 83 kg Results CBC & Chem 7: 02/09/22 08:26 02/09/22 08:26 Labs: Abnormal Lab Results - Last 24 Hours (Table) 02/07/22 02/08/22 02/09/22 Range/Units 23:58 04:30 08:26 RBC 3.45 L (4.30-5.90) m/uL Hgb 7.8 L (13.0-17.5) gm/dL Hct 26.4 L (39.0-53.0) % MCV 76.4 L (80.0-100.0) fL MCH 22.5 L (25.0-35.0) pg MCHC 29.5 L (31.0-37.0) g/dL RDW 18.4 H (11.5-15.5) % BUN (9-20) mg/dL Creatinine (0.66-1.25) mg/dL Glucose (74-99) mg/dL Calcium (8.4-10.2) mg/dL Magnesium (1.6-2.3) mg/dL Ferritin 20.2 L (22.0-322.0) ng/mL Crossmatch See Detail 02/09/22 Range/Units 08:26 RBC (4.30-5.90) m/uL Hgb (13.0-17.5) gm/dL Hct (39.0-53.0) % MCV (80.0-100.0) fL MCH (25.0-35.0) pg MCHC (31.0-37.0) g/dL RDW (11.5-15.5) % BUN 43 H (9-20) mg/dL Creatinine 1.78 H (0.66-1.25) mg/dL Glucose 104 H (74-99) mg/dL Calcium 7.9 L (8.4-10.2) mg/dL Magnesium 2.4 H (1.6-2.3) mg/dL Ferritin (22.0-322.0) ng/mL Crossmatch Assessment and Plan (1) Venous insufficiency Current Visit: Yes Status: Acute Code(s): I87.2 - VENOUS INSUFFICIENCY (CHRONIC) (PERIPHERAL) SNOMED Code(s): 54005988
[2022-02-10 03:31] VITALS: RESP 18
[2022-02-10] MEDS: SODIUM CHLORIDE 0.9% 1,000 ML IV SCH (03:53)
--- NOTE | 2022-02-10 05:27 | P.PN ---
Subjective Progress Note Date: 02/09/22 Patient is a pleasant 81-year-old female came in with compensative for bilateral lower extremity swelling orthopnea paroxysmal nocturnal dyspnea and shortness of breath. Patient's symptoms has been progressively getting worse patient does have history of chronic diastolic dysfunction chronic venous insufficiency in bilateral lower extremities. Patient also has history of atrial fibrillation for which patient is on xarelto 50 mg daily which is being switched to eliquis because of poor function. She also has chronic anemia found to have hemoglobin of around 6.7 received 1 unit of PRBC transfusion previous serum iron month of December is extremely low at 12 no ferritin available at this time. Patient follows up with hematology and patient has a scheduled colonoscopy because of unexplained iron deficiency anemia. 02/09/2022 Patient is seen today in follow-up continues on IV Lasix although kidney functions are worsening and will transition to oral lasix and follow up with repeat labs in the am. Swelling and shortness of breath have improved. Lower extremity swelling significantly improved. Patient had a drop in hemoglobin and received 2 units of prbc and hemoglobin is 7.6 today. No active bleeding noted. Patient reports he has recently had a varicose vein that was continuously bleeding of the right lower extremity and has had to come to the er for cautery although patient reports to striking his foot on something at home and had bleeding occur again and attempted to stop the bleeding at home. Noted the dry crusted blood underneath toes. encouraged the patient to increase activity as tolerated. Patient continues to have some swelling noted of the upper thighs that are 1-2+ pitting with some improvement. Patient denies chest pain or shortness of breath. Afebrile. No nausea or vomiting and tolerating diet. Review of systems: Constitutional: No reports of fatigue, fever, or chills Cardiovascular: No reports of chest pain or palpitations Respiratory: No reports of worsening shortness of breath GI: No reports of nausea, vomiting, or diarrhea : No reports of dysuria or retention Neurovascular: No reports of weakness or numbness All medications have been reviewed PHYSICAL EXAMINATION: GENERAL: The patient is alert and oriented x3, not in any acute distress. Well developed, well nourished. HEENT: Pupils are round and equally reacting to light. EOMI. No scleral icterus. No conjunctival pallor. Normocephalic, atraumatic. No pharyngeal erythema. No thyromegaly. CARDIOVASCULAR: S1 and S2 present. No murmurs, rubs, or gallops. PULMONARY: Chest is clear to auscultation, no wheezing or crackles. ABDOMEN: Soft, nontender, nondistended, normoactive bowel sounds. No palpable organomegaly. MUSCULOSKELETAL: No joint swelling or deformity. EXTREMITIES: No cyanosis, clubbing, extensive bilateral lower extremity edema of the upper thighs, chronic venous stasis some cyanosis of the right forefoot chronic venous stasis dermatosis skin breakdown NEUROLOGICAL: Gross neurological examination did not reveal any focal deficits. SKIN: No rashes. Assessment: -Congestive heart failure chronic diastolic dysfunction with acute exacerbation, recent echocardiogram showed EF of 55-60% -Mild acute renal failure on chronic kidney disease stage III -Chronic kidney disease stage III secondary to hypertensive nephrosclerosis baseline creatinine around 1.3 present creatinine 1.7. -Bilateral lower extremely venous stasis with skin breakdown and dermatosis due to chronic venous stasis -Paroxysmal atrial fibrillation, presently rate controlled -DVT prophylaxis: Anti-coagulation as mentioned above -Full code Plan: Recommend to transition to oral lasix due to worsening kidney functions. Follow up with am labs Encouraged increased activity as tolerated. Monitor for any bleeding and watch the hemoglobin as patient has received 2 units this admission, hgb is 7.6 today Encouraged elevating lower extremities while at rest Hold lisinopril Possible discharge in 24 hours The impression and plan of care has been dictated by Patricia Cross, Nurse Practitioner as directed. Dr. Ofelia MD I have performed a history and examination and MDM of this patient, discussed the same with the dictator, and agree with the dictator's assessment and plan as written ,documented as a scribe. Based on total visit time, I have performed more than 50% of the visit. Objective - Vital Signs Vital signs: Vital Signs Temp 98.1 F 02/09/22 03:21 Pulse 87 02/09/22 03:21 Resp 19 02/09/22 03:21 BP 106/63 02/09/22 03:21 Pulse Ox 94 L 02/09/22 03:21 FiO2 Intake & Output 02/08/22 02/09/22 02/09/22 18:59 06:59 18:59 Intake Total 726 Output Total 620 2960 Balance 106 -2960 Weight 83 kg Intake: Oral 416 Blood Product 310 Rc As-1 Unit 310 [id number] Output: Urine 620 2960 Other: Voiding Method Urinal Urinal # Voids 1 1 - Labs CBC & Chem 7: 02/09/22 08:26 02/09/22 08:26 Labs: Abnormal Lab Results - Last 24 Hours (Table) 02/07/22 02/08/22 02/09/22 Range/Units 23:58 04:30 08:26 RBC 3.45 L (4.30-5.90) m/uL Hgb 7.8 L (13.0-17.5) gm/dL Hct 26.4 L (39.0-53.0) % MCV 76.4 L (80.0-100.0) fL MCH 22.5 L (25.0-35.0) pg MCHC 29.5 L (31.0-37.0) g/dL RDW 18.4 H (11.5-15.5) % BUN (9-20) mg/dL Creatinine (0.66-1.25) mg/dL Glucose (74-99) mg/dL Calcium (8.4-10.2) mg/dL Magnesium (1.6-2.3) mg/dL Ferritin 20.2 L (22.0-322.0) ng/mL Crossmatch See Detail 02/09/22 Range/Units 08:26 RBC (4.30-5.90) m/uL Hgb (13.0-17.5) gm/dL Hct (39.0-53.0) % MCV (80.0-100.0) fL MCH (25.0-35.0) pg MCHC (31.0-37.0) g/dL RDW (11.5-15.5) % BUN 43 H (9-20) mg/dL Creatinine 1.78 H (0.66-1.25) mg/dL Glucose 104 H (74-99) mg/dL Calcium 7.9 L (8.4-10.2) mg/dL Magnesium 2.4 H (1.6-2.3) mg/dL Ferritin (22.0-322.0) ng/mL Crossmatch
[2022-02-10] MEDS ORDERED: FUROSEMIDE 40 MG TAB PO SCH (09:00)
[2022-02-10 09:01] LABS: Anisocytosis Slight; Basophils % (A) 1 %; Eosinophils # (A) 0.1 k/uL (0-0.7); Eosinophils % (A) 2 %; HCT 28.1 % (39.0-53.0); HGB 8.2 gm/dL (13.0-17.5); Hypochromasia Marked; Lymphocytes # (A) 0.9 k/uL (1.0-4.8); Lymphocytes % (A) 17 %; MCH 22.6 pg (25.0-35.0); MCHC 29.1 g/dL (31.0-37.0); MCV 77.5 fL (80.0-100.0); Mean Platelet Volume 9.2; Microcytosis Slight; Monocytes # (A) 0.3 k/uL (0-1.0); Monocytes % (A) 7 %; Neutrophils # (A) 3.6 k/uL (1.3-7.7); Neutrophils % (A) 72 %; Platelet Count 246 k/uL (150-450); Poikilocytosis Moderate; RBC 3.62 m/uL (4.30-5.90); WBC 5.1 k/uL (3.8-10.6)
[2022-02-10 09:16] LABS: Calcium 8.2 mg/dL (8.4-10.2); Potassium 4.2 mmol/L (3.5-5.1)
[2022-02-10] MEDS: PARoxetine 20 MG TAB PO SCH (09:24)
[2022-02-10] MEDS: APIXABAN 2.5 MG TABLET PO SCH (09:24)
[2022-02-10 09:27] VITALS: BP 100/61; PULSE 97; TEMP 97.4
--- NOTE | 2022-02-12 14:18 | P.DS ---
Providers Date of admission: 02/07/22 23:31 Expected date of discharge: 02/12/22 Attending physician: Kristian Brink Primary care physician: Darian Jefferson [facility] [place] Course: Final diagnosis -Congestive heart failure chronic diastolic dysfunction with acute exacerbation, recent echocardiogram showed EF of 55-60% -Mild acute renal failure on chronic kidney disease stage III -Chronic kidney disease stage III secondary to hypertensive nephrosclerosis baseline creatinine around 1.3 present creatinine 1.7. -Bilateral lower extremely venous stasis with skin breakdown and dermatosis due to chronic venous stasis -Paroxysmal atrial fibrillation, presently rate controlled -DVT prophylaxis -Full code Discharge disposition Patient is being discharged in a stable condition with guarded prognosis to home. Patient will follow-up with Dr. Jefferson in the outpatient setting upon discharge. Patient is to also follow-up with GI along with Dr. Treviño as scheduled. Patient will continue on lower dose anticoagulant and recommend close outpatient follow-up of kidney functions with repeat labs and prescriptions provided. Total time taken is greater than 35 minutes. Hospital course This is a 81year-old male who was recently admitted with a lateral lower extremity swelling along with dyspnea and worsening shortness of breath that had been ongoing over the last few days. Patient also taking Xarelto which will be switched to eliquis is kidney functions are elevated patient is requiring Lasix. Patient's hemoglobin was also low at 6.7 and received 1 unit with improvement. Patient to follow-up with GI outpatient for further testing of his anemia. Patient also follows with Dr. Treviño vascular surgery and has an upcoming appointment this week and encourage the patient to continue to follow-up with him as scheduled appointment. Encouraged elevating lower extremities while at rest and continuing on current dose of Lasix with recommended outpatient labs in the next 2-3 days and prescription was provided. Patient feeling well and denies further shortness of breath asking when he can go home. Currently no reports of chest pain, shortness of breath, or palpitations. Patient is afebrile. No reports of nausea or vomiting and patient is tolerating diet. Patient will be discharged home today. Physical exam: Gen: This is a 81-year-old male awake, alert and oriented 3, well-developed, well-nourished HEENT: Head is atraumatic, normocephalic. Pupils equal, round. Sclerae is anicteric. NECK: Supple. No JVD. No lymphadenopathy. No thyromegaly. LUNGS: Clear to auscultation. No wheezes or rhonchi. No intercostal ret ractions. HEART: Regular rate and rhythm. No murmur. ABDOMEN: Soft. Bowel sounds are present. No masses. No tenderness. EXTREMITIES: No pedal edema. No calf tenderness. NEUROLOGICAL: Patient is awake, alert and oriented x3. Cranial nerves 2 through 12 are grossly intact. Please refer to medication reconciliation sheet for a list of medications. The impression and plan of care has been dictated by Patricia Cross, Nurse Practitioner as directed. Dr. Ofelia MD I have performed a history and examination and MDM of this patient, discussed the same with the dictator, and agree with the dictator's assessment and plan as written ,documented as a scribe. Based on total visit time, I have performed more than 50% of the visit. Patient Condition at Discharge: Fair Plan - Discharge Summary Discharge Rx Participant: No New Discharge Prescriptions: New Apixaban [Eliquis] 2.5 mg PO BID 30 Days #60 tab Furosemide [Lasix] 60 mg PO BID 30 Days #120 tab Continue PARoxetine [Paxil] 20 mg PO DAILY Furosemide [Lasix] 40 mg PO DAILY #30 tab Discontinued lisinopriL 2.5 mg PO DAILY PRN PRN Reason: Blood Pressure - High Rivaroxaban [Xarelto] 15 mg PO W/SUPPER Discharge Medication List PARoxetine [Paxil] 20 mg PO DAILY 11/26/13 [History] Furosemide [Lasix] 40 mg PO DAILY #30 tab 01/04/22 [Rx] Apixaban [Eliquis] 2.5 mg PO BID 30 Days #60 tab 02/10/22 [Rx] Furosemide [Lasix] 60 mg PO BID 30 Days #120 tab 02/10/22 [Rx] Follow up Appointment(s)/Referral(s): Darian Jefferson DO [Primary Care Provider] - 1-2 days (Office is closed. Please call office Saturday for follow up appointment ) Kennedy Treviño MD [STAFF PHYSICIAN] - 1 Week (keep scheduled appt) Ambulatory/Diagnostic Orders: Complete Blood Count w/diff [LAB.AMB] Time Frame: 3 Days, Location: None Selected Patient Instructions/Handouts: Heart Failure (DC), Weakness (DC), Edema (DC) Activity/Diet/Wound Care/Special Instructions: activity limited until follow up follow up with pcp on discharge keep upcoming scheduled appt with Dr. Treviño Elevate lower extremities while at rest Repeat labs in 2-3 days Continue taking lasix 60mg in the am and 40mg in the evening Discharge Disposition: HOME SELF-CARE
== END 2022-02-10 13:27 | disposition home or self-care (01) | DRG 291 ==
LOC: EC 21:18 → 3SCARD 23:31
PROVIDERS: ADMIT Hospitalist; ATTEND Hospitalist
PROC: 30233N1 Transfusion of Nonautologous Red Blood Cells into Peripheral Vein, Percutaneous Approach (ICD-10-PCS; principal; 2022-02-08)
DX: I13.0 Hypertensive heart and chronic kidney disease with heart failure and stage 1 through stage 4 chronic kidney disease, or unspecified chronic kidney disease (principal); I50.33 Acute on chronic diastolic (congestive) heart failure; N17.9 Acute kidney failure, unspecified; D50.9 Iron deficiency anemia, unspecified; N18.30 Chronic kidney disease, stage 3 unspecified; I48.0 Paroxysmal atrial fibrillation; I95.9 Hypotension, unspecified; I25.10 Atherosclerotic heart disease of native coronary artery without angina pectoris; M19.90 Unspecified osteoarthritis, unspecified site; G89.29 Other chronic pain; M54.2 Cervicalgia; F41.9 Anxiety disorder, unspecified; I87.2 Venous insufficiency (chronic) (peripheral); I83.891 Varicose veins of right lower extremity with other complications; F42.9 Obsessive-compulsive disorder, unspecified; L98.9 Disorder of the skin and subcutaneous tissue, unspecified; K64.9 Unspecified hemorrhoids; K43.9 Ventral hernia without obstruction or gangrene; I87.8 Other specified disorders of veins; Z87.891 Personal history of nicotine dependence; Z79.01 Long term (current) use of anticoagulants; Z79.899 Other long term (current) drug therapy; Z87.19 Personal history of other diseases of the digestive system; Z86.010 Personal history of colon polyps; Z87.74 Personal history of (corrected) congenital malformations of heart and circulatory system; Z88.1 Allergy status to other antibiotic agents; Z88.8 Allergy status to other drugs, medicaments and biological substances
CPT/HCPCS: 36415; 71045; 80048; 80053; 82728; 83735; 83880; 84100; 84443; 84484; 85025; 85027; 85610; 85730; 86850; 86900; 86901; 86920; 93005; 94760; 96374; 99285

== ENCOUNTER 2022-03-14 08:05 | Day surgery (SDC) | payer MEDICARE, OTHER ==
[~2022-03-14 08:05] MED LIST changes: -HEPARIN SODIUM,PORCINE 5,000 UNIT/ML 1 ML VIAL SQ ONE; +LACTATED RINGERS 1,000 ML IV SCH; +LIDOCAINE 1% (10MG/ML) FOR IV START INTRADERMA PRN; -ceFAZolin 2 GM in SODIUM CHLORIDE 0.9% 100 ML IVPB ONE
[2022-03-14 08:28] VITALS: RESP 16; TEMP 97.6
[2022-03-14] MEDS ORDERED: LIDOCAINE 2% INJ 20 MG/ML (2 ML VIAL) ONE (09:02)
[2022-03-14] MEDS ORDERED: PROPOFOL 10 MG/ML 20 ML VIAL IV ONE (09:02)
--- NOTE | 2022-03-14 09:29 | P.PCN ---
Date of Procedure: 03/14/22 Procedure(s) Performed: Brief history: Patient is a pleasant 81-year-old white male scheduled for an elective upper endoscopy as well as colonoscopy as a part of evaluation of evaluation of Iron deficiency anemia and prior history of colon polyps. Last colonoscopy was in 2017 and was noted to have multiple colon polyps. Patient does have history of A. fib and his R and liquids which is on hold for 2 days. Procedure performed: Esophagogastroduodenoscopy with biopsy Colonoscopy with biopsy and snare polypectomy Preoperative diagnosis: Iron deficiency anemia History of multiple colon polyps Anesthesia: MAC Procedure: After informed consent was obtained from the patient was brought into the endos copy unit and IV sedation was administered by anesthesia under continuous monitoring. Initially upper endoscopy was done. The Olympus GF 160 video endoscope was inserted inserted into the mouth and esophagus intubated without any difficulty and was gradually advanced into the stomach and duodenum and carefully examined. The bulb and second part of the duodenum appeared normal. Biopsies were done from the duodenum to rule out celiac disease. The scope was then withdrawn into the stomach adequately insufflated with air and upon careful examination the antrum had patchy areas of erythema which was biopsied. Mucosa of the body, cardia and fundus appeared normal. The scope was then withdrawn into the esophagus. The GE junction was located at 40 cm to the incisors. It appeared irregular with no erythema erosions or ulcerations. Rest of the esophagus appeared normal. Patient tolerated the procedure well. At this time the patient continued to remain sedation. Initial digital rectal examination was normal. Olympus CF 160 video colonoscope was then inserted into the rectum and gradually advanced to the cecum without any difficulty. Careful examination was performed as the scope was gradually being withdrawn. The prep was excellent. The cecum, appeared normal. In the ascending colon there were 4 polyps measuring between 5 mm in size that was removed by cold biopsy. In the transverse colon there were 3 polyps measuring between 4-5 mm in size removed by snare polypectomy. Rest of the ascending colon, transverse colon, descending colon appeared normal. Scattered sigmoid diverticulosis seen. There were patchy areas of erythema noted in the sigmoid colon extending from 25-35 cm from the incisors and biopsies were done from this area. Rest of the, sigmoid colon and rectum appeared normal. Retroflexion was performed in the rectum and no lesions were noted. Patient tolerated the procedure well. Impression: 1. Upper endoscopy revealed mild antral gastritis but no evidence of esophagitis or peptic ulcer disease or angiectasia 2. Colonoscopy revealed: a) 3 mm to 5 mm 4 ascending colon polyp status post polypectomy b) 5 mm sessile transverse colon polyp status post polypectomy c) patchy areas of erythema in the sigmoid colon extending from 25-35 cm from the anal verge status post multiple biopsies d) scattered sigmoid diverticulosis Recommendations: Findings of this examination were discussed with the patient as well as his family. He was advised to follow with the biopsy results. He was advised to resume leliquis today.
[2022-03-14 09:49] VITALS: BP 111/74; PULSE 90
== END 2022-03-14 10:31 | disposition home or self-care (01) ==
LOC: ORWHC2ENDO 08:05
PROVIDERS: ATTEND Internal Medicine Gastroenterology
DX: Z12.11 Encounter for screening for malignant neoplasm of colon (principal); D12.2 Benign neoplasm of ascending colon; D12.3 Benign neoplasm of transverse colon; D50.9 Iron deficiency anemia, unspecified; K29.50 Unspecified chronic gastritis without bleeding; K57.30 Diverticulosis of large intestine without perforation or abscess without bleeding; I25.10 Atherosclerotic heart disease of native coronary artery without angina pectoris; I10 Essential (primary) hypertension; I48.91 Unspecified atrial fibrillation; F41.9 Anxiety disorder, unspecified; F32.A Depression, unspecified; Z86.010 Personal history of colon polyps; Z88.8 Allergy status to other drugs, medicaments and biological substances; Z79.899 Other long term (current) drug therapy
CPT/HCPCS: 45380; 45385; 43239; J2704; J2001; 88305

== ENCOUNTER 2022-03-23 14:09 | Inpatient (IN) | payer MEDICARE ==
--- NOTE | 2022-03-23 15:07 | ED ---
SOB HPI - General Source: patient, RN notes reviewed, old records reviewed Mode of arrival: ambulatory Limitations: no limitations - History of Present Illness MD Complaint: shortness of breath -: days(s) (1) Severity scale (1-10): 0 Known History Of: congestive heart failure Context: occurred during exertion Associated Symptoms: lower abdominal swelling, other (Swelling of the hands and feet) <Donn Owens - Last Filed: 03/23/22 16:37> <Gustavo Tim - Last Filed: 03/23/22 22:02> - General Chief Complaint: Shortness of Breath Stated Complaint: JASON, edema Time Seen by Provider: 03/23/22 14:52 - History of Present Illness Initial Comments: Patient presents with shortness of breath that started last night that is worse with exertion or lying flat. He states that he woke up with his hands and feet swollen and edematous. Also having abdominal swelling. Denies any chest pain. Does have a history of congestive heart failure. (Donn Owens) - Related Data Home Medications Medication Instructions Recorded Confirmed PARoxetine [Paxil] 20 mg PO DAILY 11/26/13 03/23/22 Furosemide [Lasix] 40 mg PO BID 03/12/22 03/23/22 Previous Rx's Medication Instructions Recorded Apixaban [Eliquis] 2.5 mg PO BID 30 Days #60 tab 02/10/22 Allergies Allergy/AdvReac Type Severity Reaction Status Date / Time clindamycin Allergy Rash/Hives/ Verified 03/23/22 17:10 ITCHING dipyridamole Allergy Rash/Hives Verified 03/23/22 17:10 [From Persantine] MED USED FOR CHEMICAL STRESS Allergy Rash/Hives/ Uncoded 03/23/22 17:10 TEST ITCHING Review of Systems ROS Other: All systems not noted in ROS Statement are negative. <Donn Owens - Last Filed: 03/23/22 16:37> ROS Other: All systems not noted in ROS Statement are negative. <Gustavo Tim - Last Filed: 03/23/22 22:02> ROS Statement: Those systems with pertinent positive or pertinent negative responses have been documented in the HPI. Past Medical History Past Medical History: Atrial Fibrillation, Coronary Artery Disease (CAD), Chest Pain / Angina, GI Bleed, Hypertension, Osteoarthritis (OA), Vascular Disorder Additional Past Medical History / Comment(s): Arthritis in multiple joints, chronic cervical pain, lower GI bleed, hemorrhoids, benign colon polyps, venouse insufficiency/discoloration bilateral ankles/feet, fluid around L lung after heart surgery with chest tube and now that lung has some scarring. History of Any Multi-Drug Resistant Organisms: None Reported Past Surgical History: Cholecystectomy, Heart Catheterization Additional Past Surgical History / Comment(s): 1988 ASD closure, cardiac cath x2, colonoscopies/benign polypectomies, laparotomy with ventral hernia repair/mesh, bilateral eye cataract removals/lens implants then clouded over and has had L eye lasered. Past Anesthesia/Blood Transfusion Reactions: No Reported Reaction Additional Past Anesthesia/Blood Transfusion Reaction / Comment(s): Pt states he was slow to wake after last colonoscopy. Past Psychological History: Anxiety Smoking Status: Never smoker Past Alcohol Use History: None Reported Past Drug Use History: None Reported - Past Family History Father Family Medical History: Cancer Additional Family Medical History / Comment(s): LUNG CA. FATHER WAS A SMOKER. Sister(s) Family Medical History: Cancer Additional Family Medical History / Comment(s): SKIN CA Mother Family Medical History: Dementia <Donn Owens - Last Filed: 03/23/22 16:37> General Exam Limitations: no limitations General appearance: alert, in no apparent distress Head exam: Present: atraumatic Eye exam: Absent: scleral icterus, conjunctival injection, periorbital swelling ENT exam: Present: mucous membranes moist Neck exam: Absent: tenderness, meningismus Respiratory exam: Present: rales (bases). Absent: respiratory distress, wheezes, rhonchi, stridor, chest wall tenderness, accessory muscle use Cardiovascular Exam: Present: regular rate, irregular rhythm GI/Abdominal exam: Present: soft, other (Edematous/anasarca) Extremities exam: Present: pedal edema, calf tenderness (Bilateral), other ( Bilateral mid forearms and hands swollen) Back exam: Absent: tenderness, CVA tenderness (R), CVA tenderness (L), paraspinal tenderness, vertebral tenderness, rash noted Neurological exam: Present: alert, oriented X3 Psychiatric exam: Present: normal affect, normal mood Skin exam: Present: warm, dry, normal color. Absent: cyanosis, diaphoretic, petechiae, pallor <Riske,Donn - Last Filed: 03/23/22 16:37> Course Vital Signs 03/23/22 03/23/22 03/23/22 14:37 16:30 19:01 Temperature 97 F L Pulse Rate 83 94 102 H Respiratory 18 18 20 Rate Blood Pressure 114/98 116/92 127/94 O2 Sat by Pulse 98 96 97 Oximetry 03/23/22 21:00 Temperature 98 F Pulse Rate 85 Respiratory 20 Rate Blood Pressure 135/68 O2 Sat by Pulse 95 Oximetry Medical Decision Making - Lab Data Result diagrams: 03/23/22 15:56 - EKG Data -: EKG Interpreted by Me (atrial fibrillation with a ventricular rate of 98, QRS 0.138, QTc 0.490) <Donn Owens - Last Filed: 03/23/22 16:37> - Lab Data Result diagrams: 03/23/22 15:56 03/23/22 15:56 - EKG Data -: EKG Interpreted by Me <Gustavo Tim - Last Filed: 03/23/22 22:02> - Medical Decision Making Case signed out to Dr. Tim pending labs, likely admission for exacerbation of congestive heart failure. (Donn Owens) Was pt. sent in by a medical professional or institution? @ -No Did you speak to anyone other than the patient for history? @ -No Did you review nursing and triage notes? @ -Yes, I agree. Were old charts reviewed? @ -Previous admissions, records. Differential Diagnosis? @ -Differential Dyspnea: Coronary syndrome, arrhythmia, tamponade, asthma, COPD, pulmonary embolism, pneu monia, pneumothorax, pulmonary effusion, anaphylaxis, diabetic ketoacidosis, flailed chest, pulmonary contusion, diaphragmatic rupture, anemia, neuromuscular, this is not meant to be an all-inclusive list. EKG interpreted by me (3pts min.)? @ -Yes. See note. X-rays interpreted by me (1pt min.)? @ -Yes. Chest x-ray shows bilateral pulmonary edema concerning for CHF. CT interpreted by me (1pt min.)? @ -none U/S interpreted by me (1pt. min.)? @ -none What testing was considered but not performed? (CT, X-rays, U/S, labs)? Why? @No. What meds were considered but not given? Why? @ -none Did you discuss the management of the patient with other professionals? @ -No. Did you reconcile home meds? @ -Yes. Was smoking cessation discussed for >3mins.? @ -none Was critical care preformed (if so, how long)? @ -none Were there social determinants of health that impacted care today? How? (Homelessness, low income, unemployed, alcoholism, drug addiction, transportation, low edu. Level, literacy, decrease access to med. care, detention, rehab)? @ -None. Was there de-escalation of care discussed even if they declined? (Discuss DNR or withdrawal of care, Hospice)? @ -None. What co-morbidities impacted this encounter? (DM, HTN, Smoking, COPD, CAD, Cancer, CVA, Hep., AIDS, mental health diagnosis, sleep apnea, morbid obesity)? @ -CHF, CAD, atrial fibrillation Was patient admitted / discharged? @ -Based on the patient's presentation and physical exam, I was concerned for CHF exacerbation. Was initially evaluated by mid-level provider Donn who started the workup. I followed up on chest x-ray, EKG, laboratory studies. Patient has orthopnea, as well as worsening bilateral lower extremity edema. He has exertional dyspnea. Not hypoxic on room air. Vital signs are within acceptable limits. EKG showed no signs of acute ischemia, chronic atrial fibrillation. Chest x-ray as interpreted by myself revealed the bilateral pulmonary edema concerning for CHF. Laboratory studies returned remarkable for a chronic microcytic anemia with a hemoglobin of 10.7 which is stable. Troponin is undetectable. BNP is elevated to 7700. I discussed the results with the patient. It appears he is having heart Exacerbation. He expressed understanding. He was started on IV Lasix. Echo was ordered, cardiology was consulted. He'll be admitted to the hospital. He was in agreement this plan. Patient is normally admitted under Dr. Brink who is being covered by [facility]. I talked with Dr. Maher who accepted the admission was in agreement with this plan. Undiagnosed new problem with uncertain prognosis? @ -no Drug Therapy requiring intensive monitoring for toxicity (Heparin, Nitro, Insulin, Cardizem)? @ -none Were any procedures done? @ -none Diagnosis/symptom? @ -Acute CHF exacerbation Acute, or Chronic, or Acute on Chronic? @ -Acute on chronic Uncomplicated (without systemic symptoms) or Complicated (systemic symptoms)? @ -Complicated Side effects of treatment? @ -none Exacerbation, Progression, or Severe Exacerbation] @ -no Poses a threat to life or bodily function? @ -no (Gustavo Tim) - Lab Data Lab Results 03/23/22 03/23/22 03/23/22 Range/Units 15:56 15:56 15:56 WBC 5.0 (3.8-10.6) k/uL RBC 4.57 (4.30-5.90) m/uL Hgb 10.7 L (13.0-17.5) gm/dL Hct 36.2 L (39.0-53.0) % MCV 79.2 L (80.0-100.0) fL MCH 23.4 L (25.0-35.0) pg MCHC 29.6 L (31.0-37.0) g/dL RDW 27.0 H (11.5-15.5) % Plt Count 197 (150-450) k/uL MPV 10.1 Neutrophils % (Manual) 82 % Lymphocytes % (Manual) 11 % Monocytes % (Manual) 5 % Eosinophils % (Manual) 2 % Neutrophils # (Manual) 4.10 (1.3-7.7) k/uL Lymphocytes # (Manual) 0.55 L (1.0-4.8) k/uL Monocytes # (Manual) 0.25 (0-1.0) k/uL Eosinophils # (Manual) 0.10 (0-0.7) k/uL Nucleated RBCs 0 (0-0) /100 WBC Manual Slide Review Performed Hypochromasia Marked Poikilocytosis (manual Present Anisocytosis Marked Microcytosis Marked Target Cells Present PT 14.3 H (9.0-12.0) sec INR 1.4 H (<1.2) APTT 29.9 (22.0-30.0) sec Sodium 137 (137-145) mmol/L Potassium 4.1 (3.5-5.1) mmol/L Chloride 102 (98-107) mmol/L Carbon Dioxide 25 (22-30) mmol/L Anion Gap 10 mmol/L BUN 52 H (9-20) mg/dL Creatinine 1.77 H (0.66-1.25) mg/dL Est GFR (CKD-EPI)AfAm 40 (>60 ml/min/1.73 sqM) Est GFR (CKD-EPI)NonAf 35 (>60 ml/min/1.73 sqM) Glucose 84 (74-99) mg/dL Calcium 8.6 (8.4-10.2) mg/dL Magnesium 2.4 H (1.6-2.3) mg/dL Total Bilirubin 2.6 H (0.2-1.3) mg/dL AST 37 (17-59) U/L ALT 17 (4-49) U/L Alkaline Phosphatase 130 H (38-126) U/L Troponin I (0.000-0.034) ng/mL NT-Pro-B Natriuret Pep pg/mL Total Protein 7.0 (6.3-8.2) g/dL Albumin 3.6 (3.5-5.0) g/dL 03/23/22 03/23/22 Range/Units 15:56 15:56 WBC (3.8-10.6) k/uL RBC (4.30-5.90) m/uL Hgb (13.0-17.5) gm/dL Hct (39.0-53.0) % MCV (80.0-100.0) fL MCH (25.0-35.0) pg MCHC (31.0-37.0) g/dL RDW (11.5-15.5) % Plt Count (150-450) k/uL MPV Neutrophils % (Manual) % Lymphocytes % (Manual) % Monocytes % (Manual) % Eosinophils % (Manual) % Neutrophils # (Manual) (1.3-7.7) k/uL Lymphocytes # (Manual) (1.0-4.8) k/uL Monocytes # (Manual) (0-1.0) k/uL Eosinophils # (Manual) (0-0.7) k/uL Nucleated RBCs (0-0) /100 WBC Manual Slide Review Hypochromasia Poikilocytosis (manual Anisocytosis Microcytosis Target Cells PT (9.0-12.0) sec INR (<1.2) APTT (22.0-30.0) sec Sodium (137-145) mmol/L Potassium (3.5-5.1) mmol/L Chloride (98-107) mmol/L Carbon Dioxide (22-30) mmol/L Anion Gap mmol/L BUN (9-20) mg/dL Creatinine (0.66-1.25) mg/dL Est GFR (CKD-EPI)AfAm (>60 ml/min/1.73 sqM) Est GFR (CKD-EPI)NonAf (>60 ml/min/1.73 sqM) Glucose (74-99) mg/dL Calcium (8.4-10.2) mg/dL Magnesium (1.6-2.3) mg/dL Total Bilirubin (0.2-1.3) mg/dL AST (17-59) U/L ALT (4-49) U/L Alkaline Phosphatase (38-126) U/L Troponin I <0.012 (0.000-0.034) ng/mL NT-Pro-B Natriuret Pep 7710 pg/mL Total Protein (6.3-8.2) g/dL Albumin (3.5-5.0) g/dL - EKG Data EKG Comments: 12-lead Electrocardiogram Interpretation Note EKG was reviewed and interpreted by myself. 12-lead ECG performed at 1430 is interpreted by me as revealing atrial fibrillation with multiple PVCs. At a rate of 98 beats per minute. [place] is normal. QRS duration is 138 ms, QTc is 490 ms.. There were no ST or T wave abnormalities to suggest myocardial ischem ia or injury. R wave progression across the precordium was satisfactory. By my interpretation this EKG is non-diagnostic for acute ischemia. When compared with EKG from January 2022, no significant change. (Gustavo Tim) Disposition <Donn Owens - Last Filed: 03/23/22 16:37> Time of Disposition: 17:50 <Gustavo Tim - Last Filed: 03/23/22 22:02> Clinical Impression: CHF exacerbation Disposition: ADMITTED IP TO THIS HOSP Condition: Stable
[2022-03-23] MEDS ORDERED: FUROSEMIDE 10 MG/ML 4 ML VIAL IV STA (15:08)
--- NOTE | 2022-03-23 16:16 | XR ---
EXAMINATION TYPE: XR chest 2V DATE OF EXAM: 03/23/2022 COMPARISON: 02/08/2022, 02/07/2022, 01/24/2022, 06/29/2021 HISTORY: Difficulty breathing TECHNIQUE: Frontal and lateral views of the chest are obtained. FINDINGS: Median sternotomy postsurgical changes. Enlarged heart with patchy perihilar and basilar o pacities, as well as pulmonary vascular congestion and bilateral pleural effusions. There are degener ative changes of the spine and a chronic midthoracic vertebral body compression fracture IMPRESSION: CHF
[2022-03-23 16:20] LABS: Albumin 3.6 g/dL (3.5-5.0); Calcium 8.6 mg/dL (8.4-10.2); Magnesium 2.4 mg/dL (1.6-2.3); Potassium 4.1 mmol/L (3.5-5.1); Total Bilirubin 2.6 mg/dL (0.2-1.3)
[2022-03-23 16:28] LABS: INR 1.4 (<1.2); Partial Thromboplastin Time 29.9 sec (22.0-30.0); Prothrombin Time 14.3 sec (9.0-12.0)
[2022-03-23 16:42] LABS: Anisocytosis Marked; HCT 36.2 % (39.0-53.0); HGB 10.7 gm/dL (13.0-17.5); Hypochromasia Marked; MCH 23.4 pg (25.0-35.0); MCHC 29.6 g/dL (31.0-37.0); MCV 79.2 fL (80.0-100.0); Mean Platelet Volume 10.1; Microcytosis Marked; Platelet Count 197 k/uL (150-450); RBC 4.57 m/uL (4.30-5.90)
[2022-03-23] MEDS ORDERED: NALOXONE 0.4 MG/ML 1 ML VIAL IV PRN (18:06)
[2022-03-23 18:54] LABS: Lymphocytes # (M) 0.55 k/uL (1.0-4.8); Monocytes # (M) 0.25 k/uL (0-1.0); Neutrophils % (M) 82 %; Nucleated Red Blood Cells 0 /100 WBC (0-0); Target Cells Present; Total Cells Counted 100
[2022-03-23 18:55] LABS: Poikilocytosis (M) Present
[2022-03-23] MEDS ORDERED: HEPARIN SODIUM,PORCINE/PF 5,000 UNIT/0.5 ML SYRINGE SQ SCH (21:00)
[2022-03-23] MEDS: APIXABAN 2.5 MG TABLET PO SCH (22:35)
[2022-03-23] MEDS: FUROSEMIDE 10 MG/ML 4 ML VIAL IV SCH (23:14)
--- NOTE | 2022-03-24 02:26 | P.HPIM ---
History of Present Illness H&P Date: 03/23/22 The patient is an 81-year-old male with a PMH of diastolic CHF, chronic kidney disease stage III, paroxysmal A. fib on Eliquis, and chronic venous stasis of bilateral lower extremities presented to the emergency room with complaints of shortness of breath and lower extremity edema. Patient reports that he woke up this morning with the above symptoms, and when his visiting home nurse came to evaluate him, she advised him to go to the emergency room. He reports compliance with his dietary fluid restriction as well as his Lasix. Reports that his symptoms are similar to his prior episodes and CHF exacerbations. Upon presentation, BP was 114/98, pulse 83, respiratory rate 18, and SpO2 98% on room air. Laboratory evaluation was remarkable for hemoglobin proBNP 7710, troponin 0 point 10.7, creatinine 1.77 up from baseline of 1.5 from last month, with total bilirubin 2.6 slightly elevated from baseline with troponin. EKG revealed A. fib with PVCs and a right bundle-branch block at 98 bpm as reviewed by me. Chest x-ray was consistent with congestive heart failure. Review of systems: Pertinent positives and negatives as discussed in HPI, a complete review of systems was performed and all other systems are negative. Physical examination: General: non toxic, no distress, appears at stated age Derm: Bilateral lower extremity venous stasis dermatitis with dressings in place and left anterior curtis abrasions noted, warm Head: atraumatic, normocephalic, symmetric Eyes: EOMI, no lid lag, anicteric sclera, pupils equal round reactive to light ENT: Nose and ears atraumatic Neck: No cervical lymphadenopathy, trachea midline, supple Mouth: no lip lesion, mucus membranes moist Cardiovascular: S1S2 reg, no murmur, positive dorsalis pedis pulse bilateral, no edema Lungs: Bibasilar rales without rhonchi or wheezing, no accessory muscle use Abdominal: soft, nontender to palpation, no guarding Ext: muscle strength 5 out of 5 in all 4 extremities grossly, no gross muscle atrophy, no contractures, Neuro: CN II-XI grossly intact, no gross focal neuro deficits Psych: Alert, oriented, appropriate affect Assessment/plan Acute diastolic CHF exacerbation -Consult cardiology -Continue with Lasix IV every 12 hourly -Echocardiogram -Monitor electrolytes -Intake and output -Daily weights DARIELA on chronic kidney disease -Monitor BMP DVT prophylaxis -Eliquis The patient is admitted with an anticipated greater than 2 midnight stay for evaluation of acute CHF exacerbation CODE STATUS: Full Code Discussed with: Patient Anticipated discharge date: 2-[address]: Home Past Medical History Past Medical History: Atrial Fibrillation, Coronary Artery Disease (CAD), Chest Pain / Angina, GI Bleed, Hypertension, Osteoarthritis (OA), Vascular Disorder Additional Past Medical History / Comment(s): Arthritis in multiple joints, chronic cervical pain, lower GI bleed, hemorrhoids, benign colon polyps, venouse insufficiency/discoloration bilateral ankles/feet, fluid around L lung after heart surgery with chest tube and now that lung has some scarring. History of Any Multi-Drug Resistant Organisms: None Reported Past Surgical History: Cholecystectomy, Heart Catheterization Additional Past Surgical History / Comment(s): 1987 ASD closure, cardiac cath x2, colonoscopies/benign polypectomies, laparotomy with ventral hernia repair/mesh, bilateral eye cataract removals/lens implants then clouded over and has had L eye lasered. Past Anesthesia/Blood Transfusion Reactions: No Reported Reaction Additional Past Anesthesia/Blood Transfusion Reaction / Comment(s): Pt states he was slow to wake after last colonoscopy. Past Psychological History: Anxiety Smoking Status: Never smoker Past Alcohol Use History: None Reported Past Drug Use History: None Reported - Past Family History Father Family Medical History: Cancer Additional Family Medical History / Comment(s): LUNG CA. FATHER WAS A SMOKER. Sister(s) Family Medical History: Cancer Additional Family Medical History / Comment(s): SKIN CA Mother Family Medical History: Dementia Medications and Allergies Home Medications Medication Instructions Recorded Confirmed Type PARoxetine [Paxil] 20 mg PO DAILY 11/26/13 03/23/22 History Apixaban [Eliquis] 2.5 mg PO BID 30 Days #60 tab 02/10/22 03/23/22 Rx Furosemide [Lasix] 40 mg PO BID 03/12/22 03/23/22 History Allergies Allergy/AdvReac Type Severity Reaction Status Date / Time clindamycin Allergy Rash/Hives/ Verified 03/23/22 17:10 ITCHING dipyridamole Allergy Rash/Hives Verified 03/23/22 17:10 [From Persantine] MED USED FOR CHEMICAL STRESS Allergy Rash/Hives/ Uncoded 03/23/22 17:10 TEST ITCHING Physical Exam Vitals: Vital Signs Temp Pulse Resp BP Pulse Ox 03/23/22 21:00 98 F 85 20 135/68 95 03/23/22 19:01 102 H 20 127/94 97 03/23/22 16:30 94 18 116/92 96 03/23/22 14:37 97 F L 83 18 114/98 98 Intake and Output 03/23/22 03/23/22 03/23/22 06:59 14:59 22:59 Other: Weight 83.915 kg Results CBC & Chem 7: 03/23/22 15:56 03/23/22 15:56 Labs: Abnormal Lab Results - Last 24 Hours (Table) 03/23/22 03/23/22 03/23/22 Range/Units 15:56 15:56 15:56 Hgb 10.7 L (13.0-17.5) gm/dL Hct 36.2 L (39.0-53.0) % MCV 79.2 L (80.0-100.0) fL MCH 23.4 L (25.0-35.0) pg MCHC 29.6 L (31.0-37.0) g/dL RDW 27.0 H (11.5-15.5) % Lymphocytes # (Manual) 0.55 L (1.0-4.8) k/uL PT 14.3 H (9.0-12.0) sec INR 1.4 H (<1.2) BUN 52 H (9-20) mg/dL Creatinine 1.77 H (0.66-1.25) mg/dL Magnesium 2.4 H (1.6-2.3) mg/dL Total Bilirubin 2.6 H (0.2-1.3) mg/dL Alkaline Phosphatase 130 H (38-126) U/L
[2022-03-24] MEDS ORDERED: FUROSEMIDE 10 MG/ML 10 ML VIAL IV STA (06:46)
[2022-03-24] MEDS ORDERED: DEXTROSE 5% IN WATER 100 ML with AMIODARONE 150 MG IV ONE (07:10)
[2022-03-24] MEDS ORDERED: AMIODARONE 360 MG in DEXTROSE 5% IN WATER 200 ML IV ONE ×2 (07:20)
[2022-03-24] MEDS ORDERED: DEXTROSE 5% IN WATER 250 ML with AMIODARONE 300 MG IV ONE (07:20)
--- NOTE | 2022-03-24 07:50 | P.CRDCN ---
History of Present Illness Consult date: 03/24/22 Chief complaint: Shortness of breath and bilateral lower extremity edema History of present illness: The patient is a pleasant 81-year-old gentleman with a past medical history significant for heart failure with preserved ejection fraction and permanent atrial fibrillation as well as hypertension and dyslipidemia and mitral regurgitation known to be severe as well as history of atrial septal repair in the past presented to the hospital complaining of increasing shortness of breath and also bilateral lower extremity edema. He stated that he has been compliant with his medications as well as compliant with his diet. He has been experienc ing progressive upper and lower extremities edema beside the shortness of breath. No symptoms of chest pain or chest discomfort and no dizziness or lightheadedness and no feeling of heart racing or fluttering or presyncope or syncope. Further investigation was performed including EKG showed atrial fibrillation with runs of nonsustained ventricular tachycardia. His electrolytes are within normal limits including the sodium and potassium. No magnesium was thrown. The chest x-ray showed evidence of pulmonary vascular congestion to the patient wasn't started on Lasix IV. No recent echocardiogram. The last echo was from 2019 revealed normal biventricular systolic function with evidence of moderate mitral regurgitation and moderate tricuspid regurgitation and moderate pulmonary hypertension. We are in process of getting an echocardiogram on him at this point. Past Medical History Past Medical History: Atrial Fibrillation, Coronary Artery Disease (CAD), Chest Pain / Angina, GI Bleed, Hypertension, Osteoarthritis (OA), Vascular Disorder Additional Past Medical History / Comment(s): Arthritis in multiple joints, nurses director jeannette cervical pain, lower GI bleed, hemorrhoids, benign colon polyps, venouse insufficiency/discoloration bilateral ankles/feet, fluid around L lung after heart surgery with chest tube and now that lung has some scarring. History of Any Multi-Drug Resistant Organisms: None Reported Past Surgical History: Cholecystectomy, Heart Catheterization Additional Past Surgical History / Comment(s): 1988 ASD closure, cardiac cath x2, colonoscopies/benign polypectomies, laparotomy with ventral hernia repair/mesh, bilateral eye cataract removals/lens implants then clouded over and has had L eye lasered. Past Anesthesia/Blood Transfusion Reactions: No Reported Reaction Additional Past Anesthesia/Blood Transfusion Reaction / Comment(s): Pt states he was slow to wake after last colonoscopy. Past Psychological History: Anxiety Smoking Status: Never smoker Past Alcohol Use History: None Reported Past Drug Use History: None Reported - Past Family History Father Family Medical History: Cancer Additional Family Medical History / Comment(s): LUNG CA. FATHER WAS A SMOKER. Sister(s) Family Medical History: Cancer Additional Family Medical History / Comment(s): SKIN CA Mother Family Medical History: Dementia Medications and Allergies Home Medications Medication Instructions Recorded Confirmed Type PARoxetine [Paxil] 20 mg PO DAILY 11/26/13 03/23/22 History Apixaban [Eliquis] 2.5 mg PO BID 30 Days #60 tab 02/10/22 03/23/22 Rx Furosemide [Lasix] 40 mg PO BID 03/12/22 03/23/22 History Allergies Allergy/AdvReac Type Severity Reaction Status Date / Time clindamycin Allergy Rash/Hives/ Verified 03/23/22 17:10 ITCHING dipyridamole Allergy Rash/Hives Verified 03/23/22 17:10 [From Persantine] MED USED FOR CHEMICAL STRESS Allergy Rash/Hives/ Uncoded 03/23/22 17:10 TEST ITCHING Physical Exam Vitals: Vital Signs Temp Pulse Resp BP Pulse Ox 03/24/22 07:00 79 22 114/77 90 L 03/24/22 06:00 93 24 101/75 80 L 03/24/22 05:00 84 20 115/84 92 L 03/24/22 04:00 103 H 18 122/50 92 L 03/24/22 03:00 97 F L 92 18 120/45 90 L 03/24/22 01:05 90 16 108/80 96 03/23/22 23:17 98.2 F 90 18 101/71 95 03/23/22 21:00 98 F 85 20 135/68 95 03/23/22 19:01 102 H 20 127/94 97 03/23/22 16:30 94 18 116/92 96 03/23/22 14:37 97 F L 83 18 114/98 98 Intake and Output 03/23/22 03/24/22 03/24/22 22:59 06:59 14:59 Output Total 300 Balance -300 Output: Urine 300 - Constitutional General appearance: no acute distress - Respiratory Respiratory: bilateral: diminished - Cardiovascular Rhythm: irregularly irregular Heart sounds: normal: S1, S2 Abnormal Heart Sounds: systolic murmur Results 03/23/22 15:56 03/23/22 15:56 Cardiac Enzymes 03/23/22 03/23/22 Range/Units 15:56 15:56 AST 37 (17-59) U/L Troponin I <0.012 (0.000-0.034) ng/mL Coagulation 03/23/22 Range/Units 15:56 PT 14.3 H (9.0-12.0) sec APTT 29.9 (22.0-30.0) sec CBC 03/23/22 Range/Units 15:56 WBC 5.0 (3.8-10.6) k/uL RBC 4.57 (4.30-5.90) m/uL Hgb 10.7 L (13.0-17.5) gm/dL Hct 36.2 L (39.0-53.0) % Plt Count 197 (150-450) k/uL Comprehensive Metabolic Panel 03/23/22 Range/Units 15:56 Sodium 137 (137-145) mmol/L Potassium 4.1 (3.5-5.1) mmol/L Chloride 102 (98-107) mmol/L Carbon Dioxide 25 (22-30) mmol/L BUN 52 H (9-20) mg/dL Creatinine 1.77 H (0.66-1.25) mg/dL Glucose 84 (74-99) mg/dL Calcium 8.6 (8.4-10.2) mg/dL AST 37 (17-59) U/L ALT 17 (4-49) U/L Alkaline Phosphatase 130 H (38-126) U/L Total Protein 7.0 (6.3-8.2) g/dL Albumin 3.6 (3.5-5.0) g/dL Current Medications Generic Name Dose Route Start Last Admin Trade Name Freq PRN Reason Stop Dose Admin Apixaban 2.5 mg 03/23/22 21:00 03/23/22 22:35 Apixaban 2.5 Mg Tablet PO 2.5 mg BID YURIY Administration Protocol Furosemide 40 mg 03/23/22 23:00 03/23/22 23:14 Furosemide 10 Mg/Ml 4 Ml Vial IV 40 mg Q12HR YURIY Administration Amiodarone HCl 360 mg/ 200 mls @ 33.333 mls/hr 03/24/22 07:20 03/24/22 07:23 Dextrose/Water IV 03/24/22 13:19 1 mg/min .Q6H ONE 33.333 mls/hr Administration Protocol 1 MG/MIN Amiodarone HCl 450 mg/ 250 mls @ 16.667 mls/hr 03/24/22 13:20 Dextrose/Water IV 03/25/22 07:19 .Q15H YURIY Protocol 0.5 MG/MIN Naloxone HCl 0.2 mg 03/23/22 18:06 Naloxone 0.4 Mg/Ml 1 Ml Vial IV Q2M PRN Opioid Reversal Paroxetine HCl 20 mg 03/24/22 09:00 Paroxetine 20 Mg Tab PO DAILY YURIY Intake and Output 03/23/22 03/24/22 03/24/22 22:59 06:59 14:59 Output Total 300 Balance -300 Output: Urine 300 03/23/22 15:56 03/23/22 15:56 Assessment and Plan Assessment: Assessment Heart failure exacerbation secondary to heart failure with preserved ejection fraction Atrial fibrillation with overall controlled heart rate Nonsustained ventricular tachycardia Valvular heart disease with severe MR History of surgical atrial septal defect repair Multiple comorbid conditions Plan Continue Lasix IV Continue monitor the kidney function and electrolytes Obtain an echocardiogram was Doppler Obtain magnesium Start the patient on Toprol-XL Follow-up with the patient
[2022-03-24 08:27] LABS: Calcium 8.4 mg/dL (8.4-10.2); Magnesium 2.4 mg/dL (1.6-2.3); Potassium 3.7 mmol/L (3.5-5.1)
[2022-03-24 08:39] LABS: Anisocytosis Marked; Basophils % (A) 1 %; Eosinophils % (A) 1 %; HCT 37.2 % (39.0-53.0); HGB 10.7 gm/dL (13.0-17.5); Hypochromasia Marked; Lymphocytes # (A) 0.6 k/uL (1.0-4.8); Lymphocytes % (A) 12 %; MCH 23.4 pg (25.0-35.0); MCHC 28.9 g/dL (31.0-37.0); Mean Platelet Volume 9.6; Microcytosis Marked; Monocytes # (A) 0.3 k/uL (0-1.0); Monocytes % (A) 6 %; Neutrophils % (A) 78 %; Platelet Count 196 k/uL (150-450); RBC 4.59 m/uL (4.30-5.90); WBC 5.1 k/uL (3.8-10.6)
[2022-03-24 08:45] LABS: RDW 27.4 % (11.5-15.5)
[2022-03-24] MEDS: PARoxetine 20 MG TAB PO SCH (08:58)
[2022-03-24] MEDS: METOPROLOL SUCCINATE (ER) 25 MG TAB.ER.24H PO SCH (08:58)
[2022-03-24] MEDS: APIXABAN 2.5 MG TABLET PO SCH ×2 (08:58→20:09)
[2022-03-24 09:27] LABS: Mixed Population RBC Present
[2022-03-24] MEDS: FUROSEMIDE 10 MG/ML 4 ML VIAL IV SCH ×3 (11:00→23:37)
[2022-03-24 11:53] VITALS: BMI 27.3
[2022-03-24] MEDS ORDERED: AMIODARONE 450 MG in DEXTROSE 5% IN WATER 250 ML IV SCH ×2 (13:20)
--- NOTE | 2022-03-24 15:26 | P.PN ---
Subjective Progress Note Date: 03/24/22 Hospital course: Patient is a very pleasant 81-year-old male with a past medical history of atrial septal defect with repair, chronic diastolic CHF, chronic kidney disease stage III, chronic persistent atrial fibrillation on anticoagulation with Eliquis, and chronic venous stasis of bilateral lower extremities. He presented to the emergency department 03/23/22 with a chief complaint of shortness of breath and lower extremity edema. Patient reported awakening with these symptoms which slowly worsened throughout the day. He reports later in the day when his home care nurse came to evaluate him, she was very concerned and advised him to go to the emergency room for evaluation. He reported compliance with his dietary fluid restriction as well as his Lasix. Patient reported that his symptoms are similar to his prior episodes of CHF exacerbations and recently underwent hospitalization from 02/07/22 through 02/12/22 for CHF exacerbation.. Patient underwent full evaluation in the emergency department. Vital signs initially stable with BP 114/98, pulse 83, respiratory rate 18, and SpO2 98% on room air. Laboratory analysis was completed and reviewed. CBC revealing microcytic microchromic anemia with hemoglobin 10.7 (improved from baseline hemoglobin of 8). BMP consistent with stage III CKD with BUN of 52, creatinine 1.77, and GFR of 35 creatinine slightly above baseline of 1.4. Liver profile revealing elevated total bili of 2.6 (which appears chronic) and slight elevation of alkaline phosphatase of 130. Troponin negative at less than 0.012 and proBNP elevated at 7710. EKG was completed revealing atrial fibrillation with a controlled ventricular rate at 98 bpm with frequent PVCs and a right bundle burt block upon personal review. Chest x-ray consistent with congestive heart failure revealing pulmonary vascular congestion and bilateral pleural effusions. Patient admitted under our services with consultation to cardiology. Physical exam: Patient was seen and fully evaluated at bedside. He is currently on 5 L O2 via nasal cannula with SpO2 of 93%. Family visiting at bedside. Patient reports persistent shortness of breath worsening with minimal exertion. Lungs bibasilar crackles. Patient with moderate edema throughout bilateral legs extending into thighs and groin. Patient denies having any headache, lightheadedness, dizziness, chest pain, or palpitations at this time. Morning labs reviewed and stable. We will continue to monitor closely and attempt to wean oxygen as patient tolerates. Patient to continue with Lasix 40 mg IVP every 12 hours with strict monitoring of output. Vital signs reviewed and stable. General: Nontoxic, no distress and appears stated age. Derm: Skin warm and dry, normal coloration for ethnicity. Head: Atraumatic, normocephalic and symmetric. Eyes: EOMs intact, no lid lag, and anicteric sclera Mouth: no lip lesions, mucus membranes moist Cardiovascular: regular rate and rhythm with normal S1S2, systolic murmur, positive posterior tibial pulses bilaterally, and cap refill < 2 seconds. Lungs: Respirations even, regular, and unlabored on room air. Lungs with bibasilar crackles, no rhonchi, no rales, no wheezing, and no accessory muscle usage. Abdominal: soft, nontender to palpation, no guarding, no appreciable organomegaly Ext: ROM intact. No gross muscle atrophy, no contractures. Patient with significant edema of bilateral lower extremities extending upwards into bilateral thighs and testicles Neuro: Speech clear, face symmetrical and CN II-XII grossly intact with no noted focal neuro deficits Psych: Alert and oriented to person, place, time, and situation. Appropriate and pleasant affect. Assessment and Plan of Care: Acute exacerbation of chronic diastolic heart failure Acute respiratory failure with hypoxia secondary to heart failure exacerbation Chronic persistent atrial fibrillation Valvular heart disease with mitral and tricuspid regurgitation Pulmonary hypertension Chronic venous stasis of bilateral lower extremities -Cardiology consulted, appreciate further recommendations -Telemetry monitoring -ProBNP 7710. -Daily weights -Close monitoring of I's and O's -Cardiac diet -Lasix -Continue Eliquis and metoprolol -Continuation of daily medications including: -Lipid profile and Hgb A1c with a.m. labs. -Continued close monitoring of electrolytes while diuresing. -Repeat echocardiogram to be completed as previous Echocardiogram last echo completed 01/08/20 showing a preserved EF of 50-55% with moderate to severe mitral and tricuspid regurgitation and moderate pulmonary hypertension CODE STATUS: Full code DVT prophylaxis: Eliquis Discussed with: Pt, pt's family members at bedside. Anticipated discharge date: likely 2-[address]: Home A total of 36 minutes was spent on the care of this complex patient more than 50% of the time was spent in counseling and care coordination. Vicente Muñoz NP rendered care for this patient independently, reviewed the findings and plan as documented in the note above. I did not physically speak with or examine the patient on this date. Objective - Vital Signs Vital signs: Vital Signs Temp 97 F L 03/24/22 03:00 Pulse 79 03/24/22 07:00 Resp 22 03/24/22 07:00 BP 114/77 03/24/22 07:00 Pulse Ox 93 L 03/24/22 08:01 FiO2 Intake & Output 03/23/22 03/24/22 03/24/22 18:59 06:59 18:59 Output Total 300 Balance -300 Weight 83.915 kg Output: Urine 300 - Labs CBC & Chem 7: 03/24/22 07:37 03/24/22 07:45 Labs: Abnormal Lab Results - Last 24 Hours (Table) 03/23/22 03/23/22 03/23/22 Range/Units 15:56 15:56 15:56 Hgb 10.7 L (13.0-17.5) gm/dL Hct 36.2 L (39.0-53.0) % MCV 79.2 L (80.0-100.0) fL MCH 23.4 L (25.0-35.0) pg MCHC 29.6 L (31.0-37.0) g/dL RDW 27.0 H (11.5-15.5) % Lymphocytes # (Manual) 0.55 L (1.0-4.8) k/uL PT 14.3 H (9.0-12.0) sec INR 1.4 H (<1.2) BUN 52 H (9-20) mg/dL Creatinine 1.77 H (0.66-1.25) mg/dL Magnesium 2.4 H (1.6-2.3) mg/dL Total Bilirubin 2.6 H (0.2-1.3) mg/dL Alkaline Phosphatase 130 H (38-126) U/L 03/24/22 03/24/22 Range/Units 07:37 07:45 Hgb 10.7 L (13.0-17.5) gm/dL Hct 37.2 L (39.0-53.0) % MCV (80.0-100.0) fL MCH 23.4 L (25.0-35.0) pg MCHC 28.9 L (31.0-37.0) g/dL RDW 27.4 H (11.5-15.5) % Lymphocytes # (Manual) (1.0-4.8) k/uL PT (9.0-12.0) sec INR (<1.2) BUN 48 H (9-20) mg/dL Creatinine 1.76 H (0.66-1.25) mg/dL Magnesium 2.4 H (1.6-2.3) mg/dL Total Bilirubin (0.2-1.3) mg/dL Alkaline Phosphatase (38-126) U/L
[2022-03-25] MEDS: APIXABAN 2.5 MG TABLET PO SCH ×2 (08:07→20:34)
[2022-03-25] MEDS: PARoxetine 20 MG TAB PO SCH (08:07)
[2022-03-25] MEDS: METOPROLOL SUCCINATE (ER) 25 MG TAB.ER.24H PO SCH (08:07)
--- NOTE | 2022-03-25 09:12 | P.PN ---
Subjective Progress Note Date: 03/25/22 Principal diagnosis: The patient is a pleasant 81-year-old gentleman with a past medical history significant for heart failure with preserved ejection fraction and permanent atrial fibrillation as well as hypertension and dyslipidemia and mitral regurgitation known to be severe as well as history of atrial septal repair in the past presented to the hospital complaining of increasing shortness of breath and also bilateral lower extremity edema. He stated that he has been compliant with his medications as well as compliant with his diet. He has been experiencing progressive upper and lower extremities edema beside the shortness of breath. No symptoms of chest pain or chest discomfort and no dizziness or lightheadedness and no feeling of heart racing or fluttering or presyncope or syncope. Further investigation was performed including EKG showed atrial fibrillation with runs of nonsustained ventricular tachycardia. His electrolytes are within normal limits including the sodium and potassium. No magnesium was thrown. The chest x-ray showed evidence of pulmonary vascular congestion to the patient wasn't started on Lasix IV. No recent echocardiogram. The last echo was from 2018 revealed normal biventricular systolic function with evidence of moderate mitral regurgitation and moderate tricuspid regurgitation and moderate pulmonary hypertension. We are in process of getting an echocardiogram on him at this point. March 252022 The patient was seen and evaluated this morning. He is overall feeling better. He still required oxygen to keep his saturation above 93 he continues to have mild bilateral lower extremity edema. He is on Lasix IV. The echo still pending. The creatinine has been stable. At this point I would advise continue the current medical regimen including the current dose of Lasix IV and continue monitor the kidney function and electrolytes and follow-up with the patient after the echo Objective - Vital Signs Vital signs: Vital Signs Temp 98.0 F 03/25/22 04:00 Pulse 80 03/25/22 07:47 Resp 22 03/25/22 07:47 BP 92/64 03/25/22 07:47 Pulse Ox 99 03/25/22 08:50 FiO2 Intake & Output 03/24/22 03/25/22 03/25/22 18:59 06:59 18:59 Intake Total 180 Output Total 200 200 100 Balance -200 -200 80 Weight 83.915 kg 66.5 kg Intake: Oral 180 Output: Urine 200 200 100 Other: Voiding Method Urinal Urinal - Constitutional General appearance: Present: no acute distress - Respiratory Respiratory: bilateral: diminished - Cardiovascular Heart sounds: normal: S1, S2 Abnormal Heart Sounds: Present: systolic murmur - Labs CBC & Chem 7: 03/24/22 07:37 03/24/22 07:45 Labs: Abnormal Lab Results - Last 24 Hours (Table) 03/24/22 Range/Units 07:37 Lymphocytes # 0.6 L (1.0-4.8) k/uL Assessment and Plan Assessment: Assessment Heart failure exacerbation secondary to heart failure with preserved ejection fraction Atrial fibrillation with overall controlled heart rate Nonsustained ventricular tachycardia Valvular heart disease with severe MR History of surgical atrial septal defect repair Multiple comorbid conditions Plan Continue Lasix IV with the current dose Continue monitor the kidney function and electrolytes Obtain an echocardiogram was Doppler Follow-up with the patient
--- NOTE | 2022-03-25 11:56 | CA ---
Transthoracic Echo Report Name: Shaheen Damico Age: 81 Gender: M : 1940 Exam Date: 03/24/2022 11:03 Exam Location: [facility] Ht (in): 69 Wt (lb): 185 Ordering Physician: Gustavo Tim MD Attending/Referring Phys: Layout Inspector Carla Mack RDCS Procedure CPT: Indications: chf Cardiac Hx: Technical Quality: Contrast 1: Total Dose (mL): Contrast 2: Total Dose (mL): MEASUREMENTS (Male / Female) Normal Values 2D ECHO LV Diastolic Diameter PLAX 4.5 cm 4.2 - 5.9 / 3.9 - 5.3 cm LV Systolic Diameter PLAX 3.9 cm IVS Diastolic Thickness 1.4 cm 0.6 - 1.0 / 0.6 - 0.9 cm LVPW Diastolic Thickness 1.3 cm 0.6 - 1.0 / 0.6 - 0.9 cm LV Relative Wall Thickness 0.6 RV Internal Dim ED PLAX 3.8 cm LA Systolic Diameter LX 8.9 cm 3.0 - 4.0 / 2.7 - 3.8 cm LA Volume 366.8 cm??? 18 - 58 / 22 - 52 cm??? DOPPLER TR Peak Velocity 182.7 cm/s TR Peak Gradient 35.0 mmHg FINDINGS Left Ventricle Mildly increased septal wall thickness. Left ventricular ejection fraction is estimated at 55 %. Right Ventricle Mild right ventricular dilatation. Right Atrium Severe right atrial dilatation. Left Atrium Severely increased left atrial diameter. Severely increased left atrial volume. Severely increased left atrial area. Mitral Valve Mitral valve thickened. Severe mitral regurgitation. Aortic Valve Trileaflet aortic valve. Aortic valve sclerosis. Tricuspid Valve Structurally normal tricuspid valve. Severe tricuspid regurgitation. Pulmonic Valve Structurally normal pulmonic valve. Mild pulmonic regurgitation. Pericardium Normal pericardium. Aorta Normal size aortic root and proximal ascending aorta. CONCLUSIONS Normal left ventricular dimension and systolic function Severe mitral regurgitation Severely dilated left atrium Severe tricuspid regurgitation Severely dilated right atrium Previewed by: Dr. Jamel Hicks MD (Electronically Signed) Final Date: 25 March 2022 11:55
[2022-03-25] MEDS: FUROSEMIDE 10 MG/ML 4 ML VIAL IV SCH ×2 (12:19→23:06)
--- NOTE | 2022-03-25 19:10 | P.PN ---
Subjective Progress Note Date: 03/25/22 Hospital course: Patient is a very pleasant 81-year-old male with a past medical history of atrial septal defect with repair, chronic diastolic CHF, chronic kidney disease stage III, chronic persistent atrial fibrillation on anticoagulation with Eliquis, and chronic venous stasis of bilateral lower extremities. He presented to the emergency department 03/23/22 with a chief complaint of shortness of breath and lower extremity edema. Patient reported awakening with these symptoms which slowly worsened throughout the day. He reports later in the day when his home care nurse came to evaluate him, she was very concerned and advised him to go to the emergency room for evaluation. He reported compliance with his dietary fluid restriction as well as his Lasix. Patient reported that his symptoms are similar to his prior episodes of CHF exacerbations and recently underwent hospitalization from 02/07/22 through 02/12/22 for CHF exacerbation.. Patient underwent full evaluation in the emergency department. Vital signs initially stable with BP 114/98, pulse 83, respiratory rate 18, and SpO2 98% on room air. Laboratory analysis was completed and reviewed. CBC revealing microcytic microchromic anemia with hemoglobin 10.7 (improved from baseline hemoglobin of 8). BMP consistent with stage III CKD with BUN of 52, creatinine 1.77, and GFR of 35 creatinine slightly above baseline of 1.4. Liver profile revealing elevated total bili of 2.6 (which appears chronic) and slight elevation of alkaline phosphatase of 130. Troponin negative at less than 0.012 and proBNP elevated at 7710. EKG was completed revealing atrial fibrillation with a controlled ventricular rate at 98 bpm with frequent PVCs and a right bundle burt block upon personal review. Chest x-ray consistent with congestive heart failure revealing pulmonary vascular congestion and bilateral pleural effusions. Patient admitted under our services with consultation to cardiology. Physical exam: Patient was seen and fully evaluated at bedside. RN reports yesterday afternoon and evening patient had difficult time with nasal cannula and was placed on nonrebreather at 15 L. Patient does not medically need to be placed on nonrebreather and was placed back on nasal cannula 5 L at this time with SpO2 97%. Patient reports mild shortness of breath but states he is okay at rest. Patient continues to have by basilar crackles at bases of bilateral lungs and diminished lung sounds. Edema improving to groin, however patient continues with bilateral lower extending into size. Patient to continue with IV Lasix 40 mg IVP every 12 hours with continued close monitoring of output. Morning labs and echocardiogram pending. Patient denies having any headache, lightheadedness, dizziness, chest pain, or palpitations at this time. family at bedside visiting this morning. Vital signs reviewed and stable. General: Nontoxic, no distress and appears stated age. Derm: Skin warm and dry, normal coloration for ethnicity. Head: Atraumatic, normocephalic and symmetric. Eyes: EOMs intact, no lid lag, and anicteric sclera Mouth: no lip lesions, mucus membranes moist Cardiovascular: regular rate and rhythm with normal S1S2, systolic murmur, positive posterior tibial pulses bilaterally, and cap refill < 2 seconds. Lungs: Respirations even, regular, and unlabored on room air. Lungs with bibasil ar crackles, no rhonchi, no rales, no wheezing, and no accessory muscle usage. Abdominal: soft, nontender to palpation, no guarding, no appreciable organomegaly Ext: ROM intact. No gross muscle atrophy, no contractures. Patient with significant edema of bilateral lower extremities extending upwards into bilateral thighs and testicles Neuro: Speech clear, face symmetrical and CN II-XII grossly intact with no noted focal neuro deficits Psych: Alert and oriented to person, place, time, and situation. Appropriate and pleasant affect. Assessment and Plan of Care: Acute exacerbation of chronic diastolic heart failure Acute respiratory failure with hypoxia secondary to heart failure exacerbation Chronic persistent atrial fibrillation Valvular heart disease with mitral and tricuspid regurgitation Pulmonary hypertension Chronic venous stasis of bilateral lower extremities -Cardiology consulted, appreciate further recommendations -Telemetry monitoring -ProBNP 7710. -Daily weights -Close monitoring of I's and O's -Cardiac diet -Lasix -Continue Eliquis and metoprolol -Continuation of daily medications including: -Lipid profile and Hgb A1c with a.m. labs. -Continued close monitoring of electrolytes while diuresing. -Repeat echocardiogram to be completed as previous Echocardiogram last echo completed 01/08/20 showing a preserved EF of 50-55% with moderate to severe mitral and tricuspid regurgitation and moderate pulmonary hypertension CODE STATUS: Full code DVT prophylaxis: Eliquis Discussed with: Pt, pt's family members at bedside and RN Anticipated discharge date: likely 2-[address]: Home A total of 35 minutes was spent on the care of this complex patient more than 50% of the time was spent in counseling and care coordination. Objective - Vital Signs Vital signs: Vital Signs Temp 98.0 F 03/25/22 04:00 Pulse 80 03/25/22 07:47 Resp 22 03/25/22 07:47 BP 92/64 03/25/22 07:47 Pulse Ox 96 03/25/22 07:47 FiO2 Intake & Output 03/24/22 03/25/22 03/25/22 18:59 06:59 18:59 Intake Total 180 Output Total 200 200 100 Balance -200 -200 80 Weight 83.915 kg 66.5 kg Intake: Oral 180 Output: Urine 200 200 100 Other: Voiding Method Urinal Urinal - Labs CBC & Chem 7: 03/24/22 07:37 03/24/22 07:45 Labs: Abnormal Lab Results - Last 24 Hours (Table) 03/24/22 Range/Units 07:37 Lymphocytes # 0.6 L (1.0-4.8) k/uL
--- NOTE | 2022-03-26 07:26 | P.PN ---
Subjective Principal diagnosis: Heart failure The patient is a pleasant 81-year-old gentleman with a past medical history significant for heart failure with preserved ejection fraction and permanent atrial fibrillation as well as hypertension and dyslipidemia and mitral regurgitation known to be severe as well as history of atrial septal repair in the past presented to the hospital complaining of increasing shortness of breath and also bilateral lower extremity edema. He stated that he has been compliant with his medications as well as compliant with his diet. He has been experiencing progressive upper and lower extremities edema beside the shortness of breath. No symptoms of chest pain or chest discomfort and no dizziness or lightheadedness and no feeling of heart racing or fluttering or presyncope or syncope. Further investigation was performed including EKG showed atrial fibrillation with runs of nonsustained ventricular tachycardia. His electrolytes are within normal limits including the sodium and potassium. No magnesium was thrown. The chest x-ray showed evidence of pulmonary vascular congestion to the patient wasn't started on Lasix IV. No recent echocardiogram. The last echo was from 2018 revealed normal biventricular systolic function with evidence of moderate mitral regurgitation and moderate tricuspid r egurgitation and moderate pulmonary hypertension. We are in process of getting an echocardiogram on him at this point. March 252022 The patient was seen and evaluated this morning. He is overall feeling better. He still required oxygen to keep his saturation above 93 he continues to have mild bilateral lower extremity edema. He is on Lasix IV. The echo still pending. The creatinine has been stable. At this point I would advise continue the current medical regimen including the current dose of Lasix IV and continue monitor the kidney function and electrolytes and follow-up with the patient after the echo March 272022 The patient was seen this morning. He remains hypoxic requiring 5 L of oxygen to maintain saturation above 90%. He remains old hypervolemic with upper ex tremities edema and bilateral rhonchi/wheezing. Currently he is not making urine on the current dose of Lasix which is 20 mg IV twice a day which I'm going to increase to 40 mg IV twice a day did pressure is soft. Continue monitor the kidney function and electrolytes. The echo revealed preserved biventricular systolic function with severe mitral regurgitation and severe tricuspid regurgitation and severe biatrial enlargement. Objective - Vital Signs Vital signs: Vital Signs Temp 97.9 F 03/26/22 04:00 Pulse 87 03/26/22 04:00 Resp 18 03/26/22 04:00 BP 95/63 03/26/22 04:00 Pulse Ox 94 L 03/26/22 04:00 FiO2 Intake & Output 03/25/22 03/26/22 03/26/22 18:59 06:59 18:59 Intake Total 360 Output Total 525 200 Balance -165 -200 Weight 64 kg Intake: Oral 360 Output: Urine 525 200 Other: Voiding Method Urinal Urinal # Voids 1 1 # Bowel Movements 1 - Constitutional General appearance: Present: no acute distress - Respiratory Respiratory: bilateral: diminished - Cardiovascular Heart sounds: normal: S1, S2 Abnormal Heart Sounds: Present: systolic murmur - Labs CBC & Chem 7: 03/24/22 07:37 03/24/22 07:45 Assessment and Plan Assessment: Assessment Heart failure exacerbation secondary to heart failure with preserved ejection fraction Atrial fibrillation with overall controlled heart rate Nonsustained ventricular tachycardia Valvular heart disease with severe MR History of surgical atrial septal defect repair Multiple comorbid conditions Plan Increase the dose of Lasix Continue monitor the kidney function and electrolytes Follow-up with the patient
[2022-03-26] MEDS ORDERED: FUROSEMIDE 10 MG/ML 2 ML VIAL IV ONE (07:27)
[2022-03-26 08:10] LABS: Anisocytosis Marked; HCT 39.8 % (39.0-53.0); HGB 11.4 gm/dL (13.0-17.5); Hypochromasia Marked; MCH 23.5 pg (25.0-35.0); MCHC 28.7 g/dL (31.0-37.0); MCV 81.9 fL (80.0-100.0); Mean Platelet Volume 8.9; Microcytosis Moderate; Platelet Count 201 k/uL (150-450); RBC 4.85 m/uL (4.30-5.90); WBC 5.4 k/uL (3.8-10.6)
[2022-03-26 08:16] LABS: RDW 26.6 % (11.5-15.5)
[2022-03-26 08:28] LABS: Albumin 3.5 g/dL (3.5-5.0); Calcium 8.6 mg/dL (8.4-10.2); Magnesium 2.6 mg/dL (1.6-2.3); Potassium 4.3 mmol/L (3.5-5.1); Total Bilirubin 3.3 mg/dL (0.2-1.3)
[2022-03-26] MEDS: APIXABAN 2.5 MG TABLET PO SCH ×2 (08:56→20:44)
[2022-03-26] MEDS: METOPROLOL SUCCINATE (ER) 25 MG TAB.ER.24H PO SCH (08:56)
[2022-03-26] MEDS: PARoxetine 20 MG TAB PO SCH (08:56)
[2022-03-26] MEDS: FUROSEMIDE 10 MG/ML 4 ML VIAL IV SCH ×2 (11:57→23:04)
--- NOTE | 2022-03-26 16:36 | P.PN ---
Progress Note - Text Progress Note Date: 03/26/22 Hospital course: Patient is a very pleasant 81-year-old male with a past medical history of atrial septal defect with repair, chronic diastolic CHF, chronic kidney disease stage III, chronic persistent atrial fibrillation on anticoagulation with Eliquis, and chronic venous stasis of bilateral lower extremities. He presented to the emergency department 03/23/22 with a chief complaint of shortness of breath and lower extremity edema. Patient reported awakening with these s ymptoms which slowly worsened throughout the day. He reports later in the day when his home care nurse came to evaluate him, she was very concerned and advised him to go to the emergency room for evaluation. He reported compliance with his dietary fluid restriction as well as his Lasix. Patient reported that his symptoms are similar to his prior episodes of CHF exacerbations and recently underwent hospitalization from 02/07/22 through 02/12/22 for CHF exacerbation.. Patient underwent full evaluation in the emergency department. Vital signs initially stable with BP 114/98, pulse 83, respiratory rate 18, and SpO2 98% on room air. Laboratory analysis was completed and reviewed. CBC revealing microcytic microchromic anemia with hemoglobin 10.7 (improved from baseline hemoglobin of 8). BMP consistent with stage III CKD with BUN of 52, creatinine 1.77, and GFR of 35 creatinine slightly above baseline of 1.4. Liver profile revealing elevated total bili of 2.6 (which appears chronic) and slight elevation of alkaline phosphatase of 130. Troponin negative at less than 0.012 and proBNP elevated at 7710. EKG was completed revealing atrial fibrillation with a controlled ventricular rate at 98 bpm with frequent PVCs and a right bundle burt block upon personal review. Chest x-ray consistent with congestive heart failure revealing pulmonary vascular congestion and bilateral pleural effusions. Patient admitted under our services with consultation to cardiology. 03/26/2022: I assumed care of the patient today. Patient remained short of breath. Some decrease in edema and arm swelling. Decreased appetite. Tired is being changed over to soft diet. Patient has chronic lower extremity dressings for fluid blisters. Tired. Remains on IV Lasix. Atrial fibrillation remains controlled. Active Medications Apixaban (Apixaban 2.5 Mg Tablet) 2.5 mg PO BID [facility]; Protocol Last Admin: 03/26/22 08:56 Dose: 2.5 mg Furosemide (Furosemide 10 Mg/Ml 4 Ml Vial) 40 mg IV Q12H [facility] Last Admin: 03/26/22 11:57 Dose: 40 mg Metoprolol Succinate (Metoprolol Succinate (Er) 25 Mg Tab.Er.24h) 25 mg PO DAILY [facility] Last Admin: 03/26/22 08:56 Dose: 25 mg Naloxone HCl (Naloxone 0.4 Mg/Ml 1 Ml Vial) 0.2 mg IV Q2M PRN PRN Reason: Opioid Reversal Paroxetine HCl (Paroxetine 20 Mg Tab) 20 mg PO DAILY [facility] Last Admin: 03/26/22 08:56 Dose: 20 mg .On examination: VITAL SIGNS: 97.4, 81, 87, 16, 92 x 62, 90% on 4.5 L GENERAL APPEARANCE: Reclining in bed, tired, HEENT: Normal external appearance of nose and ear. Oral cavity normal EYES: Pupils equal. Conjunctiva normal. NECK: JVD not raised. Mass not palpable. RESPIRATORY: Respiratory effort increased. Lungs decreased breath sounds. CARDIOVASCULAR: Irregular heart sounds. Lower extremity Erasto wrap dressing ABDOMEN: Soft. Liver and spleen not palpable. No tenderness. No mass palpable. PSYCHIATRY: Alert and oriented x3. Mood and affect normal. MUSCULAR skeletal: Evidence of OA INVESTIGATIONS, reviewed in the clinical context: White count 5.4 hemoglobin 11.4 platelets 201 potassium 4.3. 58 creatinine 2.2 2-D echocardiogram: EF 55%. Severe right atrial dilatation. Severe left atrial dilatation. Severe mitral regurgitation. Severe tricuspid regurgitation. Previous labs: Creatinine 1.46 on February 13 Assessment and plan: -Acute on chronic CHF with preserved ejection fraction of 50%, better On IV Lasix 40 every 12. -Severe mitral and tricuspid regurgitation Follow with cardiology -Normocytic anemia with hemoglobin 7.6. From iron deficiency, secondary to CKD -Acute kidney injury from cardiorenal syndrome/ATN.: Worsening Creatinine is 1 up from 1.46-2.2. -Persistent atrial fibrillation on anticoagulation : Rate controlled Eliquis. Toprol-XL -History of ASD closure in 1987 -History of sick sinus syndrome -Essential Hypertension Currently of blood pressure meds -Chronic kidney disease, stage III likely nephrosclerosis Follow renal function -Primary Osteoarthritis Tylenol as needed -Chronic lower extremity venous insufficiency Erasto wrap -Anxiety Paxil -Full code Worsening renal function. consult nephrology. Chest x-ray in the morning. Discussed the patient
--- NOTE | 2022-03-27 08:13 | XR ---
EXAMINATION TYPE: XR chest 2V DATE OF EXAM: 03/27/2022 COMPARISON: Chest x-ray March 23, 2022 HISTORY: CHF progress study. TECHNIQUE: Frontal and lateral views of the chest are obtained. FINDINGS: Persistent cardiomegaly with small bilateral pleural effusions. Persistent left greater th an right bibasilar opacities. Overlying sternal wires and mediastinal clips redemonstrated. Osseous s tructures remain demineralized with mild chronic height loss in the mid thoracic vertebra redemonstra farrukh. IMPRESSION: Findings consistent with continued CHF exacerbation remain present. Underlying acute inf iltrate left lung base not excluded. No significant change from most recent x-ray.
[2022-03-27] MEDS: METOPROLOL SUCCINATE (ER) 25 MG TAB.ER.24H PO SCH (08:18)
[2022-03-27] MEDS: APIXABAN 2.5 MG TABLET PO SCH (08:18)
[2022-03-27] MEDS: PARoxetine 20 MG TAB PO SCH (08:18)
[2022-03-27 08:19] LABS: Calcium 8.9 mg/dL (8.4-10.2); Magnesium 2.7 mg/dL (1.6-2.3); Potassium 4.8 mmol/L (3.5-5.1)
[2022-03-27] MEDS ORDERED: MIDODRINE 5 MG TAB PO SCH (08:35)
[2022-03-27 08:48] LABS: Glucose,Whole Blood 31 mg/dL (70-110)
[2022-03-27 09:07] LABS: Glucose,Whole Blood <20 mg/dL (70-110)
[2022-03-27] MEDS ORDERED: DEXTROSE 50% SYRINGE 50 ML IVP STA (09:09)
[2022-03-27 09:10] LABS: Glucose,Whole Blood <20 mg/dL (70-110)
[2022-03-27 09:23] LABS: Glucose,Whole Blood <20 mg/dL (70-110)
[2022-03-27] MEDS ORDERED: GLUCAGON 1 MG/ML VIAL IVP STA ×2 (09:23→09:29)
[2022-03-27 09:40] LABS: Glucose,Whole Blood 79 mg/dL (70-110)
[2022-03-27] MEDS: DEXTROSE 10% IN WATER 500 ML in EMPTY BAG 1 BAG IV SCH ×4 (10:03→22:00)
[2022-03-27 10:04] LABS: Glucose,Whole Blood 55 mg/dL (70-110)
--- NOTE | 2022-03-27 10:07 | P.NPCON ---
History of Present Illness - Reason for Consult acute renal failure - History of Present Illness Patient is an 81-year-old male with history of diastolic CHF, paroxysmal A. fib, chronic kidney disease with baseline creatinine about 1.2-1.3 mg/dL, NKF stage III a, admitted with complaints of shortness of breath and increased lower extremity swelling. Patient denies any history of chest pain. Patient's blood pressure has been on the lower side. He is currently maintained on IV Lasix but has not diuresed. Patient is noted to have poor urine output. Bladder scan initially showed about 500 ml but only 50 ML was obtained on straight catheterization. Echocardiogram shows ejection fraction 55% with severely dilated left atrium and right atrium. Serum creatinine was 1.7 mg/dL on admission and increased to 2.8 today. Chest x-ray continues to show pulmonary vascular congestion and small bilateral pleural effusions. Maintained on high flow oxygen with O2 sats at 92% Review of Systems As per HPI Past Medical History Past Medical History: Atrial Fibrillation, Coronary Artery Disease (CAD), Chest Pain / Angina, GI Bleed, Hypertension, Osteoarthritis (OA), Vascular Disorder Additional Past Medical History / Comment(s): Arthritis in multiple joints, chronic cervical pain, lower GI bleed, hemorrhoids, benign colon polyps, venouse insufficiency/discoloration bilateral ankles/feet, fluid around L lung after heart surgery with chest tube and now that lung has some scarring. History of Any Multi-Drug Resistant Organisms: None Reported Past Surgical History: Cholecystectomy, Heart Catheterization Additional Past Surgical History / Comment(s): 1987 ASD closure, cardiac cath x2, colonoscopies/benign polypectomies, laparotomy with ventral hernia repair/mesh, bilateral eye cataract removals/lens implants then clouded over and has had L eye lasered. Past Anesthesia/Blood Transfusion Reactions: No Reported Reaction Additional Past Anesthesia/Blood Transfusion Reaction / Comment(s): Pt states he was slow to wake after last colonoscopy. Past Psychological History: Anxiety Additional Psychological History / Comment(s): OCD. Pt resides with his son, Frank. Pt uses no assistive device. He drives some, son does most of the driving. Smoking Status: Never smoker Past Alcohol Use History: None Reported Additional Past Alcohol Use History / Comment(s): SMOKER AGE 15(1955) quit 1961 was 1/4 ppd and occasional pipe during that time. Past Drug Use History: None Reported - Past Family History Father Family Medical History: Cancer Additional Family Medical History / Comment(s): LUNG CA. FATHER WAS A SMOKER. Sister(s) Family Medical History: Cancer Additional Family Medical History / Comment(s): SKIN CA Mother Family Medical History: Dementia Medications and Allergies Home Medications Medication Instructions Recorded Confirmed Type PARoxetine [Paxil] 20 mg PO DAILY 11/26/13 03/23/22 History Apixaban [Eliquis] 2.5 mg PO BID 30 Days #60 tab 02/10/22 03/23/22 Rx Furosemide [Lasix] 40 mg PO BID 03/12/22 03/23/22 History Docusate Sodium [Dok] 100 mg PO 03/26/22 History Allergies Allergy/AdvReac Type Severity Reaction Status Date / Time clindamycin Allergy Rash/Hives/ Verified 03/23/22 17:10 ITCHING dipyridamole Allergy Rash/Hives Verified 03/23/22 17:10 [From Persantine] MED USED FOR CHEMICAL STRESS Allergy Rash/Hives/ Uncoded 03/23/22 17:10 TEST ITCHING Physical Exam Vitals: Vital Signs Temp Pulse Resp BP BP Pulse Ox 03/27/22 08:15 96.5 F L 78 20 95/58 92 L 03/27/22 04:00 96.5 F L 73 20 129/73 90 L 03/27/22 00:00 96.7 F L 71 20 117/70 90 L 03/26/22 20:00 96.1 F L 81 18 139/70 90 L 03/26/22 16:55 76 20 86/48 90 L 03/26/22 16:48 90 L 03/26/22 11:55 79 18 101/58 96 Intake and Output 03/26/22 03/27/22 03/27/22 22:59 06:59 14:59 Intake Total 240 Output Total 15 Balance 225 Intake: Oral 240 Output: Urine 15 Post Void Residual 0 Other: Voiding Method Indwelling Catheter Indwelling Catheter Weight 63 kg Patient is awake, comfortable, no acute distress Examination of the heart S1 and S2 Examination of the lungs decreased breath sounds at the bases with basilar crackles Examination of the abdomen reveals it to be soft obese nontender Examination of lower extremities shows edema 2+ bilaterally with chronic skin changes, left leg is wrapped [employer] exam grossly intact Results - Lab Results Most recent lab results Calcium 8.9 mg/dL (8.4-10.2) 03/27/22 07:07 Magnesium 2.7 mg/dL (1.6-2.3) H 03/27/22 07:07 03/26/22 07:51 03/27/22 07:07 Assessment and Plan Assessment: 1. Acute kidney injury ATN currently oliguric associated with hypotension and hypoperfusion. No evidence of urine retention. 2. Chronic kidney disease NKF stage IIIa secondary to nephrosclerosis. Previous UA in 2019 showed no evidence of proteinuria. Check ultrasound of the kidneys 3. Acute on top of chronic diastolic CHF. Ejection fraction 55% with severely dilated left atrium 4. Acute hypoxic respiratory failure secondary to CHF exacerbation maintained on high flow oxygen 5. Paroxysmal A. fib maintained on eliquis with controlled ventricular response Plan: Increase Lasix to 80 mg IV every 12 hours Add midodrine Repeat labs in a.m. Check UA Check ultrasound of the kidneys Avoid nephrotoxic agents If patient remains oliguric he will need to start renal replacement therapy. Thank you for the consultation. We will continue to follow the patient with you during his hospitalization
[2022-03-27] MEDS: FUROSEMIDE 10 MG/ML 10 ML VIAL IV SCH ×2 (10:36→20:40)
[2022-03-27 10:38] LABS: Glucose,Whole Blood 167 mg/dL (70-110)
--- NOTE | 2022-03-27 11:12 | US ---
EXAMINATION TYPE: US kidneys/renal and bladder DATE OF EXAM: 03/27/2022 COMPARISON: CT 2019 CLINICAL HISTORY: dariela. DARIELA per order. Hx renal cysts. EXAM MEASUREMENTS: Right Kidney: 10.1 x 4.4 x 4.7 cm Left Kidney: 10.3 x 4.9 x 4.2 cm Right Kidney: Anechoic area seen laterally at mid: 3.2 x 2.0 x 2.2 cm. Anechoic area seen lower: 1.4 x 1.3 x 1.4 cm. Additional smaller anechoic area seen lower pole. Left Kidney: Complex area seen lower pole: 1.5 x 1.9 x 1.9 cm. Anechoic area seen upper pole: 15.7 x 12.9 x 10.9 cm. Bladder: Not distended. Catheter is in place. Bilateral Jets seen: No Increased cortical echogenicity bilaterally with thin perez cysts are seen bilaterally. Smaller 1.9 cm exophytic thin-walled debris filled cyst corresponds to slightly more hyperdense lesion on 2019 CT . Large exophytic thin-walled cyst from the upper pole left kidney redemonstrated. Difficult to accu rately characterize due to size on ultrasound. Sauceda catheter decompresses bladder. IMPRESSION: Evidence of chronic medical renal disease redemonstrated. No hydronephrosis seen oscar lomas.
[2022-03-27 11:59] LABS: Glucose,Whole Blood 139 mg/dL (70-110)
[2022-03-27] MEDS ORDERED: DEXTROSE 4 GM CHEWABLE PO PRN (12:00)
[2022-03-27] MEDS: DEXTROSE 4 GM CHEWABLE PO SCH ×4 (13:04→22:48)
[2022-03-27 13:39] LABS: Bacteria,Urine Many /hpf; Budding Yeast,Urine Many /hpf; RBC,Urine >182 /hpf (0-5); Squamous Epithelial Cell,Urine 29 /hpf (0-4); WBC,Urine >182 /hpf (0-5)
[2022-03-27 13:43] LABS: Appearance,Urine Bloody (Clear); Color,Urine Red
--- NOTE | 2022-03-27 14:42 | P.PN ---
Subjective Progress Note Date: 03/27/22 History of present illness: The patient is a pleasant 81-year-old gentleman with a past medical history si gnificant for heart failure with preserved ejection fraction and permanent atrial fibrillation as well as hypertension and dyslipidemia and mitral regurgitation known to be severe as well as history of atrial septal repair in the past presented to the hospital complaining of increasing shortness of breath and also bilateral lower extremity edema. He stated that he has been compliant with his medications as well as compliant with his diet. He has been experiencing progressive upper and lower extremities edema beside the shortness of breath. No symptoms of chest pain or chest discomfort and no dizziness or lightheadedness and no feeling of heart racing or fluttering or presyncope or syncope. Further investigation was performed including EKG showed atrial fibrillation with runs of nonsustained ventricular tachycardia. His electrolytes are within normal limits including the sodium and potassium. No magnesium was thrown. The chest x-ray showed evidence of pulmonary vascular congestion to the patient wasn't started on Lasix IV. No recent echocardiogram. The last echo was from 2018 revealed normal biventricular systolic function with evidence of moderate mitral regurgitation and moderate tricuspid regurgitation and moderate pulmonary hypertension. We are in process of getting an echocardiogram on him at this point. March 252022 The patient was seen and evaluated this morning. He is overall feeling better. He still required oxygen to keep his saturation above 93 he continues to have mild bilateral lower extremity edema. He is on Lasix IV. The echo still pendin g. The creatinine has been stable. At this point I would advise continue the current medical regimen including the current dose of Lasix IV and continue monitor the kidney function and electrolytes and follow-up with the patient after the echo March 272022 The patient was seen this morning. He remains hypoxic requiring 5 L of oxygen to maintain saturation above 90%. He remains old hypervolemic with upper extremities edema and bilateral rhonchi/wheezing. Currently he is not making urine on the current dose of Lasix which is 20 mg IV twice a day which I'm going to increase to 40 mg IV twice a day did pressure is soft. Continue monitor the kidney function and electrolytes. The echo revealed preserved biventricular systolic function with severe mitral regurgitation and severe tricuspid regurgitation and severe biatrial enlargement. 1/3 Heart rate has been in the 70s, blood pressure 98/67 and pulse ox 97% on high flow nasal cannula at 8 L. desk monitor is atrial fibrillation with controlled rate. Patient states that he feels okay today. Breathing seems to be better. Urinalysis bloody. Patient had severe hypoglycemia 38, status post D50 and glucagon and currently on D10 IV fluids. Nephrology is following. Physical examination: Gen: This is an 81-year-old male. He is resting in bed and appears to be comfortable and in no acute distress. VS: reviewed HEENT: Head is atraumatic, normocephalic. Pupils equal, round. Sclerae is anicteric. NECK: Supple. No JVD. No lymphadenopathy. No thyromegaly. LUNGS: Diminished bilaterally. No wheezes or rhonchi. No intercostal retractions. HEART: Regular rate and rhythm. Systolic murmur. ABDOMEN: Soft. Bowel sounds are present. No masses. No tenderness. EXTREMITIES: No pedal edema. No calf tenderness. NEUROLOGICAL: Patient is awake, alert and oriented x3. Cranial nerves 2 through 12 are grossly intact. 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 Continue to monitor the kidney function and electrolytes Follow-up with the patient Nurse practitioner note has been reviewed, I agree with documented findings and plan of care. Patient was seen and examined. Objective - Vital Signs Vital signs: Vital Signs Temp 96.5 F L 03/27/22 08:15 Pulse 78 03/27/22 08:15 Resp 20 03/27/22 08:15 BP 95/58 03/27/22 08:15 Pulse Ox 92 L 03/27/22 08:15 FiO2 Intake & Output 03/26/22 03/27/22 03/27/22 18:59 06:59 18:59 Intake Total 360 240 Output Total 125 15 Balance 235 225 Weight 63 kg Intake: Oral 360 240 Output: Urine 125 15 Post Void Residual 0 Other: Voiding Method Urinal Indwelling Catheter - Labs CBC & Chem 7: 03/26/22 07:51 03/27/22 07:07 Labs: Abnormal Lab Results - Last 24 Hours (Table) 03/27/22 03/27/2223 Range/Units 07:07 08:46 09:05 Carbon Dioxide 19 L (22-30) mmol/L BUN 62 H (9-20) mg/dL Creatinine 2.88 H (0.66-1.25) mg/dL Glucose 38 L* (74-99) mg/dL POC Glucose (mg/dL) 31 L <20 L (70-110) mg/dL Magnesium 2.7 H (1.6-2.3) mg/dL 03/27/22 03/27/22 03/27/22 Range/Units 09:08 09:21 10:03 Carbon Dioxide (22-30) mmol/L BUN (9-20) mg/dL Creatinine (0.66-1.25) mg/dL Glucose (74-99) mg/dL POC Glucose (mg/dL) <20 L <20 L 55 L (70-110) mg/dL Magnesium (1.6-2.3) mg/dL
[2022-03-27 16:34] LABS: Glucose,Whole Blood 209 mg/dL (70-110)
--- NOTE | 2022-03-27 17:25 | P.PN ---
Progress Note - Text Progress Note Date: 03/27/22 Hospital course: Patient is a very pleasant 81-year-old male with a past medical history of atrial septal defect with repair, chronic diastolic CHF, chronic kidney disease stage III, chronic persistent atrial fibrillation on anticoagulation with Eliquis, and chronic venous stasis of bilateral lower extremities. He presented to the emergency department 03/23/22 with a chief complaint of shortness of breath and lower extremity edema. Patient reported awakening with these symptoms which slowly worsened throughout the day. He reports later in the day when his home care nurse came to evaluate him, she was very concerned and advised him to go to the emergency room for evaluation. He reported compliance with his dietary fluid restriction as well as his Lasix. Patient reported that his symptoms are similar to his prior episodes of CHF exacerbations and recently underwent hospitalization from 02/07/22 through 02/12/22 for CHF exacerbation.. Patient underwent full evaluation in the emergency department. Vital signs initially stable with BP 114/98, pulse 83, respiratory rate 18, and SpO2 98% on room air. Laboratory analysis was completed and reviewed. CBC revealing microcytic microchromic anemia with hemoglobin 10.7 (improved from baseline hemoglobin of 8). BMP consistent with stage III CKD with BUN of 52, creatinine 1.77, and GFR of 35 creatinine slightly above baseline of 1.4. Liver profile revealing elevated total bili of 2.6 (which appears chronic) and slight elevation of alkaline phosphatase of 130. Troponin negative at less than 0.012 and proBNP elevated at 7710. EKG was completed revealing atrial fibrillation with a controlled ventricular rate at 98 bpm with frequent PVCs and a right bundle burt block upon personal review. Chest x-ray consistent with congestive heart failure revealing pulmonary vascular congestion and bilateral pleural effusions. Patient admitted under our services with consultation to cardiology. 03/26/2022: I assumed care of the patient today. Patient remained short of breath. Some decrease in edema and arm swelling. Decreased appetite. Tired is being changed over to soft diet. Patient has chronic lower extremity dressings for fluid blisters. Tired. Remains on IV Lasix. Atrial fibrillation remains controlled. 03/27/2022: Patient has not been eating well. Became hypoglycemic. He to give IV glucagon and D10 drip. Started on IV Lasix every 12 80 mg by nephrology. Poor urine output with concentrated urine. Eliquis put on hold for possible dialysis catheter placement. Glucose tablets ordered. An orange juice. Chest x-ray shows CHF. Active Medications Apixaban (Apixaban 2.5 Mg Tablet) 2.5 mg PO BID [facility]; Protocol Last Admin: 03/27/22 08:18 Dose: 2.5 mg Furosemide (Furosemide 10 Mg/Ml 10 Ml Vial) 80 mg IV Q12H [facility] Last Admin: 03/27/22 10:36 Dose: 80 mg Glucose (Dextrose 4 Gm Chewable) 4 gm PO Q4H [facility] Last Admin: 03/27/22 17:17 Dose: 4 gm Dextrose/Water 500 ml/ IV (Solution) 500 mls @ 110 mls/hr IV .Q4H33M [facility] Last Admin: 03/27/22 10:03 Dose: 110 mls/hr Metoprolol Succinate (Metoprolol Succinate (Er) 25 Mg Tab.Er.24h) 25 mg PO DAILY [facility] Last Admin: 03/27/22 08:18 Dose: 25 mg Naloxone HCl (Naloxone 0.4 Mg/Ml 1 Ml Vial) 0.2 mg IV Q2M PRN PRN Reason: Opioid Reversal Paroxetine HCl (Paroxetine 20 Mg Tab) 20 mg PO DAILY [facility] Last Admin: 03/27/22 08:18 Dose: 20 mg .On examination: VITAL SIGNS: 97, 73, 22, 98/67, 97% on 8 L GENERAL APPEARANCE: Reclining in bed, tired, HEENT: Normal external appearance of nose and ear. Oral cavity normal EYES: Pupils equal. Conjunctiva normal. NECK: JVD raised. Mass not palpable. RESPIRATORY: Respiratory effort increased. Lungs decreased breath sounds. CARDIOVASCULAR: Irregular heart sounds. Lower extremity Erasto wrap dressing on left leg. Edema present. ABDOMEN: Soft. Liver and spleen not palpable. No tenderness. No mass palpable. PSYCHIATRY: Alert and oriented x3. Mood and affect tired MUSCULAR skeletal: Evidence of OA INVESTIGATIONS, reviewed in the clinical context: 03/27/2022: Potassium 4.8 BUN 62 creatinine 2.88 White count 5.4 hemoglobin 11.4 platelets 201 potassium 4.3. 58 creatinine 2.2 2-D echocardiogram: EF 55%. Severe right atrial dilatation. Severe left atrial dilatation. Severe mitral regurgitation. Severe tricuspid regurgitation. Previous labs: Creatinine 1.46 on February 13 Assessment and plan: -Acute on chronic CHF with preserved ejection fraction of 50%, not improving Increase IV Lasix 80 every 12. -Severe hypoglycemia from poor oral intake Glucagon 1 mg IV. D10 drip. Avery juice. -Severe mitral and tricuspid regurgitation Follow with cardiology -Normocytic anemia with hemoglobin 7.6. From iron deficiency, secondary to CKD -Acute kidney injury from cardiorenal syndrome/ATN.: Worsening Baseline creatinine 1.46.. -Persistent atrial fibrillation on anticoagulation : Rate controlled Eliquis. Toprol-XL -History of ASD closure in 1987 -History of sick sinus syndrome -Essential Hypertension Currently of blood pressure meds -Chronic kidney disease, stage III likely nephrosclerosis Follow renal function. Baseline creatinine 1.46 -Primary Osteoarthritis Tylenol as needed -Chronic lower extremity venous insufficiency Erasto wrap -Anxiety Paxil -Full code Worsening renal function. Lasix dose increased. Checks x-ray confirms pulmonary edema.. Patient probably need hemodialysis. D10 drip.
[2022-03-27] MEDS ORDERED: DEXTROSE 5%-0.45% NACL 1,000 ML IV SCH (17:30)
[2022-03-27 20:30] LABS: Glucose,Whole Blood 80 mg/dL (70-110)
[2022-03-28 02:01] LABS: Glucose,Whole Blood 66 mg/dL (70-110)
[2022-03-28 02:19] LABS: Glucose,Whole Blood 62 mg/dL (70-110)
[2022-03-28 02:39] LABS: Glucose,Whole Blood 112 mg/dL (70-110)
[2022-03-28 02:39] LABS: Glucose,Whole Blood <20 mg/dL (70-110)
[2022-03-28 02:40] LABS: Glucose,Whole Blood 77 mg/dL (70-110)
[2022-03-28] MEDS: DEXTROSE 10% IN WATER 500 ML in EMPTY BAG 1 BAG IV SCH ×2 (03:04→11:27)
[2022-03-28] MEDS: DEXTROSE 4 GM CHEWABLE PO SCH ×5 (03:17→20:32)
[2022-03-28 05:57] LABS: Glucose,Whole Blood 20 mg/dL (70-110)
[2022-03-28 05:57] LABS: Glucose,Whole Blood <20 mg/dL (70-110)
[2022-03-28 06:03] LABS: Glucose,Whole Blood 106 mg/dL (70-110)
[2022-03-28] MEDS: FUROSEMIDE 10 MG/ML 10 ML VIAL IV SCH (09:13)
[2022-03-28] MEDS: METOPROLOL SUCCINATE (ER) 25 MG TAB.ER.24H PO SCH (09:14)
[2022-03-28] MEDS: PARoxetine 20 MG TAB PO SCH (09:15)
[2022-03-28] MEDS: PSYLLIUM HUSK 100% 6 GM PACKET PO SCH (09:15)
[2022-03-28] MEDS ORDERED: DEXTROSE 10% IN WATER 500 ML IV SCH (10:15)
[2022-03-28 11:50] LABS: Glucose,Whole Blood 113 mg/dL (70-110)
[2022-03-28] MEDS: MIDODRINE 5 MG TAB PO SCH ×2 (12:04→17:50)
[2022-03-28 12:07] VITALS: BP 76/52
--- NOTE | 2022-03-28 12:22 | P.PN ---
Subjective Patient is seen for follow-up for acute kidney injury. Patient is admitted to the hospital with complaints of shortness of breath. He has evidence of volume overload. Patient is maintained on Lasix 80 mg IV every 12 hours with poor response. No evidence of retention Blood pressure has been low with systolic in the 80s to low 90s. Patient was s tarted on midodrine however blood pressure remains low. Cortisol level has been ordered No evidence of fever, white cell count not elevated, UA showed significant WBCs and RBCs If patient continues to have poor urine output he will need renal replacement therapy however given his significant hypotension he may not be a candidate for dialysis especially long-term. Objective - Vital Signs Vital signs: Vital Signs Temp 97.2 F L 03/28/22 03:40 Pulse 66 03/28/22 12:00 Resp 20 03/28/22 12:00 BP 76/52 03/28/22 12:00 Pulse Ox 94 L 03/28/22 12:00 FiO2 Intake & Output 03/27/22 03/28/22 03/28/22 18:59 06:59 18:59 Intake Total 480 Output Total 45 Balance 435 Weight 72 kg Intake: Oral 480 Output: Urine 45 Other: Voiding Method Indwelling Catheter Indwelling Catheter Indwelling Catheter # Bowel Movements 1 - Exam Patient is sleeping but arousable Not in any acute distress Examination of the heart S1 and S2 Examination of the lungs bilateral breath sounds are heard Abdomen is soft nontender Examination of the lower extremities shows chronic skin changes chronic edema 2+ bilaterally [employer] exam grossly intact - Labs CBC & Chem 7: 03/26/22 07:51 03/28/22 10:06 Labs: Abnormal Lab Results - Last 24 Hours (Table) 03/27/22 03/27/22 03/28/22 Range/Units 13:20 16:32 01:59 BUN (9-20) mg/dL Creatinine (0.66-1.25) mg/dL Glucose (74-99) mg/dL POC Glucose (mg/dL) 209 H 66 L (70-110) mg/dL Urine RBC >182 H (0-5) /hpf Urine WBC >182 H (0-5) /hpf Urine WBC Clumps Many H (None) /hpf Ur Squamous Epith Cells 29 H (0-4) /hpf Urine Bacteria Many H (None) /hpf Urine Yeast (Budding) Many H (None) /hpf 03/28/22 03/28/22 03/28/22 Range/Units 02:17 02:33 02:37 BUN (9-20) mg/dL Creatinine (0.66-1.25) mg/dL Glucose (74-99) mg/dL POC Glucose (mg/dL) 62 L <20 L 112 H (70-110) mg/dL Urine RBC (0-5) /hpf Urine WBC (0-5) /hpf Urine WBC Clumps (None) /hpf Ur Squamous Epith Cells (0-4) /hpf Urine Bacteria (None) /hpf Urine Yeast (Budding) (None) /hpf 03/28/22 03/28/22 03/28/22 Range/Units 05:53 05:55 10:06 BUN 75 H (9-20) mg/dL Creatinine 3.24 H (0.66-1.25) mg/dL Glucose 102 H (74-99) mg/dL POC Glucose (mg/dL) <20 L 20 L (70-110) mg/dL Urine RBC (0-5) /hpf Urine WBC (0-5) /hpf Urine WBC Clumps (None) /hpf Ur Squamous Epith Cells (0-4) /hpf Urine Bacteria (None) /hpf Urine Yeast (Budding) (None) /hpf 03/28/22 Range/Units 11:42 BUN (9-20) mg/dL Creatinine (0.66-1.25) mg/dL Glucose (74-99) mg/dL POC Glucose (mg/dL) 113 H (70-110) mg/dL Urine RBC (0-5) /hpf Urine WBC (0-5) /hpf Urine WBC Clumps (None) /hpf Ur Squamous Epith Cells (0-4) /hpf Urine Bacteria (None) /hpf Urine Yeast (Budding) (None) /hpf Assessment and Plan Assessment: 1. Acute kidney injury ATN currently oliguric associated with hypotension and hypoperfusion. No evidence of urine retention. Patient remains oliguric and may need renal replacement therapy if renal function continues to worsen and patient remains with volume overload. 2. Chronic kidney disease NKF stage IIIa secondary to nephrosclerosis. Previous UA in 2019 showed no evidence of proteinuria. Check ultrasound of the kidneys 3. Acute on top of chronic diastolic CHF. Ejection fraction 55% with severely dilated left atrium 4. Acute hypoxic respiratory failure secondary to CHF exacerbation maintained on high flow oxygen 5. Paroxysmal A. fib maintained on eliquis with controlled ventricular response 6. Pyuria rule out UTI Plan: Continue with midodrine Check urine culture Recommend to add antibiotics for possible underlying UTI Patient is not in ideal candidate for long-term renal replacement therapy. No indication for urgent hemodialysis today. We will continue to monitor on a daily basis.
[2022-03-28 12:30] VITALS: TEMP 97.5
--- NOTE | 2022-03-28 13:31 | P.PN ---
Subjective Progress Note Date: 03/28/22 History of present illness: The patient is a pleasant 81-year-old gentleman with a past medical history si gnificant for heart failure with preserved ejection fraction and permanent atrial fibrillation as well as hypertension and dyslipidemia and mitral regurgitation known to be severe as well as history of atrial septal repair in the past presented to the hospital complaining of increasing shortness of breath and also bilateral lower extremity edema. He stated that he has been compliant with his medications as well as compliant with his diet. He has been experiencing progressive upper and lower extremities edema beside the shortness of breath. No symptoms of chest pain or chest discomfort and no dizziness or lightheadedness and no feeling of heart racing or fluttering or presyncope or syncope. Further investigation was performed including EKG showed atrial fibrillation with runs of nonsustained ventricular tachycardia. His electrolytes are within normal limits including the sodium and potassium. No magnesium was thrown. The chest x-ray showed evidence of pulmonary vascular congestion to the patient wasn't started on Lasix IV. No recent echocardiogram. The last echo was from 2018 revealed normal biventricular systolic function with evidence of moderate mitral regurgitation and moderate tricuspid regurgitation and moderate pulmonary hypertension. We are in process of getting an echocardiogram on him at this point. March 252022 The patient was seen and evaluated this morning. He is overall feeling better. He still required oxygen to keep his saturation above 93 he continues to have mild bilateral lower extremity edema. He is on Lasix IV. The echo still pendin g. The creatinine has been stable. At this point I would advise continue the current medical regimen including the current dose of Lasix IV and continue monitor the kidney function and electrolytes and follow-up with the patient after the echo March 272022 The patient was seen this morning. He remains hypoxic requiring 5 L of oxygen to maintain saturation above 90%. He remains old hypervolemic with upper extremities edema and bilateral rhonchi/wheezing. Currently he is not making urine on the current dose of Lasix which is 20 mg IV twice a day which I'm going to increase to 40 mg IV twice a day did pressure is soft. Continue monitor the kidney function and electrolytes. The echo revealed preserved biventricular systolic function with severe mitral regurgitation and severe tricuspid regurgitation and severe biatrial enlargement. 1/3 Heart rate has been in the 70s, blood pressure 98/67 and pulse ox 97% on high flow nasal cannula at 8 L. monitoring tech is atrial fibrillation with controlled rate. Patient states that he feels okay today. Breathing seems to be better. Urinalysis bloody. Patient had severe hypoglycemia 38, status post D50 and glucagon and currently on D10 IV fluids. Nephrology is following. 03/28 We discontinued midodrine yesterday but blood pressure is significantly low. Manual blood pressure check was 82/48. Heart rate is in the 60s. Discussed with nephrology and midodrine will be resumed. Renal function is worsening with BUN 75 creatinine 3.24 and potassium 5. Physical examination: Gen: This is an 81-year-old male. He is resting in bed and appears to be comfortable and in no acute distress. VS: reviewed HEENT: Head is atraumatic, normocephalic. Pupils equal, round. Sclerae is anicteric. NECK: Supple. No JVD. No lymphadenopathy. No thyromegaly. LUNGS: Diminished bilaterally. No wheezes or rhonchi. No intercostal retractions. HEART: Regular rate and rhythm. Systolic murmur. ABDOMEN: Soft. Bowel sounds are present. No masses. No tenderness. EXTREMITIES: No pedal edema. No calf tenderness. NEUROLOGICAL: Patient is awake, alert and oriented x3. Cranial nerves 2 through 12 are grossly intact. 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 Patient was seen and examined. Objective - Vital Signs Vital signs: Vital Signs Temp 97.5 F L 03/28/22 12:30 Pulse 66 03/28/22 12:00 Resp 20 03/28/22 12:00 BP 76/52 03/28/22 12:00 Pulse Ox 94 L 03/28/22 12:00 FiO2 Intake & Output 03/27/22 03/28/22 03/28/22 18:59 06:59 18:59 Intake Total 480 Output Total 45 Balance 435 Weight 72 kg Intake: Oral 480 Output: Urine 45 Other: Voiding Method Indwelling Catheter Indwelling Catheter Indwelling Catheter # Bowel Movements 1 - Labs CBC & Chem 7: 03/26/22 07:51 03/28/22 10:06 Labs: Abnormal Lab Results - Last 24 Hours (Table) 03/27/22 03/27/22 03/28/22 Range/Units 13:20 16:32 01:59 BUN (9-20) mg/dL Creatinine (0.66-1.25) mg/dL Glucose (74-99) mg/dL POC Glucose (mg/dL) 209 H 66 L (70-110) mg/dL Urine RBC >182 H (0-5) /hpf Urine WBC >182 H (0-5) /hpf Urine WBC Clumps Many H (None) /hpf Ur Squamous Epith Cells 29 H (0-4) /hpf Urine Bacteria Many H (None) /hpf Urine Yeast (Budding) Many H (None) /hpf 03/28/22 03/28/22 03/28/22 Range/Units 02:17 02:33 02:37 BUN (9-20) mg/dL Creatinine (0.66-1.25) mg/dL Glucose (74-99) mg/dL POC Glucose (mg/dL) 62 L <20 L 112 H (70-110) mg/dL Urine RBC (0-5) /hpf Urine WBC (0-5) /hpf Urine WBC Clumps (None) /hpf Ur Squamous Epith Cells (0-4) /hpf Urine Bacteria (None) /hpf Urine Yeast (Budding) (None) /hpf 03/28/22 03/28/22 03/28/22 Range/Units 05:53 05:55 10:06 BUN 75 H (9-20) mg/dL Creatinine 3.24 H (0.66-1.25) mg/dL Glucose 102 H (74-99) mg/dL POC Glucose (mg/dL) <20 L 20 L (70-110) mg/dL Urine RBC (0-5) /hpf Urine WBC (0-5) /hpf Urine WBC Clumps (None) /hpf Ur Squamous Epith Cells (0-4) /hpf Urine Bacteria (None) /hpf Urine Yeast (Budding) (None) /hpf 03/28/22 Range/Units 11:42 BUN (9-20) mg/dL Creatinine (0.66-1.25) mg/dL Glucose (74-99) mg/dL POC Glucose (mg/dL) 113 H (70-110) mg/dL Urine RBC (0-5) /hpf Urine WBC (0-5) /hpf Urine WBC Clumps (None) /hpf Ur Squamous Epith Cells (0-4) /hpf Urine Bacteria (None) /hpf Urine Yeast (Budding) (None) /hpf
--- NOTE | 2022-03-28 14:00 | P.PN ---
Progress Note - Text Progress Note Date: 03/28/22 Hospital course: Patient is a very pleasant 81-year-old male with a past medical history of atrial septal defect with repair, chronic diastolic CHF, chronic kidney disease stage III, chronic persistent atrial fibrillation on anticoagulation with Eliquis, and chronic venous stasis of bilateral lower extremities. He presented to the emergency department 03/23/22 with a chief complaint of shortness of breath and lower extremity edema. Patient reported awakening with these symptoms which slowly worsened throughout the day. He reports later in the day when his home care nurse came to evaluate him, she was very concerned and advised him to go to the emergency room for evaluation. He reported compliance with his dietary fluid restriction as well as his Lasix. Patient reported that his symptoms are similar to his prior episodes of CHF exacerbations and recently underwent hospitalization from 02/07/22 through 02/12/22 for CHF exacerbation.. Patient underwent full evaluation in the emergency department. Vital signs initially stable with BP 114/98, pulse 83, respiratory rate 18, and SpO2 98% on room air. Laboratory analysis was completed and reviewed. CBC revealing microcytic microchromic anemia with hemoglobin 10.7 (improved from baseline hemoglobin of 8). BMP consistent with stage III CKD with BUN of 52, creatinine 1.77, and GFR of 35 creatinine slightly above baseline of 1.4. Liver profile revealing elevated total bili of 2.6 (which appears chronic) and slight elevation of alkaline phosphatase of 130. Troponin negative at less than 0.012 and proBNP elevated at 7710. EKG was completed revealing atrial fibrillation with a controlled ventricular rate at 98 bpm with frequent PVCs and a right bundle burt block upon personal review. Chest x-ray consistent with congestive heart failure revealing pulmonary vascular congestion and bilateral pleural effusions. Patient admitted under our services with consultation to cardiology. 03/26/2022: I assumed care of the patient today. Patient remained short of breath. Some decrease in edema and arm swelling. Decreased appetite. Tired is being changed over to soft diet. Patient has chronic lower extremity dressings for fluid blisters. Tired. Remains on IV Lasix. Atrial fibrillation remains controlled. 03/27/2022: Patient has not been eating well. Became hypoglycemic. He to give IV glucagon and D10 drip. Started on IV Lasix every 12 80 mg by nephrology. Poor urine output with concentrated urine. Eliquis put on hold for possible dialysis catheter placement. Glucose tablets ordered. An orange juice. Chest x-ray shows CHF. 03/28/2022: Lethargic. Short of breath. Making minimal urine. Blood pressure running low. Midodrine that was held yesterday because resumed today. Discussed with Dr. Mejia from nephrology. Not a good candidate for hemodialysis because of low blood pressure. Patient lethargic just about answering occasional question. Spoke to patient's son Frank over the phone. Understands prognosis guarded. CODE STATUS changed to DO NOT RESUSCITATE. Active Medications Apixaban (Apixaban 2.5 Mg Tablet) 2.5 mg PO BID [facility]; Protocol Last Admin: 03/27/22 08:18 Dose: 2.5 mg Furosemide (Furosemide 10 Mg/Ml 10 Ml Vial) 80 mg IV Q12H [facility] Last Admin: 03/28/22 09:13 Dose: 80 mg Glucose (Dextrose 4 Gm Chewable) 4 gm PO Q4H [facility] Last Admin: 03/28/22 12:04 Dose: 4 gm Ceftriaxone Sodium 1 gm/ (Sodium Chloride) 50 mls @ 100 mls/hr IVPB Q24HR [facility]; Protocol Metoprolol Succinate (Metoprolol Succinate (Er) 25 Mg Tab.Er.24h) 25 mg PO DAILY [facility] Last Admin: 03/28/22 09:14 Dose: 25 mg Midodrine (Midodrine 5 Mg Tab) 10 mg PO AC-TID [facility] Last Admin: 03/28/22 12:04 Dose: 10 mg Naloxone HCl (Naloxone 0.4 Mg/Ml 1 Ml Vial) 0.2 mg IV Q2M PRN PRN Reason: Opioid Reversal Paroxetine HCl (Paroxetine 20 Mg Tab) 20 mg PO DAILY [facility] Last Admin: 03/28/22 09:15 Dose: 20 mg Psyllium Hydrophilic Mucilloid (Psyllium Husk 100% 6 Gm Packet) 6 gm PO DAILY [facility] Last Admin: 03/28/22 09:15 Dose: 6 gm .On examination: VITAL SIGNS: 97.2, 77, 20, 89 x 39, 84% on 8 L GENERAL APPEARANCE: Reclining in bed, lethargic HEENT: Normal external appearance of nose and ear. Oral cavity normal EYES: Pupils equal. Conjunctiva normal. NECK: JVD raised. Mass not palpable. RESPIRATORY: Respiratory effort increased. Lungs decreased breath sounds. CARDIOVASCULAR: Irregular heart sounds. Lower extremity Erasto wrap dressing on left leg. Edema present. ABDOMEN: Soft. Liver and spleen not palpable. No tenderness. No mass palpable. PSYCHIATRY: Lethargic. MUSCULAR skeletal: Evidence of OA INVESTIGATIONS, reviewed in the clinical context: 03/28/2022: Potassium 5 BUN 75 creatinine 3.24 03/27/2022: Potassium 4.8 BUN 62 creatinine 2.88 White count 5.4 hemoglobin 11.4 platelets 201 potassium 4.3. 58 creatinine 2.2 2-D echocardiogram: EF 55%. Severe right atrial dilatation. Severe left atrial dilatation. Severe mitral regurgitation. Severe tricuspid regurgitation. Previous labs: Creatinine 1.46 on February 13 Assessment and plan: -Acute on chronic CHF with preserved ejection fraction of 50%, not improving DC IV Lasix. We will try Bumex drip 0.5 mg an hour. -Acute metabolic encephalopathy from renal failure -Severe hypoglycemia from poor oral intake D5W drip -Severe mitral and tricuspid regurgitation Follow with cardiology -Normocytic anemia with hemoglobin 7.6. From iron deficiency, secondary to CKD -Acute kidney injury from cardiorenal syndrome/ATN.: Worsening Baseline creatinine 1.46.. -Persistent atrial fibrillation on anticoagulation : Rate controlled Eliquis. Toprol-XL -History of ASD closure in 1987 -History of sick sinus syndrome -Essential Hypertension Currently of blood pressure meds -Chronic kidney disease, stage III likely nephrosclerosis Follow renal function. Baseline creatinine 1.46 -Primary Osteoarthritis Tylenol as needed -Chronic lower extremity venous insufficiency Erasto wrap -Anxiety Paxil -DO NOT RESUSCITATE Worsening renal function. Poor urine output. We'll try the patient on Bumex drip. Prognosis guarded. Discussed with Dr. Mejia from nephrology. Spoke to patient's son. Patient DO NOT RESUSCITATE. Midodrine added. Advance care planning: Discussed with the patient's son. Clinical condition updated. Understands pr ognosis guarded. States patient would not elevation to be on the ventilator or have CPR. He'll come in to see the patient. Patient been made DO NOT RESUSCITATE. Time spent about 25 minutes.
[2022-03-28 16:30] LABS: Glucose,Whole Blood 88 mg/dL (70-110)
[2022-03-28] MEDS ORDERED: MORPHINE SULFATE 2 MG/ML SYRINGE IV PRN (17:06)
[2022-03-28] MEDS ORDERED: LORazepam 2 MG/ML INJ IV PRN (17:06)
[2022-03-28] MEDS ORDERED: ONDANSETRON 4 MG/2 ML VIAL IVP PRN (17:06)
[2022-03-28] MEDS ORDERED: ATROPINE OPHTH SOLN 1% 5ML BTL SUBLINGUAL PRN (17:06)
[2022-03-28] MEDS ORDERED: ACETAMINOPHEN SUPPOSITORY 650 MG SUPP RECTAL PRN (17:06)
[2022-03-28] MEDS: BUMETANIDE 10 MG in DEXTROSE 5% IN WATER 60 ML IV SCH ×2 (17:11)
[2022-03-28] MEDS: HYDROmorphone 0.5 MG/0.5 ML SYRINGE IVP PRN (17:27)
[2022-03-28] MEDS ORDERED: SCOPOLAMINE 1 MG/72 HR PATCH TRANSDERM SCH (18:00)
[2022-03-29] MEDS: HYDROmorphone 0.5 MG/0.5 ML SYRINGE IVP PRN ×5 (00:29→18:32)
[2022-03-29] MEDS: DEXTROSE 4 GM CHEWABLE PO SCH ×7 (01:22→23:25)
[2022-03-29] MEDS: MIDODRINE 5 MG TAB PO SCH ×3 (06:03→18:39)
[2022-03-29] MEDS: APIXABAN 2.5 MG TABLET PO SCH ×2 (08:48→19:45)
[2022-03-29] MEDS: BUMETANIDE 10 MG in DEXTROSE 5% IN WATER 60 ML IV SCH ×2 (08:49)
[2022-03-29] MEDS: PSYLLIUM HUSK 100% 6 GM PACKET PO SCH (08:49)
[2022-03-29] MEDS: METOPROLOL SUCCINATE (ER) 25 MG TAB.ER.24H PO SCH (08:49)
[2022-03-29] MEDS: PARoxetine 20 MG TAB PO SCH (08:49)
[2022-03-29] MEDS: GLYCOPYRROLATE 0.2 MG/ML 2 ML VIAL IVP PRN (13:46)
--- NOTE | 2022-03-29 13:54 | P.PN ---
Subjective Patient is seen for follow-up for acute kidney injury. Patient is admitted to the hospital with complaints of shortness of breath. He has evidence of volume overload. Patient is maintained on Bumex drip No evidence of retention Blood pressure has been low with systolic in the 80s to low 90s. Patient was started on midodrine however blood pressure remains low. Started on antibiotics for possible UTI Patient is not a candidate for renal replacement therapy given his advanced age and persistent hypotension. There are plans for hospice care. A lot of family members are present in the room today. Objective - Vital Signs Vital signs: Vital Signs Temp 97.5 F L 03/28/22 12:30 Pulse 70 03/29/22 00:00 Resp 20 03/29/22 00:00 BP 76/52 03/28/22 12:00 Pulse Ox 93 L 03/28/22 20:00 FiO2 Intake & Output 03/28/22 03/29/22 03/29/22 18:59 06:59 18:59 Intake Total 10 Balance 10 Intake: IV 10 Invasive Line 3 10 Other: Voiding Method Indwelling Catheter Indwelling Catheter Indwelling Catheter - Exam Patient is sleeping. He appears comfortable. - Labs CBC & Chem 7: 03/26/22 07:51 03/28/22 10:06 Labs: Microbiology - Last 24 Hours (Table) 03/28/22 18:06 Urine Culture - Preliminary Urine,Catheterized Assessment and Plan Assessment: 1. Acute kidney injury ATN currently oliguric associated with hypotension and hypoperfusion. No evidence of urine retention. Patient remains oliguric and he is not an ideal candidate for renal replacement therapy given his advanced age and persistent hypotension. Family considering hospice care 2. Chronic kidney disease NKF stage IIIa secondary to nephrosclerosis. Previous UA in 2019 showed no evidence of proteinuria. Check ultrasound of the kidneys 3. Acute on top of chronic diastolic CHF. Ejection fraction 55% with severely dilated left atrium 4. Acute hypoxic respiratory failure secondary to CHF exacerbation maintained on high flow oxygen 5. Paroxysmal A. fib maintained on eliquis with controlled ventricular response 6. Pyuria rule out UTI Plan: Agree with plans for hospice care.
--- NOTE | 2022-03-29 16:13 | P.PN ---
Progress Note - Text Progress Note Date: 03/29/22 Hospital course: Patient is a very pleasant 81-year-old male with a past medical history of atrial septal defect with repair, chronic diastolic CHF, chronic kidney disease stage III, chronic persistent atrial fibrillation on anticoagulation with Eliquis, and chronic venous stasis of bilateral lower extremities. He presented to the emergency department 03/23/22 with a chief complaint of shortness of breath and lower extremity edema. Patient reported awakening with these symptoms which slowly worsened throughout the day. He reports later in the day when his home care nurse came to evaluate him, she was very concerned and advised him to go to the emergency room for evaluation. He reported compliance with his dietary fluid restriction as well as his Lasix. Patient reported that his symptoms are similar to his prior episodes of CHF exacerbations and recently underwent hospitalization from 02/07/22 through 02/12/22 for CHF exacerbation.. Patient underwent full evaluation in the emergency department. Vital signs initially stable with BP 114/98, pulse 83, respiratory rate 18, and SpO2 98% on room air. Laboratory analysis was completed and reviewed. CBC revealing microcytic microchromic anemia with hemoglobin 10.7 (improved from baseline hemoglobin of 8). BMP consistent with stage III CKD with BUN of 52, creatinine 1.77, and GFR of 35 creatinine slightly above baseline of 1.4. Liver profile revealing elevated total bili of 2.6 (which appears chronic) and slight elevation of alkaline phosphatase of 130. Troponin negative at less than 0.012 and proBNP elevated at 7710. EKG was completed revealing atrial fibrillation with a controlled ventricular rate at 98 bpm with frequent PVCs and a right bundle burt block upon personal review. Chest x-ray consistent with congestive heart failure revealing pulmonary vascular congestion and bilateral pleural effusions. Patient admitted under our services with consultation to cardiology. 03/26/2022: I assumed care of the patient today. Patient remained short of breath. Some decrease in edema and arm swelling. Decreased appetite. Tired is being changed over to soft diet. Patient has chronic lower extremity dressings for fluid blisters. Tired. Remains on IV Lasix. Atrial fibrillation remains controlled. 03/27/2022: Patient has not been eating well. Became hypoglycemic. He to give IV glucagon and D10 drip. Started on IV Lasix every 12 80 mg by nephrology. Poor urine output with concentrated urine. Eliquis put on hold for possible dialysis catheter placement. Glucose tablets ordered. An orange juice. Chest x-ray shows CHF. 03/28/2022: Lethargic. Short of breath. Making minimal urine. Blood pressure running low. Midodrine that was held yesterday because resumed today. Discussed with Dr. Mejia from nephrology. Not a good candidate for hemodialysis because of low blood pressure. Patient lethargic just about answering occasional question. Spoke to patient's son Frank over the phone. Understands prognosis guarded. CODE STATUS changed to DO NOT RESUSCITATE. 03/29/2022: Patient yesterday evening with comfort care. Several family members at the bedside including the son and daughter. On nasal cannula. Some increase in respiration. Otherwise patient appears comfortable. Family would like bereavement counseling which hospice is consulted. Active Medications Acetaminophen (Acetaminophen Suppository 650 Mg Supp) 650 mg RECTAL Q4HR PRN PRN Reason: Fever and/or Mild Pain Apixaban (Apixaban 2.5 Mg Tablet) 2.5 mg PO BID [facility]; Protocol Last Admin: 03/29/22 08:48 Dose: Not Given Atropine Sulfate (Atropine Ophth Soln 1% 5ml Btl) 2 drops SUBLINGUAL Q4HR PRN PRN Reason: Excess Secretions Glucose (Dextrose 4 Gm Chewable) 4 gm PO Q4H [facility] Last Admin: 03/29/22 11:56 Dose: Not Given Glycopyrrolate (Glycopyrrolate 0.2 Mg/Ml 2 Ml Vial) 0.1 mg IVP Q6HR PRN PRN Reason: Excess Secretions Last Admin: 03/29/22 13:46 Dose: 0.1 mg Hydromorphone HCl (Hydromorphone 0.5 Mg/0.5 Ml Syringe) 0.5 mg IVP Q2HR PRN PRN Reason: Moderate Pain (Scale 4 to 6) Last Admin: 03/29/22 13:46 Dose: 0.5 mg Ceftriaxone Sodium 1 gm/ (Sodium Chloride) 50 mls @ 100 mls/hr IVPB Q24HR [facility]; Protocol Last Admin: 03/29/22 08:48 Dose: Not Given Bumetanide 10 mg/ Dextrose/ (Water) 100 mls @ 5 mls/hr IV .Q20H [facility] Last Admin: 03/29/22 08:49 Dose: Not Given Lorazepam (Lorazepam 2 Mg/Ml Inj) 1 mg IV Q6HR PRN PRN Reason: Anxiety Metoprolol Succinate (Metoprolol Succinate (Er) 25 Mg Tab.Er.24h) 25 mg PO DAILY [facility] Last Admin: 03/29/22 08:49 Dose: Not Given Midodrine (Midodrine 5 Mg Tab) 10 mg PO AC-TID [facility] Last Admin: 03/29/22 11:56 Dose: Not Given Morphine Sulfate (Morphine Sulfate 2 Mg/Ml Syringe) 2 mg IV Q15M PRN PRN Reason: Breakthrough Pain Naloxone HCl (Naloxone 0.4 Mg/Ml 1 Ml Vial) 0.2 mg IV Q2M PRN PRN Reason: Opioid Reversal Ondansetron HCl (Ondansetron 4 Mg/2 Ml Vial) 4 mg IVP Q8HR PRN PRN Reason: Nausea/emesis Paroxetine HCl (Paroxetine 20 Mg Tab) 20 mg PO DAILY [facility] Last Admin: 03/29/22 08:49 Dose: Not Given Psyllium Hydrophilic Mucilloid (Psyllium Husk 100% 6 Gm Packet) 6 gm PO DAILY [facility] Last Admin: 03/29/22 08:49 Dose: Not Given Scopolamine (Scopolamine 1 Mg/72 Hr Patch) 1 patch TRANSDERM Q72H [facility] Last Admin: 03/28/22 20:32 Dose: 1 patch .On examination: VITAL SIGNS: 70, 20, 93% on 8 L GENERAL APPEARANCE: Reclining in bed, lethargic EYES: Pupils equal. Conjunctiva normal. NECK: JVD raised. Mass not palpable. RESPIRATORY: Respiratory effort increased. Lungs decreased breath sounds. CARDIOVASCULAR: Irregular heart sounds. Lower extremity Erasto wrap dressing on left leg. Edema present. PSYCHIATRY: Lethargic. INVESTIGATIONS, reviewed in the clinical context: 03/28/2022: Potassium 5 BUN 75 creatinine 3.24 03/27/2022: Potassium 4.8 BUN 62 creatinine 2.88 White count 5.4 hemoglobin 11.4 platelets 201 potassium 4.3. 58 creatinine 2.2 2-D echocardiogram: EF 55%. Severe right atrial dilatation. Severe left atrial dilatation. Severe mitral regurgitation. Severe tricuspid regurgitation. Previous labs: Creatinine 1.46 on February 13 Assessment and plan: -Acute on chronic CHF with preserved ejection fraction of 50%, not improving -Acute metabolic encephalopathy from renal failure -Severe hypoglycemia from poor oral intake -Severe mitral and tricuspid regurgitation -Normocytic anemia with hemoglobin 7.6. From iron deficiency, secondary to CKD -Acute kidney injury from cardiorenal syndrome/ATN.: Worsening Baseline creatinine 1.46.. -Persistent atrial fibrillation on anticoagulation : Rate controlled -History of ASD closure in 1987 -History of sick sinus syndrome -Essential Hypertension -Chronic kidney disease, stage III likely nephrosclerosis -Primary Osteoarthritis -Chronic lower extremity venous insufficiency Erasto wrap -Anxiety -DO NOT RESUSCITATE/comfort measures Discussed with family at the bedside. Bianca lovell. Consult hospice for bereavement counseling.
[2022-03-30] MEDS: GLYCOPYRROLATE 0.2 MG/ML 2 ML VIAL IVP PRN (02:08)
[2022-03-30 03:43] VITALS: PULSE 62; RESP 10
[2022-03-30] MEDS: DEXTROSE 4 GM CHEWABLE PO SCH ×2 (04:11→08:56)
[2022-03-30] MEDS: BUMETANIDE 10 MG in DEXTROSE 5% IN WATER 60 ML IV SCH ×2 (06:16)
[2022-03-30] MEDS: MIDODRINE 5 MG TAB PO SCH (06:18)
[2022-03-30] MEDS: PSYLLIUM HUSK 100% 6 GM PACKET PO SCH (08:56)
[2022-03-30] MEDS: METOPROLOL SUCCINATE (ER) 25 MG TAB.ER.24H PO SCH (08:56)
[2022-03-30] MEDS: PARoxetine 20 MG TAB PO SCH (08:56)
[2022-03-30] MEDS: APIXABAN 2.5 MG TABLET PO SCH (08:56)
--- NOTE | 2022-03-30 16:19 | P.DS ---
Providers Date of admission: 03/23/22 18:06 Expected date of discharge: 03/30/22 (Patient ) Attending physician: Kristian Brink Consults: 03/23/22 18:06 Consult Physician Routine Consulting Provider: [facility] Consult Reason/Comments: chf, NSVT Do you want consulting provider notified?: Yes, Notify in am 03/26/22 16:38 Consult Physician Routine Consulting Provider: Joan Mejia Consult Reason/Comments: [place] I Do you want consulting provider notified?: Yes Primary care physician: [facility] Hospital Course: Hospital course: Patient is a very pleasant 81-year-old male with a past medical history of atrial septal defect with repair, chronic diastolic CHF, chronic kidney disease stage III, chronic persistent atrial fibrillation on anticoagulation with Eliquis, and chronic venous stasis of bilateral lower extremities. He presented to the emergency department 03/23/22 with a chief complaint of shortness of breath and lower extremity edema. Patient reported awakening with these symptoms which slowly worsened throughout the day. He reports later in the day when his home care nurse came to evaluate him, she was very concerned and advised him to go to the emergency room for evaluation. He reported compliance with his dietary fluid restriction as well as his Lasix. Patient reported that his symptoms are similar to his prior episodes of CHF exacerbations and recently underwent hospitalization from 02/07/22 through 02/12/22 for CHF exacerbation.. Patient underwent full evaluation in the emergency department. Vital signs initially stable with BP 114/98, pulse 83, respiratory rate 18, and SpO2 98% on room air. Laboratory analysis was completed and reviewed. CBC revealing microcytic microchromic anemia with hemoglobin 10.7 (improved from baseline hemoglobin of 8). BMP consistent with stage III CKD with BUN of 52, creatinine 1.77, and GFR of 35 creatinine slightly above baseline of 1.4. Liver profile revealing elevated total bili of 2.6 (which appears chronic) and slight elevation of alkaline phosphatase of 130. Troponin negative at less than 0.012 and proBNP elevated at 7710. EKG was completed revealing atrial fibrillation with a controlled ventricular rate at 98 bpm with frequent PVCs and a right bundle burt block upon personal review. Chest x-ray consistent with congestive heart failure revealing pulmonary vascular congestion and bilateral pleural effusions. Patient admitted under our services with consultation to cardiology. 03/26/2022: I assumed care of the patient today. Patient remained short of breath. Some decrease in edema and arm swelling. Decreased appetite. Tired is being changed over to soft diet. Patient has chronic lower extremity dressings for fluid blisters. Tired. Remains on IV Lasix. Atrial fibrillation remains controlled. 03/27/2022: Patient has not been eating well. Became hypoglycemic. He to give IV glucagon and D10 drip. Started on IV Lasix every 12 80 mg by nephrology. Poor urine output with concentrated urine. Eliquis put on hold for possible dialysis catheter placement. Glucose tablets ordered. An orange juice. Chest x-ray shows CHF. 03/28/2022: Lethargic. Short of breath. Making minimal urine. Blood pressure running low. Midodrine that was held yesterday because resumed today. Discussed with Dr. Mejia from nephrology. Not a good candidate for hemodialysis because of low blood pressure. Patient lethargic just about answering occasional question. Spoke to patient's son Frank over the phone. Understands prognosis guarded. CODE STATUS changed to DO NOT RESUSCITATE. 03/29/2022: Patient yesterday evening with comfort care. Several family members at the bedside including the son and daughter. On nasal cannula. Some increase in respiration. Otherwise patient appears comfortable. Family would like bereavement counseling which hospice is consulted. 03/30/2022: Family the bedside. Patient . Discussed. No questions. INVESTIGATIONS, reviewed in the clinical context: 03/28/2022: Potassium 5 BUN 75 creatinine 3.24 03/27/2022: Potassium 4.8 BUN 62 creatinine 2.88 White count 5.4 hemoglobin 11.4 platelets 201 potassium 4.3. 58 creatinine 2.2 2-D echocardiogram: EF 55%. Severe right atrial dilatation. Severe left atrial dilatation. Severe mitral regurgitation. Severe tricuspid regurgitation. Previous labs: Creatinine 1.46 on February 13 Cause of : Hypertensive heart disease Assessment and plan: -Acute on chronic CHF with preserved ejection fraction of 50%, not improving -Acute metabolic encephalopathy from renal failure -Severe hypoglycemia from poor oral intake -Severe mitral and tricuspid regurgitation -Normocytic anemia with hemoglobin 7.6. From iron deficiency, secondary to CKD -Acute kidney injury from cardiorenal syndrome/ATN.: Worsening Baseline creatinine 1.46.. -Persistent atrial fibrillation on anticoagulation : Rate controlled -History of ASD closure in 1987 -History of sick sinus syndrome -Essential Hypertension -Chronic kidney disease, stage III likely nephrosclerosis -Primary Osteoarthritis -Chronic lower extremity venous insufficiency Erasto wrap -Anxiety -DO NOT RESUSCITATE/comfort measures Discussed with family at the bedside. Bianca lovell. Consult hospice for bereavement counseling. Patient Condition at Discharge: Stable Plan - Discharge Summary New Discharge Prescriptions: No Action PARoxetine [Paxil] 20 mg PO DAILY Apixaban [Eliquis] 2.5 mg PO BID 30 Days #60 tab Furosemide [Lasix] 40 mg PO BID Docusate Sodium [Dok] 100 mg PO Discharge Medication List PARoxetine [Paxil] 20 mg PO DAILY 11/26/13 [History] Apixaban [Eliquis] 2.5 mg PO BID 30 Days #60 tab 02/10/22 [Rx] Furosemide [Lasix] 40 mg PO BID 03/12/22 [History] Docusate Sodium [Dok] 100 mg PO 03/26/22 [History] Follow up Appointment(s)/Referral(s): Darian Jefferson DO [Primary Care Provider] - 1-2 days [facility] [NON-STAFF] - Discharge Disposition: - Preliminary Cause of Preliminary Cause of : Hypertensive heart disease
== END 2022-03-30 14:24 | disposition expired | DRG 291 ==
LOC: EC 14:09 → 3SCARD 18:06 → 5NMEDONC 03-30 03:09 → 3SCARD 03-30 03:10 → 5NMEDONC 03-30 07:50
PROVIDERS: ADMIT Hospitalist; ATTEND Hospitalist
DX: I13.0 Hypertensive heart and chronic kidney disease with heart failure and stage 1 through stage 4 chronic kidney disease, or unspecified chronic kidney disease (principal); G93.41 Metabolic encephalopathy; I50.33 Acute on chronic diastolic (congestive) heart failure; J96.01 Acute respiratory failure with hypoxia; N17.0 Acute kidney failure with tubular necrosis; I47.20 Ventricular tachycardia, unspecified; I48.21 Permanent atrial fibrillation; I25.10 Atherosclerotic heart disease of native coronary artery without angina pectoris; I27.20 Pulmonary hypertension, unspecified; I45.10 Unspecified right bundle-branch block; Z66 Do not resuscitate; Z51.5 Encounter for palliative care; G89.29 Other chronic pain; M54.2 Cervicalgia; N18.31 Chronic kidney disease, stage 3a; D63.1 Anemia in chronic kidney disease; F41.9 Anxiety disorder, unspecified; D50.9 Iron deficiency anemia, unspecified; E11.22 Type 2 diabetes mellitus with diabetic chronic kidney disease; E11.649 Type 2 diabetes mellitus with hypoglycemia without coma; Z79.01 Long term (current) use of anticoagulants; I08.1 Rheumatic disorders of both mitral and tricuspid valves; R21 Rash and other nonspecific skin eruption; I87.2 Venous insufficiency (chronic) (peripheral); I87.8 Other specified disorders of veins; E78.5 Hyperlipidemia, unspecified; F42.9 Obsessive-compulsive disorder, unspecified; M19.91 Primary osteoarthritis, unspecified site; Z79.899 Other long term (current) drug therapy; Z86.010 Personal history of colon polyps; Z87.74 Personal history of (corrected) congenital malformations of heart and circulatory system; Z88.1 Allergy status to other antibiotic agents; Z88.8 Allergy status to other drugs, medicaments and biological substances
CPT/HCPCS: 36415; 71046; 76770; 80048; 80053; 82533; 83735; 83880; 84484; 85025; 85027; 85610; 85730; 87077; 87086; 87186; 93005; 93306; 94760; 96374; 96375; 96376; 99285